=== PATIENT | female | born 1970 ===

== ENCOUNTER → 2024-05-20 00:18 | Outpatient (CLI) | payer BC, SELFPAY ==
--- NOTE | 2024-05-20 | ETT_ITS ---
APPROVED REPORT Exam: Exercise Treadmill Patient Location: Out-Patient Room/Bed: Stress Nurse: Kirsten Vázquez RN Ordering Provider:GIOVANNI BEGUME, Contact Number: [phone] BMI: 30.99 Baseline Rhythm: Sinus Rhythm Indications: Chest pain Medical History Medical History: HTN, hypothyroidism, migraines, R hip pain Cardiac Medications: Amlodipine, levothyroxine Allergies: NKDA Cardiac Risk Factors: Family hx, HTN Previous Cardiac Procedures: None Pretest Chest Pain Characteristics: 3/10 chest pressure Exercise History: Physically active Physical Disabilities: None Lung Sounds: Clear to auscultation Heart Sounds: Regular Stress Test Details Test: Exercise stress testing was performed using a Ean protocol. Rest Stress HR Resting HR Supine: 68 bpm Max Heart Rate (APMHR): 168 bpm Resting HR Standin bpm Target HR (85% APMHR): 143 bpm Max HR Achieved: 154 bpm % of APMHR: 92 Recovery HR: 90 bpm HR response to stress: Normal HR response to stress BP Resting BP Supine: 146/88 mmHg Resting BP Standin/80 mmHg Max BP: 174/68 mmHg Recovery BP: 142/70 mmHg BP response to stress: Normal blood pressure response to stress. ECG Resting ECG: Sinus Rhythm Ectopy: None Stress ECG: Sinus Tachycardia ST Change: No significant ST segment changes noted Arrhythmia: None Recovery ECG: Sinus Rhythm Recovery ST Change: No significant ST segment changes noted Recovery Arrhythmia: None Clinical Reason for Termination: Target HR Achieved Stress Symptoms: 3/10 chest pressure unchanged from rest Exercise duration: 09 min30 sec Highest Stage Reached: Stage 4: 4.2 mph at 16% grade. Exercise capacity: 10.99 METs Angina Score: Non-Limiting Ann Treadmill Score: 5.5 Rate Pressure Product: 03185 Stress ECG Conclusion 1. Resting electrocardiogram showed low voltage 2. Patient exercised on the Ean protocol and completed a workload of 10.99 METS 3. Normal heart rate and blood pressure response to exercise. The patient achieved 92% of predicted heart rate for age 4. There was no electrocardiographic evidence of myocardial ischemia 5. There were no significant dysrhythmias Ann Treadmill Score is 5.5 which is Low risk.
--- OUTSIDE RECORDS SUMMARY | 2024-05-20 00:21 | XMS_ITS | Continuity of Care Document ---
Author Organization [facility] Address [address] [place] [address] Care Team Providers Care Preschool Teacher Assistant Name Role Phone Robert Toussaint Primary Care Physician Encounter [facility] Date(s): 01/07/23 - 01/07/[address] [address] Discharge Disposition: Home or Self Care Attending Physician: Robert Toussaint MD Admitting Physician: Robert Toussaint MD Referring Physician: Robert Toussaint MD Allergies, Adverse Reactions, Alerts No Known Medication Allergies Assessment and Plan Future Appointments Immunizations Given and Recorded Vaccine Date Status Refusal Reason influenza virus vaccine, live 07/28/21 Recorded influenza virus vaccine, live 08/03/20 Recorded influenza virus vaccine, live 07/20/19 Recorded influenza virus vaccine, live 08/05/18 Recorded SARS-CoV-2 (COVID-19) mRNA-1273 vaccine 11/15/20 R ecorded SARS-CoV-2 (COVID-19) mRNA-1273 vaccine 10/19/20 R ecorded tetanus-diphth toxoids (Td) adult/adol 05/25/19 Re corded influenza virus vaccine, inactivated 08/22/16 Braden rded influenza virus vaccine, inactivated 08/10/15 Braden rded influenza virus vaccine, inactivated 07/28/14 Braden rded influenza virus vaccine, inactivated 07/29/13 Braden rded influenza virus vaccine, inactivated 07/27/12 Braden rded influenza virus vaccine, inactivated 07/11/11 Braden rded influenza virus vaccine, inactivated 07/27/10 Braden rded influenza virus vaccine, inactivated 08/14/09 Braden rded Novel [id number], all formulation 08/22/09 Recorded tetanus/diphth/pertuss (Tdap) adult/adol 08/20/08 Recorded measles/mumps/rubella virus vaccine 03/05/04 Recor ded varicella virus vaccine 03/05/04 Recorded Medications SHIPPING FEE NON URGENT SHIPPING FEE NON URGENT, VTDOHTB MED SHIPPING Start Date: 05/13/22 Status: Ordered [place] RIFAMPIN 300MG CAP VT RIFAMPIN 300MG CAP, See Instructions, TAKE 2 CAPSULES BY MOUTH DAILY Start Date: 05/13/22 Status: Ordered Problem List Condition Confirmation Course Effective Dates Status H ealth Status Informant Genuine stress incontinence Confirmed Active On examination - breast lump-upper out-quad Confirmed Active Lateral epicondylitis Confirmed Active Lipoma of back Confirmed 09/22/19 Active Melanocytic nevus Confirmed Active Migraine Confirmed Active Spasmodic torticollis Confirmed Active Verruca plantaris Confirmed Active Procedures Procedure Date Related Diagnosis Body Site Status Mammogram - screening 1 08/06/22 C ompleted Colonoscopy 2 07/25/22 Completed Eye surgery 05/02/22 Completed Excision of lipoma 09/30/19 Comple codi Procedure on knee 3 08/26/19 Compl eted PAP test date 4 01/13/19 Completed Partial meniscectomy of knee 12/22/12 Completed Tubal ligation 10/26/95 Completed 210 yr cb 3Left knee 4Pap Due - 12/2023 08/20/08 - WNL; 08/27/10 - WNL/Neg; 10/13/15 - ASCUS/Neg; 01/14/19 - Neg/Neg Results Laboratory List Name Date Basic Metabolic Panel 01/07/23 CBC w/ Diff 01/07/23 Lipid Panel 01/07/23 TSH w/ Rflx to Free T4 01/07/23 Free T4 01/07/23 Automated Diff 01/07/23 Most recent to oldest [Reference Range]: 1 WBC [5.0-10.0 x10^3/mcL] 4.7 x10^3/mcL *LOW* (01/07/23 7:57 AM) RBC [4.1-5.3 x10^6/mcL] 4.6 x10^6/mcL (01/07/23 7:57 AM) Neutro Auto [40.0-75.0 %] 64.1 % (01/07/23 7:57 AM) Lymph Auto [20.0-50.0 %] 25.1 % (01/07/23 7:57 AM) Broome Auto [2.0-15.0 %] 8.3 % (01/07/23 7:57 AM) Basophil Auto [0.0-1.0 %] 0.4 % (01/07/23 7:57 AM) BUN [7-18 mg/dL] 20 mg/dL *HI* (01/07/23 7:57 AM) Cholesterol Total [50-200 mg/dL] 199 mg/ dL (01/07/23 7:57 AM) LDL [0-130 mg/dL] 124 mg/dL (01/07/23 7:57 AM) Glucose Level [74-106 mg/dL] 92 mg/dL (01/07/23:57 AM) Potassium Level [3.5-5.1 mmol/L] 3.7 mmo l/L (01/07/23:57 AM) MCV [80.0-96.0] 87.5 (01/07/23 7:57 AM) HDL [40-60 mg/dL] 53 mg/dL (01/07/23 7:57 AM) T4 Free [0.76-1.46 ng/dL] 0.78 ng/dL (01/07/23 7:57 AM) MCHC [31.0-35.0 g/dL] 32.5 g/dL (01/07/23 7:57 AM) Sodium Level [136-145 mmol/L] 141 mmol/L (01/07/23 7:57 AM) Hct [37.0-47.0 %] 40.0 % (01/07/23 7:57 AM) Triglycerides [0-150 mg/dL] 110 mg/dL (01/07/23 7:57 AM) Calcium Level [8.5-10.1 mg/dL] 8.8 mg/dL (01/07/23 7:57 AM) MCH [26.0-32.0 pg] 28.4 pg (01/07/23 7:57 AM) Neutro Absolute 3.0 x10^3/mcL *NA* (01/07/23 7:57 AM) Hgb [12.0-16.0 g/dL] 13.0 g/dL (01/07/23 7:57 AM) Platelets [130-450 x10^3/mcL] 225 x10^3/ mcL (01/07/23 7:57 AM) CO2 [21-32 mmol/L] 26 mmol/L (01/07/23 7:57 AM) TSH [0.358-3.740 mcIntlUnit/mL] 6.206 mc IntlUnit/mL *HI* (01/07/23 7:57 AM) eGFR Non-AA [>=60] 88 (01/07/23 7:57 AM) eGFR AA [>=60] 88 (01/07/23 7:57 AM) Chloride Level [98-107 mmol/L] 105 mmol/ L (01/07/23 7:57 AM) RDW-CV [11.7-17.0 %] 11.9 % (01/07/23 7:57 AM) Imm Gran Auto [0.0-0.9 %] 0.2 % (01/07/23 7:57 AM) Creatinine Level [0.55-1.02 mg/dL] 0.81 mg/dL (01/07/23 7:57 AM) Eos, Auto [1.0-6.0 %] 1.9 % (01/07/23 7:57 AM) Social History Social History Type Response Tobacco Never tobacco user T obacco Use:. Sex Female Patient Care team information Care Team Personnel Name: Robert Toussaint MD Position: Physician Member Role: Primary Care Physician Address: Address: [address] [place] [id number] Care Team Related Persons Name: VANESSA BROWN Address: Alternate [address] [facility] [address] Address: Home [address] [place], [place] [phone] Name: NIRMAL AMBROSE Address: Home [address] [place] [phone] Name: RON CARTER Address: Home
--- OUTSIDE RECORDS SUMMARY | 2024-05-20 00:21 | XMS_ITS | Continuity of Care Document ---
Author Organization [facility] Address [address] [place] [address] Care Team Providers Care Cook Vacuum Kettle Name Role Phone Robert Toussaint Primary Care Physician [phone] Encounter [facility] Date(s): 01/06/23 - 01/06/[address] [address] Discharge Disposition: Home or Self Care Attending [...] virus vaccine, inactivated 08/14/09 Braden rded Novel [id number], all formulation 08/22/09 Recorded tetanus/diphth/pertuss (Tdap) adult/adol [...] WNL/Neg; 10/13/15 - ASCUS/Neg; 01/14/19 - Neg/Neg Social History Social History Type Response Tobacco Never tobacco user T obacco Use:. Sex Female Patient Care team information Care Team Personnel Name: Robert Toussaint MD Position: Physician Member Role: Primary Care Physician Address: Address: [address] [place] [address] [place] Care Team Related Persons Name: VANESSA BROWN Address: Alternate [address] [facility] [address] Address: Home [address] [place], [place] [phone] Name: NIRAML AMBROSE Address: Home [address] [place] [phone] Name: RON CARTER Address: Home
--- OUTSIDE RECORDS SUMMARY | 2024-05-20 00:21 | XMS_ITS | Encounter Summary ---
Author Organization [facility] [place] [address] Care Team Providers Care Issuer Name Role Phone Kris Vang DO Primary Care Provider [phone] Encounter Details Date Type Department Care Team (Latest Contact Info) Description 09/05/2023 Travel Social History Tobacco Use Types Packs/Day Years Used Date Smoking Tobacco: Never Smokeless Tobacco: Never Sex and Gender Information Value Date Recorded Sex Assigned at Not on file Gender Identity Not on file Sexual Orientation Not on file documented as of this encounter Plan of Treatment Upcoming Encounters Date Type Department Care Team (Late st Contact Info) Description 08/03/2024 10:45 AM EDT Scheduled View Only [facility] [place] [address] Nurse, Theresa EATON RN 08/03/2024 11:00 AM EDT Office Visit Obstetrics [place] [phone] Elvia Renee MD [facility] [place] [address] documented as of this encounter Visit Diagnoses Not on filedocumented in this encounter Care Teams Issuer Relationship Specialty Start Date End Date Kris Vang DO [address] [place] [address] [place] [phone] PCP - General General Internal Medicine 07/30/1902/24 documented as of this encounter
--- OUTSIDE RECORDS SUMMARY | 2024-05-20 00:21 | XMS_ITS | Continuity of Care Document ---
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 Name Role Phone Robert Toussaint Primary Care Physician Encounter [facility] Date(s): 04/27/24 - 04/27/[address] [id number] Encounter Diagnosis Atypical chest pain(Discharge Diagnosis) - 04/27/24 Discharge Disposition: Home or Self Care Attending Physician: Brendon Baker MD Admitting Physician: Brendon Baker MD Allergies, Adverse Reactions, Alerts No Known Medication Allergies Assessment and Plan Extracted from: Title:ED Provider Note Author:Mihai Zuniga MD Date:04/28/24 Assessment/Plan 1.??Atypical chest pain??R07.89 Patient Education Nonspecific Chest Pain, Adult Troponin Test Follow Up With When Contact Information Follow up with primary care provider Within 1 to 2 days Additional Instructions: You been seen in the emergency department and no emergent medical condition has been identified. ??It is recommended that you follow-up with your primary care provider within the next??48 hours. ??If your condition worsens or you are unable to??arrange for appropriate follow-up please??reach out to the emergency department by phone or return to the emergency department for repeat evaluation. Future Appointments Future Scheduled Tests Laboratory* Thyroid Stimulating Hormone 04/07/24 * TSH w/ Rflx to Free T4 07/07/24 * TSH w/ Rflx to Free T4 07/07/24 Immunizations Given and Recorded Vaccine Date Status [...] virus vaccine, inactivated 08/14/09 Braden rded Novel [id number], all formulation 08/22/09 Recorded tetanus/diphth/pertuss (Tdap) adult/adol 08/20/08 Recorded measles/mumps/rubella virus vaccine 03/05/04 Recor ded varicella virus vaccine 03/05/04 Recorded Medications amLODIPine 2.5 mg oral tablet 1 tab, Oral, Daily, # 30 tab, 1 Refill(s), Pharmacy: [facility], 162, cm, 04/19/24 7:23:00 EDT, Height, 80.8, kg, 04/19/24 7:21:00 EDT, Weight Dosing Start Date: 04/27/24 Status: Ordered amoxicillin 500 mg oral capsule 500 mg = 1 cap, Oral, BID, # 14 cap, 0 Refill(s), Pharmacy: [facility], 160.6, cm, 01/26/24 15:11:00 EDT, Height, 81.15, kg, 01/26/24 15:21:00 EDT, Weight Dosing Start Date: 01/28/24 Stop Date: 02/04/24 Status: Ordered estradiol 10 mcg vaginal tablet 10 mcg = 1 tab, Vaginal, Sun/Thurs, # 26 tab, 4 Refill(s), Pharmacy: [facility], 158.75, cm, 07/10/23 15:34:00 EDT, Height, 80.9, kg, 01/12/24 15:58:00 EDT, Weight Dosing Start Date: 01/19/24 Stop Date: 04/13/25 Status: Ordered ibuprofen 200 mg oral tablet 400 mg = 2 tab, Oral, every 4 hr, PRN as needed for pain, # 120 tab, 0 Refill(s) Start Date: 01/12/24 Status: Ordered levothyroxine 75 mcg (0.075 mg) oral tablet 75 mcg = 1 tab, Oral, Daily, # 90 tab, 3 Refill(s), Pharmacy: [facility], 160.6, cm, 01/26/24 15:11:00 EDT, Height, 81.15, kg, 01/26/24 15:21:00 EDT, Weight Dosing Start Date: 04/06/24 Status: Ordered Tylenol PM 0 Refill(s) Start Date: 01/12/24 Status: Ordered Problem List Condition Confirmation Course Effective Dates Status H ealth Status Informant Degenerative disc disease, cervical Confirmed Active Stress incontinence, female Confirmed Active Genuine stress incontinence Confirmed Active Right hip pain Confirmed Active On examination - breast lump-upper out-quad Confirmed Active Hypertension Confirmed Active Hypothyroidism Confirmed Active Lateral epicondylitis Confirmed Active Lipoma of back Confirmed 09/22/19 Active Melanocytic nevus Confirmed Active Migraine Confirmed Active Spasmodic torticollis Confirmed Active Verruca plantaris Confirmed Active Procedures Procedure Date Related Diagnosis Body Site Status Excision 04/18/24 Completed Mammogram - screening 1 08/06/22 C ompleted Colonoscopy 2 07/25/22 Completed Eye surgery 05/02/22 Completed Excision of lipoma 09/30/19 Comple codi Procedure on knee 3 08/26/19 Compl eted Due 12/2023 4 01/13/19 Completed Partial meniscectomy of knee 12/22/12 Completed Tubal ligation 10/26/95 Completed 89 yr cb 3Left knee 4Pap Due - 12/2023 08/20/08 - WNL; 08/27/10 - WNL/Neg; 10/13/15 - ASCUS/Neg; 01/14/19 - Neg/Neg Results Laboratory List Name Date CBC w/ Diff 04/27/24 Comprehensive Metabolic Panel (CMP) D-Dimer 04/27/24 Troponin-I 04/27/24 Automated Diff 04/27/24 Most recent to oldest [Reference Range]: 1 WBC [5.0-10.0 x10^3/mcL] 6.7 x10^3/mcL (04/27/24 7:35 PM) RBC [4.1-5.3 x10^6/mcL] 4.4 x10^6/mcL (04/27/24 7:35 PM) Neutro Auto [40.0-75.0 %] 65.7 % (04/27/24 7:35 PM) Lymph Auto [20.0-50.0 %] 23.4 % (04/27/24 7:35 PM) [place] Auto [2.0-15.0 %] 8.8 % (04/27/24 7:35 PM) Basophil Auto [0.0-1.0 %] 0.3 % (04/27/24 7:35 PM) BUN [7-18 mg/dL] 16 mg/dL (04/27/24 7:35 PM) Glucose Level [74-106 mg/dL] 91 mg/dL (04/27/24 7:35 PM) Potassium Level [3.5-5.1 mmol/L] 3.4 mmo l/L *LOW* (04/27/24 7:35 PM) MCV [80.0-96.0 fL] 83.2 fL (04/27/24 7:35 PM) AST [15-37 unit/L] 18 unit/L (04/27/24 7:35 PM) ALT [14-59 unit/L] 18 unit/L (04/27/24 7:35 PM) MCHC [31.0-35.0 g/dL] 34.3 g/dL (04/27/24 7:35 PM) Troponin-I [0.0-51.4 pg/mL] <5.0 pg/mL (04/27/24 7:35 PM) Sodium Level [136-145 mmol/L] 138 mmol/L (04/27/24 7:35 PM) Hct [37.0-47.0 %] 36.7 % *LOW* (04/27/24 7:35 PM) Calcium Level [8.5-10.1 mg/dL] 9.0 mg/dL (04/27/24 7:35 PM) Albumin Level [3.4-5.0 g/dL] 3.9 g/dL (04/27/24 7:35 PM) Protein Total [6.4-8.2 g/dL] 7.6 g/dL (04/27/24 7:35 PM) MCH [26.0-32.0 pg] 28.6 pg (04/27/24 7:35 PM) Neutro Absolute 4.4 x10^3/mcL *NA* (04/27/24 7:35 PM) Bilirubin Total [0.2-1.0 mg/dL] 0.4 mg/d L (04/27/24 7:35 PM) Hgb [12.0-16.0 g/dL] 12.6 g/dL (04/27/24 7:35 PM) Alk Phos [46-146 unit/L] 81 unit/L (04/27/24 7:35 PM) Platelets [130-450 x10^3/mcL] 241 x10^3/ mcL (04/27/24 7:35 PM) CO2 [21-32 mmol/L] 25 mmol/L (04/27/24 7:35 PM) eGFR Non-AA [>=60] 94 (04/27/24 7:35 PM) eGFR AA [>=60] 94 (04/27/24 7:35 PM) Chloride Level [98-107 mmol/L] 102 mmol/ L (04/27/24 7:35 PM) RDW-CV [11.5-14.5 %] 12.4 % (04/27/24 7:35 PM) Imm Gran Auto [0.0-0.9 %] 0.3 % (04/27/24 7:35 PM) Slide Review Not Indicated (04/27/24 7:35 PM) Creatinine Level [0.55-1.02 mg/dL] 0.76 mg/dL (04/27/24 7:35 PM) D Dimer, (Quant.) [0.00-0.50 mg/L] 0.36 mg/L 1 (04/27/24 7:35 PM) Eos, Auto [1.0-6.0 %] 1.5 % (04/27/24 7:35 PM) 1Interpretive Data: Exclusion of PE: Effective July 15, 2012 a new D-Dimer assay [Knozen] is being implemented, this test has a new reference range <0.50 mg/L FEU. This assay was evaluated in a multi-center study to validate the exclusion of PE using fresh specimens collected from 701 consecutive patients presenting in the ED with suspected PE. Study patients were evaluated using the Wells' rules to estimate high, moderate or low probability of PE, a D-Dimer result of <0.50 mg/L FEU was considered negative and a D-Dimer result >/= 0.50 was considered positive for PE. Vital Signs Most recent to oldest [Reference Range]: 1 2 3 Heart Rate Monitored [60-100 bpm] 77 bpm (04/27/24 8:39 PM) 75 bpm (04/27/24 7:30 PM) 78 bpm (04/27/24 6:38 PM) Respiratory Rate [12-24 br/min] 14 br/min (04/27/24 8:39 PM) 16 br/min (04/27/24 7:30 PM) 17 br/min (04/27/24 6:38 PM) Blood Pressure [90-140/60-90 mmHg] 129/74mmHg (04/27/24 7:30 PM) 119/87mmHg (04/27/24 6:38 PM) Social History Social History Type Response Tobacco Never tobacco user T obacco Use:. Sex Female Hospital Discharge Instructions Patient Education 04/27/2024 19:38:16 Nonspecific Chest Pain, Adult Nonspecific Chest Pain, Adult Chest pain is an uncomfortable, tight, or painful feeling in the chest. The pain can feel like a crushing, aching, or squeezing pressure. A person can feel a burning or tingling sensation. Chest paincan also be felt in your back, neck, jaw, shoulder, or arm. This pain can be worse when you move, sneeze, or take a deep breath. Chest pain can be caused by a condition that is life-threatening. This must be treated right away. It can also be caused by something that is not life- threatening. If you have chest pain, it can be hard to know the difference, so it is important to get help right away to make sure that you do not have a serious condition. Some life-threatening causes of chest pain include: ??? Heart attack. ??? A tear in the body's main blood vessel (aortic dissection). ??? Inflammation around your heart (pericarditis). ??? A problem in the lungs, such as a blood clot (pulmonary embolism) or a collapsed lung (pneumothorax). Some non life-threatening causes of chest pain include: ??? Heartburn. ??? Anxiety or stress. ??? Damage to the bones, muscles, and cartilage that make up your chest wall. ??? Pneumonia or bronchitis. ??? Shingles infection (varicella-zoster virus). Your chest pain may come and go. It may also be constant. Your health care provider will do tests and other studies to find the cause of your pain. Treatment will depend on the cause of your chest pain. Follow these instructions at home: Medicines ??? Take [id number] and prescription medicines only as told by your health care provider. ??? If you were prescribed an antibiotic medicine, take it as told by your health care provider. Donot stop taking the antibiotic even if you start to feel better. Activity ??? Avoid any activities that cause chest pain. ??? Do not lift anything that is heavier than 10 lb (4.5 kg), or the limit that you are told, untilyour health care provider says that it is safe. ??? Rest as directed by your health care provider. ??? Return to your normal activities only as told by your health care provider. Ask your health care provider what activities are safe for you. Lifestyle ??? Do not use any products that contain nicotine or tobacco, such as cigarettes, e-cigarettes, andchewing tobacco. If you need help quitting, ask your health care provider. ??? Do not drink alcohol. ??? Make healthy lifestyle changes as recommended. These may include: ??? Getting regular exercise. Ask your health care provider to suggest some exercises that are safefor you. ??? Eating a heart-healthy diet. This includes plenty of fresh fruits and vegetables, whole grains,low-fat (lean) protein, and low-fat dairy products. A dietitian can help you find healthy eating options. ??? Maintaining a healthy weight. ??? Managing any other health conditions you may have, such as high blood pressure (hypertension) or diabetes. ??? Reducing stress, such as with yoga or relaxation techniques. General instructions ??? Pay attention to any changes in your symptoms. ??? It is up to you to get the results of any tests that were done. Ask your health care provider, or the department that is doing the tests, when your results will be ready. ??? Keep all follow-up visits as told by your health care provider. This is important. ??? You may be asked to go for further testing if your chest pain does not go away. Contact a health care provider if: ??? Your chest pain does not go away. ??? You feel depressed. ??? You have a fever. ??? You notice changes in your symptoms or develop new symptoms. Get help right away if: ??? Your chest pain gets worse. ??? You have a cough that gets worse, or you cough up blood. ??? You have severe pain in your abdomen. ??? You faint. ??? You have sudden, unexplained chest discomfort. ??? You have sudden, unexplained discomfort in your arms, back, neck, or jaw. ??? You have shortness of breath at any time. ??? You suddenly start to sweat, or your skin gets clammy. ??? You feel nausea or you vomit. ??? You suddenly feel lightheaded or dizzy. ??? You have severe weakness, or unexplained weakness or fatigue. ??? Your heart begins to beat quickly, or it feels like it is skipping beats. These symptoms may represent a serious problem that is an emergency. Do not wait to see if the symptoms will go away. Get medical help right away. Call your local emergency services (911 in the [place] Do not drive yourself to the hospital. Summary ??? Chest pain can be caused by a condition that is serious and requires urgent treatment. It may also be caused by something that is not life-threatening. ??? Your health care provider may do lab tests and other studies to find the cause of your pain. ??? Follow your health care provider's instructions on taking medicines, making lifestyle changes, and getting emergency treatment if symptoms become worse. ??? Keep all follow-up visits as told by your health care provider. This includes visits for any further testing if your chest pain does not go away. This information is not intended to replace advice given to you by your health care provider. Make sure you discuss any questions you have with your health care provider. Document Revised: 12/25/2021 Document Reviewed: 12/27/2021 [employer] Patient Education ?? 2022 [employer] 04/27/2024 19:38:15 Troponin Test Troponin Test Why am I having this test? The troponin test is used to help determine if you have had a heart attack or other injury to the heart muscle. The heart muscle is also called a cardiac muscle. You may have this test if: ??? You are having chest pain or other symptoms of a heart attack. ??? You have heart disease. ??? You have had heart surgery. ??? You had complications during surgery, such as bleeding or very low blood pressure. ??? You have a critical illness (sepsis). ??? You have severe anemia (low hemoglobin). The test is used along with other tests to diagnose heart damage (ischemia). What is being tested? This test measures the concentration of troponin in your blood. Troponins are proteins that help muscles contract. Cardiac-specific troponins are normally present in very small amounts in the blood. When there is damage to heart muscle cells, troponins are released into the blood. The more damage there is, the greater the concentration of troponins. There is more than one type of troponin protein. Depending on the lab where you have your test done, you may have troponin T, troponin I, or a high-sensitivity troponin (hsT) tested. When a person has damage to the heart cells, levels of troponin can become elevated in the blood within a few hours after the injury and may remain elevated for 7???14 days. What kind of sample is taken? A blood sample is required for this test. It is usually collected by inserting a needle into a blood vessel. Usually, the first blood sample is collected, and then another sample is collected 1???6 hours later. Another sample may be collected after 6 hours if: ??? Your results were normal, but you are at risk for a heart attack. ??? You had a heart attack, and your health care provider wants to monitor your treatment. How do I prepare for this test? There is no preparation required for this test. How are the results reported? Your test results will be reported as values. Your health care provider will compare your results to normal ranges that were established after testing a large group of people (reference ranges). Reference ranges may vary among labs and hospitals. For this test, some examples of common reference ranges are: ??? Cardiac troponin T: less than 0.1 ng/mL. ??? Cardiac troponin I: less than 0.04 ng/mL. ??? hsT: less than 10 ng/L in women and less than 15 ng/L in men. What do the results mean? Troponin values above the reference values may indicate: ??? Heart attack. ??? Heart failure. ??? Other injury to the heart muscle. ??? Inflammation of the heart muscle (myocarditis). A result above the reference range does not always mean that you have heart damage. Test levels canbe falsely elevated in people after dialysis or in people with certain medical conditions. Talk with your health care provider about what your results mean. Questions to ask your health care provider Ask your health care provider, or the department that is doing the test: ??? When will my results be ready? How will I get my results? What are my treatment options? What other tests do I need? What are my next steps? Summary ??? The cardiac-specific troponin test is used to determine if you have had a heart attack or otherinjury to cardiac muscle. ??? Usually, the first blood sample is collected, and then another blood sample is collected 1???6 hours later, depending on the test performed. ??? Troponin values above the reference values may indicate heart attack or other injury to cardiacmuscle. ??? Talk with your health care provider about what your results mean. This information is not intended to replace advice given to you by your health care provider. Make sure you discuss any questions you have with your health care provider. Document Revised: 05/17/2022 Document Reviewed: 05/17/2022 [employer] Patient Education ?? 2022 [employer] Follow Up Care 04/27/2024 18:31:44 With:Follow up with primary care provider Address: When:1 to 2 days Comments:You been seen in the emergency department and no emergent medical condition has been identified. ??It is recommended that you follow-up with your primary care provider within the next??48 hours. ??Ifyour condition worsens or you are unable to??arrange for appropriate follow-up please??reach out [facility] emergency department by phone or return to the emergency department for repeat evaluation. Physician Emergency department Note * Mihai Zuniga MD: PERFORM Event Display: ED Note Physician Authored Date: [id number] BERNIE AMBROSE :1970 Age:54 years Sex:Female Visit Date:04/27/2024 Primary Care Physician: Robert Toussaint MD Basic Information Time Seen: Mihai Zuniga MD / 04/27/2024 19:10 Chief Complaint Intermittent right side upper chest/shoulder pain x 1 week with it becoming more constant today. SOme ??tingling in right arm History Of Present Illness: Patient with a recent history of a lipoma removal from the right outer hip.?? Now presents with??several days of intermittent chest??pressure and tightness.?? No shortness of breath.?? Some tingling to the right arm.?? Has not had symptoms??like this in the past and they presented post operatively. ?? She denies fevers denies cough.?? States that the pain from the operation is subsided??and she feels like she is recovering well. No previous episodes of chest pain similar to this that required presentation to emergency department Review of Systems: Constitutional:?No??fevers,?No??chills,?No??sweats Eye:?No??recent visual problems ENT:?No??ear pain,?No??nasal congestion,?No??sore throat Respiratory:?No??shortness of breath,?No??cough Cardiovascular:?palpitations,?No??syncope Gastrointestinal:?Nonausea,?No??vomiting,?No??diarrhea Genitourinary:?No??hematuria Andi/Lymph:?No??bruising tendency,?No??swollen lymph glands Endocrine:?No??excessive thirst,??No??excessive hunger Musculoskeletal:??No??back pain,??No??neck pain,??No??joint pain,??No??muscle pain,??No??decreased range of motion Integumentary:?No??rash,?No??pruritus,?No??abrasions Neurologic: Alert & oriented X 4 Psychiatric:?No??anxiety,?No??depression Physical Exam Vitals & Measurements HR:??77??(Monitored)?? RR:??14?? BP:??129/74?? SpO2:??97%?? Pain Score:??5?? O2 Therapy:??Room air?? General: Alert and oriented, well nourished,?No??acute distress Eye: PERRL, EOMI,?Normal??conjunctiva HENT: Normocephalic,??Normal?? hearing, moist oral mucosa,?No??scleral icterus Neck:??FROM,??No??JVD Lungs: Non-labored?? respiration Heart:?Normal?? rate,?Regular??rhythm,?No??peripheral edema, Adequate peripheral perfusion Abdomen: Soft, non-tender, non-distended,?Normal?? bowel sounds,?No??masses Musculoskeletal:?Normal?? range of motion and strength,?No??tenderness,?No??swelling Skin:??No??rashes,?No??lesions, Dry Neurologic: Awake, alert and oriented X4, CN II-XII intact, Steady Gait Psychiatric: Cooperative, appropriate mood and affect. Linear thought process Medical Decision Making: Exam without evidence of volume overload so doubt heart failure. EKG without signs of active ischemia. Given the timing of pain to ER presentation, single troponin_ delta troponin_ was _ so doubt NSTEMI. Presentation not consistent with acute PEDDIMER??NEGATIVE??,??pneumothorax (not visualized on chest xr), thoracic aortic dissection, pericarditis, tamponade, pneumonia (no infectious symptoms, clear chest xr), myocarditis (no recent illness, neg trop). HEART score:0??so plan to discharge patient home with PMD follow up__. Procedure No Qualifying Data Assessment/Plan 1.??Atypical chest pain??R07.89 Patient Education Nonspecific Chest Pain, Adult Troponin Test Follow Up With When Contact Information Follow up with primary care provider Within 1 to 2 days Additional Instructions: You been seen in the emergency department and no emergent medical condition has been identified. ??It is recommended that you follow-up with your primary care provider withinthe next??48 hours. ??If your condition worsens or you are unable to??arrange for appropriate follow-up please??reach out to the emergency department by phone or return to the emergency department for repeat evaluation. Medication Reconciliation Unchanged acetaminophen-diphenhydramine (Tylenol PM) ?? amLODIPine (amLODIPine 2.5 mg oral tablet)1 tab Oral (given by mouth) every day. Refills: 1. ?? amoxicillin (amoxicillin 500 mg oral capsule)1 Capsules Oral (given by mouth) 2 times a day for 7 Days. Refills: 0. ?? estradiol topical (estradiol 10 mcg vaginal tablet)1 tab Vaginal (in the vagina) Sun/Thurs for 90 Days. Refills: 4. ?? ibuprofen (ibuprofen 200 mg oral tablet)2 tab Oral (given by mouth) every 4 hours as needed as needed for pain. ?? levothyroxine (levothyroxine 75 mcg (0.075 mg) oral tablet)1 tab Oral (given by mouth) every day. Refills: 3. Problem List/Past Medical History Ongoing Degenerative disc disease, cervical Genuine stress incontinence Hypertension Hypothyroidism Lateral epicondylitis Lipoma of back Melanocytic nevus Migraine On examination - breast lump-upper out-quad Right hip pain Spasmodic torticollis Stress incontinence, female Verruca plantaris Historical Procedure/Surgical History ???Mammogram - screening (08/07/2022)???Colonoscopy (07/26/2022)???Eye surgery (05/03/2022)???Excision of lipoma (10/01/2019)???Procedure on knee (08/27/2019)???Due 12/2023 (01/14/2019)???Partial meniscectomy of knee (12/23/2012)???Tubal ligation (10/27/1995) Allergies No Known Medication Allergies Social History Alcohol Current, 1-2 times per month Electronic Cigarette/Vaping Electronic Cigarette Use: Never. Home/Environment Feels unsafe at home: No. Sexual Other contraceptive use: Tubal Ligation. Substance Use Never Tobacco Never tobacco user Tobacco Use:. Family History Diabetes mellitus: Father and Sister. Epilepsy: Brother. Heart disease: Father. Hypertensive disorder: Father. Hypothyroidism: Mother. Malignant tumor of prostate: Father. Diagnostic Results ECG Sinus at a rate of [address] changes consistent with ischemia.?? No ectopy.?? No [id number] pattern Lab Results CBC and Differential?? LATEST RESULTS?? HISTORICAL RESULTS?? WBC?? 04/27/24 19:35?? 6.7?? 01/07/23?? 4.7 ??Low?? RBC?? 04/27/24 19:35?? 4.4?? 01/07/23?? 4.6?? Hgb?? 04/27/24 19:35?? 12.6?? 01/07/23?? 13.0?? Hct?? 04/27/24 19:35?? 36.7 ??Low?? 01/07/23?? 40.0?? MCV?? 04/27/24 19:35?? 83.2?? 01/07/23?? 87.5?? MCH?? 04/27/24 19:35?? 28.6?? 01/07/23?? 28.4?? MCHC?? 04/27/24 19:35?? 34.3?? 01/07/23?? 32.5?? RDW-CV?? 04/27/24 19:35?? 12.4?? 01/07/23?? 11.9?? Platelets?? 04/27/24 19:35?? 241?? 01/07/23?? 225?? Neutro Auto?? 04/27/24 19:35?? 65.7?? 01/07/23?? 64.1?? Lymph Auto?? 04/27/24 19:35?? 23.4?? 01/07/23?? 25.1?? [place] Auto?? 04/27/24 19:35?? 8.8?? 01/07/23?? 8.3?? Eos, Auto?? 04/27/24 19:35?? 1.5?? 01/07/23?? 1.9?? Basophil Auto?? 04/27/24 19:35?? 0.3?? 01/07/23?? 0.4?? Imm Gran Auto?? 04/27/24 19:35?? 0.3?? 01/07/23?? 0.2?? Neutro Absolute?? 04/27/24 19:35?? 4.4?? 01/07/23?? 3.0?? Slide Review?? 04/27/24 19:35?? Not Indicated? Coagulation?? LATEST RESULTS?? D Dimer, (Quant.)?? 04/27/24 19:35?? 0.36? Routine Chemistry?? LATEST RESULTS?? HISTORICAL RESULTS?? Sodium Level?? 04/27/24 19:35?? 138?? 01/12/24?? 137?? Potassium Level?? 04/27/24 19:35?? 3.4 ??Low?? 01/12/24?? 3.7?? Chloride Level?? 04/27/24 19:35?? 102?? 01/12/24?? 102?? CO2?? 04/27/24 19:35?? 25?? 01/12/24?? 27?? Alk Phos?? 04/27/24 19:35?? 81? AST?? 04/27/24 19:35?? 18? ALT?? 04/27/24 19:35?? 18? BUN?? 04/27/24 19:35?? 16?? 01/12/24?? 17?? Glucose Level?? 04/27/24 19:35?? 91?? 01/12/24?? 95?? Creatinine Level?? 04/27/24 19:35?? 0.76?? 01/12/24?? 0.75?? eGFR AA?? 04/27/24 19:35?? 94?? 01/12/24?? 96?? eGFR Non-AA?? 04/27/24 19:35?? 94?? 01/12/24?? 96?? Calcium Level?? 04/27/24 19:35?? 9.0?? 01/12/24?? 9.3?? Protein Total?? 04/27/24 19:35?? 7.6? Albumin Level?? 04/27/24 19:35?? 3.9? Bilirubin Total?? 04/27/24 19:35?? 0.4? Cardiac Isoenzymes?? LATEST RESULTS?? Troponin-I?? 04/27/24 19:35?? <5.0? Electronically Signed on 04/28/2024 02:45 EDT Mihai Zuniga MD Emergency department Discharge instructions * Mihai Zuniga MD: PERFORM Event Display: ED Discharge Information Authored Date: [id number] BERNIE AMBROSE Juice :1970 Age:54 years Sex:Female Visit Date:04/27/2024 Primary Care Physician: Robert Toussaint MD Discharge Instructions We would like to thank you for allowing us to assist you with your healthcare needs. The following includes patient education materials and information regarding your injury/illness. Diagnosis from Today's Visit Atypical chest pain Discharge Vitals Heart Rate??(Monitored) 78 Respiratory Rate?? 17 Blood Pressure?? 119/87?? SpO2?? 100% Allergies No Known Medication Allergies What to Do Next You Need to Schedule the Following Appointments Follow Up with??Follow up with primary care provider When:??Within 1 to 2 days Why: You been seen in the emergency department and no emergent medical condition has been identified. ??It is recommended that you follow-up with your primary care provider within the next??48 hours.??If your condition worsens or you are unable to??arrange for appropriate follow-up please??reach out to the emergency department by phone or return to the emergency department for repeat evaluation. Upcoming Scheduled Appointments Friday 8:00 AM EDT ?? With: Fabricio Brooks MD Where: [facility] [address] [place] [address] Status: Confirmed Friday 8:30 AM EDT ?? With: Tania Aguirre CNM Where: [facility] [address], [address] [place] [address] Status: Confirmed You were treated today on an emergency basis; it may be barber to contact your primary care provider to notify them of your visit today. You may have been referred to your regular doctor or a specialist, please follow up as instructed. If your condition worsens or you can't get in to see the doctor, contact the Emergency Department. Medications What How Much When Why Instructions Next Dose Unchanged acetaminophen- diphenhydramine (Tylenol PM) Unchanged amLODIPine (amLODIPine 2.5 mg oral tablet) 1 tab Oral (given by mouth) Every day Unchanged amoxicillin (amoxicillin 500 mg oral capsule) 1 Capsules Oral (given by mouth) 2 times a day Acute UTI Duration: 7 Days Unchanged estradiol topical (estradiol 10 mcg vaginal tablet) 1 tab Vaginal (in the vagina) Sun/Thurs Duration: 90 Days Unchanged ibuprofen (ibuprofen 200 mg oral tablet) 2 tab Oral (given by mouth) Every 4 hours as needed for as needed for pain Unchanged levothyroxine (levothyroxine 75 mcg (0.075 mg) oral tablet) 1 tab Oral (given by mouth) Every day Education Materials Nonspecific Chest Pain, Adult Chest pain is an uncomfortable, tight, or painful feeling in the chest. The pain can feel like a crushing, aching, or squeezing pressure. A person can feel a burning or tingling sensation. Chest paincan also be felt in your back, neck, jaw, shoulder, or arm. This pain can be worse when you move, sneeze, or take a deep breath. Chest pain can be caused by a condition that is life-threatening. This must be treated right away. It can also be caused by something that is not life- threatening. If you have chest pain, it can be hard to know the difference, so it is important to get help right away to make sure that you do not have a serious condition. Some life-threatening causes of chest pain include: ? Heart attack. ? A tear in the body's main blood vessel (aortic dissection). ? Inflammation around your heart (pericarditis). ? A problem in the lungs, such as a blood clot (pulmonary embolism) or a collapsed lung (pneumothorax). Some non life-threatening causes of chest pain include: ? Heartburn. ? Anxiety or stress. ? Damage to the bones, muscles, and cartilage that make up your chest wall. ? Pneumonia or bronchitis. ? Shingles infection (varicella-zoster virus). Your chest pain may come and go. It may also be constant. Your health care provider will do tests and other studies to find the cause of your pain. Treatment will depend on the cause of your chest pain. Follow these instructions at home: Medicines ? Take [id number] and prescription medicines only as told by your health care provider. ? If you were prescribed an antibiotic medicine, take it as told by your health care provider. Do notstop taking the antibiotic even if you start to feel better. Activity ? Avoid any activities that cause chest pain. ? Do not lift anything that is heavier than 10 lb (4.5 kg), or the limit that you are told, until your health care provider says that it is safe. ? Rest as directed by your health care provider. ? Return to your normal activities only as told by your health care provider. Ask your health care provider what activities are safe for you. Lifestyle ? Do not use any products that contain nicotine or tobacco, such as cigarettes, e- cigarettes, and chewing tobacco. If you need help quitting, ask your health care provider. ? Do not drink alcohol. ? Make healthy lifestyle changes as recommended. These may include: ? Getting regular exercise. Ask your health care provider to suggest some exercises that are safe foryou. ? Eating a heart-healthy diet. This includes plenty of fresh fruits and vegetables, whole grains, low-fat (lean) protein, and low-fat dairy products. A dietitian can help you find healthy eating options. ? Maintaining a healthy weight. ? Managing any other health conditions you may have, such as high blood pressure (hypertension) or diabetes. ? Reducing stress, such as with yoga or relaxation techniques. General instructions ? Pay attention to any changes in your symptoms. ? It is up to you to get the results of any tests that were done. Ask your health care provider, or the department that is doing the tests, when your results will be ready. ? Keep all follow-up visits as told by your health care provider. This is important. ? You may be asked to go for further testing if your chest pain does not go away. Contact a health care provider if: ? Your chest pain does not go away. ? You feel depressed. ? You have a fever. ? You notice changes in your symptoms or develop new symptoms. Get help right away if: ? Your chest pain gets worse. ? You have a cough that gets worse, or you cough up blood. ? You have severe pain in your abdomen. ? You faint. ? You have sudden, unexplained chest discomfort. ? You have sudden, unexplained discomfort in your arms, back, neck, or jaw. ? You have shortness of breath at any time. ? You suddenly start to sweat, or your skin gets clammy. ? You feel nausea or you vomit. ? You suddenly feel lightheaded or dizzy. ? You have severe weakness, or unexplained weakness or fatigue. ? Your heart begins to beat quickly, or it feels like it is skipping beats. These symptoms may represent a serious problem that is an emergency. Do not wait to see if the symptoms will go away. Get medical help right away. Call your local emergency services (911 in the [place] Do not drive yourself to the hospital. Summary ? Chest pain can be caused by a condition that is serious and requires urgent treatment. It may also be caused by something that is not life-threatening. ? Your health care provider may do lab tests and other studies to find the cause of your pain. ? Follow your health care provider's instructions on taking medicines, making lifestyle changes, and getting emergency treatment if symptoms become worse. ? Keep all follow-up visits as told by your health care provider. This includes visits for any further testing if your chest pain does not go away. This information is not intended to replace advice given to you by your health care provider. Make sure you discuss any questions you have with your health care provider. Document Revised: 12/25/2021 Document Reviewed: 12/27/2021 [employer] Patient Education ?? 2022 [employer] Troponin Test Why am I having this test? The troponin test is used to help determine if you have had a heart attack or other injury to the heart muscle. The heart muscle is also called a cardiac muscle. You may have this test if: ? You are having chest pain or other symptoms of a heart attack. ? You have heart disease. ? You have had heart surgery. ? You had complications during surgery, such as bleeding or very low blood pressure. ? You have a critical illness (sepsis). ? You have severe anemia (low hemoglobin). The test is used along with other tests to diagnose heart damage (ischemia). What is being tested? This test measures the concentration of troponin in your blood. Troponins are proteins that help muscles contract. Cardiac-specific troponins are normally present in very small amounts in the blood. When there is damage to heart muscle cells, troponins are released into the blood. The more damage there is, the greater the concentration of troponins. There is more than one type of troponin protein. Depending on the lab where you have your test done, you may have troponin T, troponin I, or a high-sensitivity troponin (hsT) tested. When a person has damage to the heart cells, levels of troponin can become elevated in the blood within a few hours after the injury and may remain elevated for 7???14 days. What kind of sample is taken? A blood sample is required for this test. It is usually collected by inserting a needle into a blood vessel. Usually, the first blood sample is collected, and then another sample is collected 1???6 hours later. Another sample may be collected after 6 hours if: ? Your results were normal, but you are at risk for a heart attack. ? You had a heart attack, and your health care provider wants to monitor your treatment. How do I prepare for this test? There is no preparation required for this test. How are the results reported? Your test results will be reported as values. Your health care provider will compare your results to normal ranges that were established after testing a large group of people (reference ranges). Reference ranges may vary among labs and hospitals. For this test, some examples of common reference ranges are: ? Cardiac troponin T: less than 0.1 ng/mL. ? Cardiac troponin I: less than 0.04 ng/mL. ? hsT: less than 10 ng/L in women and less than 15 ng/L in men. What do the results mean? Troponin values above the reference values may indicate: ? Heart attack. ? Heart failure. ? Other injury to the heart muscle. ? Inflammation of the heart muscle (myocarditis). A result above the reference range does not always mean that you have heart damage. Test levels canbe falsely elevated in people after dialysis or in people with certain medical conditions. Talk with your health care provider about what your results mean. Questions to ask your health care provider Ask your health care provider, or the department that is doing the test: ? When will my results be ready? How will I get my results? What are my treatment options? What other tests do I need? What are my next steps? Summary ? The cardiac-specific troponin test is used to determine if you have had a heart attack or other injury to cardiac muscle. ? Usually, the first blood sample is collected, and then another blood sample is collected 1???6 hours later, depending on the test performed. ? Troponin values above the reference values may indicate heart attack or other injury to cardiac muscle. ? Talk with your health care provider about what your results mean. This information is not intended to replace advice given to you by your health care provider. Make sure you discuss any questions you have with your health care provider. Document Revised: 05/17/2022 Document Reviewed: 05/17/2022 [employer] Patient Education ?? 2022 [employer]. Tests Performed Lab Test Name Test Result Date/Time WBC 6.7 x10^3/mcL 04/27/2024 19:35 EDT RBC 4.4 x10^6/mcL 04/27/2024 19:35 EDT Hgb 12.6 g/dL 04/27/2024 19:35 EDT Hct 36.7 % 04/27/2024 19:35 EDT MCV 83.2 fL 04/27/2024 19:35 EDT MCH 28.6 pg 04/27/2024 19:35 EDT MCHC 34.3 g/dL 04/27/2024 19:35 EDT RDW-CV 12.4 % 04/27/2024 19:35 EDT Platelets 241 x10^3/mcL 04/27/2024 19:35 EDT Neutro Auto 65.7 % 04/27/2024 19:35 EDT Lymph Auto 23.4 % 04/27/2024 19:35 EDT [place] Auto 8.8 % 04/27/2024 19:35 EDT Eos, Auto 1.5 % 04/27/2024 19:35 EDT Basophil Auto 0.3 % 04/27/2024 19:35 EDT Imm Gran Auto 0.3 % 04/27/2024 19:35 EDT Neutro Absolute 4.4 x10^3/mcL 04/27/2024 19:35 EDT Slide Review Not Indicated 04/27/2024 19:35 EDT D Dimer, (Quant.) 0.36 mg/L 04/27/2024 19:35 EDT Sodium Level 138 mmol/L 04/27/2024 19:35 EDT Potassium Level 3.4 mmol/L 04/27/2024 19:35 EDT Chloride Level 102 mmol/L 04/27/2024 19:35 EDT CO2 25 mmol/L 04/27/2024 19:35 EDT Alk Phos 81 unit/L 04/27/2024 19:35 EDT AST 18 unit/L 04/27/2024 19:35 EDT ALT 18 unit/L 04/27/2024 19:35 EDT BUN 16 mg/dL 04/27/2024 19:35 EDT Glucose Level 91 mg/dL 04/27/2024 19:35 EDT Creatinine Level 0.76 mg/dL 04/27/2024 19:35 EDT eGFR AA 94 04/27/2024 19:35 EDT eGFR Non-AA 94 04/27/2024 19:35 EDT Calcium Level 9.0 mg/dL 04/27/2024 19:35 EDT Protein Total 7.6 g/dL 04/27/2024 19:35 EDT Albumin Level 3.9 g/dL 04/27/2024 19:35 EDT Bilirubin Total 0.4 mg/dL 04/27/2024 19:35 EDT Troponin-I <5.0 pg/mL 04/27/2024 19:35 EDT Patient/Sanding Supervisor Signature Patient Name:KANDACEHeathBERNIE I have received this information and my questions have been answered. Patient/Sanding Supervisor Name: Patient/Sanding Supervisor Signature: Relationship to Patient: Witness Name/Signature: Date: Electronically Signed on: 04/27/2024 20:38 EDTSigned by:CASSANDRA Emergency department Note * Millie Junior: PERFORM Event Display: ED Notes Authored Date: [id number] Patient Care team information Care Team Personnel Name: Robert Toussaint MD Position: Physician Member Role: Informed Provider Address: Address: [address] [place] [id number] [place] Care Team Related Persons Name: VANESSA BROWN Address: Home [address] [place], [place] [id number] Name: NIRMAL AMBROSE Address: Home [address] [facility] [id number] Name: RON CARTER Address: Home [address] [facility] [facility] [address] [place], [place] [id number] Name: RON CARTER Address: Home [address] [place], [place] [id number]
--- OUTSIDE RECORDS SUMMARY | 2024-05-20 00:21 | XMS_ITS | Encounter Summary ---
Author Organization Formerly [facility] [place] [address] Care Team Providers Care Contact Lens Blocker And Cutter Name Role Phone Kris Vang DO Primary Care Provider [phone] Encounter Details Date Type Department Care Team (Latest Contact Info) Description 08/06/2021 12:48 PM EDT - 08/06/2021 11:59 PM EDT Hospital En[place] [address] Vicki Garcia MD [facility] [place] [address] Abnormal finding on breast imaging Discharge Disposition: Home Social History Tobacco Use Types Packs/Day Years [...] Scheduled View Only Obstetrics [place] [address] Nurse, Theresa EATON, MARIA L 08/03/2024 11:00 AM EDT Office Visit Obstetrics [place] [address] Elvia Renee MD [facility] [place] [address] documented as of this encounter Procedures Procedure Name Priority Date/Time Associated Diagnosis Comments MAMMO BREAST US LIMITED BILATERAL Routine 08/06/2021 1:41 PM EDT Abnormal finding on breast imaging documented in this encounter Results * US Breast Limited Bilat (08/06/2021 1:41 PM EDT) Anatomical Region Laterality Modality Breast Bilateral Mammography Narrative 08/06/2021 2:51 PM EDT DIAGNOSTIC MAMMOGRAPHY AND ULTRASOUND OF THE BILATERAL BREASTS CLINICAL HISTORY: 12 month f/u, 2 yr stablilty. ?? TECHNIQUE AND VIEWS OBTAINED: Images acquired with direct digital capture Bilateral CC and MLO views. ??Tomographic imaging was performed. High-resolution ultrasound was performed of the left upper outer quadrant and right upper outer quadrant by the technologist. COMPARISONS: Multiple breast mammograms and ultrasounds dating back to at least 02/05/2019 BREAST DENSITY: The breasts are extremely dense, which lowers the sensitivity of mammography FINDINGS: MAMMOGRAM: There are no suspicious microcalcifications, masses, or areas of distortion. The pattern is stable. ULTRASOUND: Again seen is an approximately 1.3 cm sonographically benign-appearing right breast mass within the upper outer quadrant, 10:30 radian 7 cm from the nipple. The mass remains hypoechoic, not parallel in orientation, circumscribed with lobular margins and mild posterior acoustic enhancement, and is stable in size and appearance dating back to breast ultrasound 07/14/2019. The known 0.8 cm mass within the left breast, upper-outer quadrant, 4:00 radian 4 cm from the nipple remains benign in sonographic appearance, oval in shape with not parallel orientation, circumscribed lobular margins and mild posterior acoustic enhancement. This is also stable in size and appearance dating back to breast ultrasound 07/14/2019. No no new mass or suspicious sonographic abnormalities are identified. DIAGNOSTIC SUMMARY: Benign-appearing small fibroadenomas within the right breast 10:30 radian 7 cm from the nipple and in the left breast 4:00 radian 4 cm from the nipple. Both are stable in size and sonographic appearance over 24 months dating back to breast ultrasound 07/14/2019. RECOMMENDATION: Annual mammographic screening. BI-RADS Category 2: Benign Findings. * ??Regular screening mammograms starting between age 40 and 50 reduces the risk of from breast cancer. * ??All screening tests have both risks and benefits. These risks and benefits should be assessed for each individual patient through discussion with their provider to determine their preferred breast cancer screening schedule. * ??Women should report any breast changes to a health care provider right away. * ??Some women, because of their family history, a genetic tendency, or other factors, should be screened with annual breast MRI as well as with mammograms. (The number of women who fall into this category is very small). Patients and health care providers should discuss each patients history to decide if earlier screening and/or breast MRI are appropriate. * ??Screening should continue as long as a woman is in good health and is expected to live 10 years or longer. * ??Screening mammography may not detect 10-15% of breast cancers. I have personally reviewed the image(s) and the resident's interpretation and agree with the findings, Vicki Garcia MD at 08/06/2021 2:51 PM Thank you for letting us participate in the care of this patient. ??If you are a health care provider and have any questions regarding this report, please contact the number below. ??For patients who have questions please contact the health care transition manager that requested your imaging first. ? Vicki Garcia MD IMG MAMMO ORDERABL ES documented in this encounter Visit Diagnoses Diagnosis Abnormal finding on breast imaging Other (abnormal) findings on radiological examination of breast documented in this encounter Care Teams Contact Lens Blocker And Cutter Relationship Specialty Start Date End Date Kris Vang DO [address] [place] [address] [place] [address] PCP - General General Internal Medicine 07/30/1902/24 documented as of this encounter
--- OUTSIDE RECORDS SUMMARY | 2024-05-20 00:21 | XMS_ITS | Encounter Summary ---
Author Organization Formerly [facility] [place] [address] Care Team Providers Care Veterinary Technologist Name Role Phone Kris Vang DO Primary Care Provider [phone] Encounter Details Date Type Department Care Team (Latest Contact Info) Description 08/06/2021 12:42 PM EDT - 08/06/2021 12:47 PM EDT Hospital Encounter [place] [address] Vicki Garcia MD [facility] [place]ST[place] [address] Abnormal finding on breast imaging Discharge Disposition: [...] Scheduled View Only Obstetrics [place] [address] Nurse, Theresa EATON, MARIA L 08/03/2024 11:00 AM EDT Office Visit Obstetrics [place] [address] Elvia Renee MD [facility] [place] [address] documented as of this encounter Procedures Procedure Name Priority Date/Time Associated Diagnosis Comments MAMMO DIAGNOSTIC CAD AND SHAWN BILATERAL Routine 08/06/2021 1:15 PM EDT Abnormal finding on breast imaging documented in this encounter Results * Mammo Diagnostic CAD and Shawn Bilateral (08/06/2021 1:15 PM EDT) Anatomical Region Laterality Modality Breast [...] who have questions please contact the health healthcare prof that requested your imaging first. ? Electronically signed by: Vicki Garcia MD, [facility] ([phone]), at 08/06/2021 2:51 PM Vicki Garcia MD IMG MAMMO ORDERABL ES documented in this encounter Visit Diagnoses Diagnosis Abnormal finding on breast imaging Other (abnormal) findings on radiological examination of breast documented in this encounter Care Teams Veterinary Technologist Relationship Specialty Start Date End Date Kris Vang DO [address] [place] [address] [place] [address] PCP - General General Internal Medicine 07/30/1902/24 documented as of this encounter
--- OUTSIDE RECORDS SUMMARY | 2024-05-20 00:21 | XMS_ITS | Continuity of Care Document ---
Author Organization [facility] Address [address] [place] [address] Care Team Providers Care Clean Room Assembler Name Role Phone Robert Toussaint Primary Care Physician [phone] Encounter [facility]_[place] Date(s): 01/12/24 - 01/12/[address] [address] Discharge Disposition: Home or Self Care Attending Physician: Robert Toussaint MD Admitting Physician: Robert Toussaint MD Referring Physician: Robert Toussaint MD Allergies, Adverse Reactions, Alerts No Known Medication Allergies Assessment and Plan Future Appointments Diagnostic Tests Pending * CCP Abs, IgG, S CHING 01/12/24 * Anti DNA (Double Strand) [facility] 01/12/24 Future Scheduled Tests Laboratory* TSH w/ Rflx to Free T4 04/06/24 Immunizations Given and Recorded Vaccine Date Status [...] virus vaccine, inactivated 08/14/09 Braden rded Novel [id number], all formulation 08/22/09 Recorded tetanus/diphth/pertuss (Tdap) adult/adol 08/20/08 Recorded measles/mumps/rubella virus vaccine 03/05/04 Recor ded varicella virus vaccine 03/05/04 Recorded Medications amLODIPine 2.5 mg oral tablet 1 tab, Oral, Daily, # 30 tab, 11 Refill(s), Pharmacy: [facility] #[id number] Start Date: 04/30/23 Status: Ordered ibuprofen 200 mg oral tablet 400 mg = 2 tab, Oral, every 4 hr, PRN as needed for pain, # 120 tab, 0 Refill(s) Start Date: 01/12/24 Status: Ordered levothyroxine 50 mcg (0.05 mg) oral tablet 50 mcg = 1 tab, Oral, Daily, # 90 tab, 3 Refill(s), Pharmacy: [facility]58 Start Date: 07/11/23 Status: Ordered Tylenol PM 0 Refill(s) Start Date: 01/12/24 Status: Ordered Vagifem 10 mcg vaginal tablet 10 mcg = 1 tab, VAG, every night at bedtime, Use nightly at bedtime x 14 days, then twice weekly., # 18 tab, 4 Refill(s), Pharmacy: [facility] #58 Start Date: 05/19/23 Status: Ordered Problem List Condition Confirmation Course [...] Laboratory List Name Date Basic Metabolic Panel (BMP) 01/12/24 C-Reactive Protein (CRP) 01/12/24 Sedimentation Rate (ESR) 01/12/24 Rheumatoid Factor [facility] 01/12/24 Most recent to oldest [Reference Range]: 1 BUN [7-18 mg/dL] 17 mg/dL (01/12/24 4:54 PM) Glucose Level [74-106 mg/dL] 95 mg/dL (01/12/24 4:54 PM) Potassium Level [3.5-5.1 mmol/L] 3.7 mmo l/L (01/12/24 4:54 PM) CRP [<=10.0 mg/L] 3.1 mg/L (01/12/24 4:54 PM) Sodium Level [136-145 mmol/L] 137 mmol/L (01/12/24 4:54 PM) Calcium Level [8.5-10.1 mg/dL] 9.3 mg/dL (01/12/24 4:54 PM) CO2 [21-32 mmol/L] 27 mmol/L (01/12/24 4:54 PM) eGFR Non-AA [>=60] 96 (01/12/24 4:54 PM) eGFR AA [>=60] 96 (01/12/24 4:54 PM) Chloride Level [98-107 mmol/L] 102 mmol/ L (01/12/24 4:54 PM) Creatinine Level [0.55-1.02 mg/dL] 0.75 mg/dL (01/12/24 4:54 PM) Rheumatoid Factor [facility] [<12.0 IntlUnit/mL ] <8.6 IntlUnit/mL 1 *NA* (01/12/24 4:54 PM) ESR, Westergren [0-30 mm/hr] 9 mm/hr (01/12/24 4:54 PM) 1Result Comment: Test performed or referred by The [address] [address] Social History Social History Type Response Tobacco Never tobacco user T obacco Use:. Sex Female Patient Care team information Care Team Personnel Name: Robert Toussaint MD Position: Physician Member Role: Informed Provider Address: Address: [address] [place] [address]- Care Team Related Persons Name: VANESSA BROWN Address: Home [address] [place], [place] [id number] Name: NIRMAL AMBROSE Address: Home [address] [facility] [id number]
--- OUTSIDE RECORDS SUMMARY | 2024-05-20 00:21 | XMS_ITS | Encounter Summary ---
[place] [address] Care Team Providers Care Laborer Brooder Farm Name Role Phone Robert Toussaint MD Primary Care Provider [phone] Reason for Referral * Consultation (Routine) - Duplicate Referral Specialty Diagnoses / Procedures Referred By Contac t Referred To Contact Obstetrics and Gynecology Diagnoses Stress incontinence, female Urogyn Robert Toussaint MD [address] [place] [address] [facility] Power Brake Operator [address] [place] [address] Referral ID Status Reason Start Date Expiration Date Visits Requested Visits Authorized [id number] Duplicate Referral Consult, Test & Treat PCP Updated and/or Approved 04/12/2024 04/12/2025 6 6 Encounter Details Date Type Department Care Team (Latest Contact Info) Description 04/12/2024 Transcribe Orders eDH Incoming Referrals [phone] Robert Toussaint MD [address] [place] [phone] Stress incontinence, female Social History Tobacco Use Types Packs/Day Years [...] Scheduled View Only Obstetrics [place] [address] Nurse, Theresa EATON RN 08/03/2024 11:00 AM EDT Office Visit Obstetrics [place] [address] Elvia Renee MD [facility] [place] [address] Scheduled Referrals Name Type Priority Associated Diagnoses Orde r Schedule Referral to Ob-[facility] Picking Machine Operator Outpatient Referral Routine Stress incontinence, female Ordered: 04/12/2024 documented as of this encounter Visit Diagnoses Diagnosis Stress incontinence, female Female stress incontinence documented in this encounter Care Teams Laborer Brooder Farm Relationship Specialty Start Date End Date Robert Toussaint MD [address] [place] [address] [place] [address] PCP - General Family Medicine 03/15/24 documented as of this encounter
--- OUTSIDE RECORDS SUMMARY | 2024-05-20 00:21 | XMS_ITS | Encounter Summary ---
Author Organization [facility] [place] [address] Care Team Providers Care Ultrasound Supervisor Name Role Phone Kris Vang DO Primary Care Provider [phone] Encounter Details Date Type Department Care Team (Latest Contact Info) Description 08/30/2023 Travel Social History Tobacco Use Types Packs/Day [...] Scheduled View Only Obstetrics [place] [address] Nurse, Theresa EATON RN 08/03/2024 11:00 AM EDT Office Visit Obstetrics [place] [address] Elvia Renee MD [facility] [place] [address] documented as of this encounter Visit Diagnoses Not on filedocumented in this encounter Care Teams Ultrasound Supervisor Relationship Specialty Start Date End Date Kris Vang DO [address] [place] [address] [place] [address] PCP - General General Internal Medicine 07/30/1902/24 documented as of this encounter
--- OUTSIDE RECORDS SUMMARY | 2024-05-20 00:21 | XMS_ITS | Continuity of Care Document ---
Author Organization [facility] Address [address] [place] [address] Care Team Providers Care Shaker Repairer Name Role Phone Kris Vang Primary Care Physician [facility] Date[facility]s): 07/26/22 - 07/26/[address] [address] Encounter Diagnosis Screening for malignant neoplasm of colon(Discharge Diagnosis) - 07/26/22 Discharge Disposition: Home Attending Physician: Fabricio Brooks MD Admitting Physician: Fabricio Brooks MD Referring Physician: Kris Vang DO Allergies, Adverse Reactions, Alerts No Known Medication Allergies Assessment and Plan Future Appointments Functional Status 07/26/22 ADLs Independent Family Member Travel History No recent t ravel Recent Travel History No recent travel Other exposure to Infectious Disease Non e Immunizations Given and Recorded Vaccine Date Status [...] virus vaccine, inactivated 08/14/09 Braden rded Novel [id number], all formulation 08/22/09 Recorded tetanus/diphth/pertuss (Tdap) adult/adol 08/20/08 Recorded measles/mumps/rubella virus vaccine 03/05/04 Recor ded varicella virus vaccine 03/05/04 Recorded Medications SHIPPING FEE NON URGENT SHIPPING FEE NON URGENT, VTDOHTB MED SHIPPING Start Date: 05/13/22 Status: Ordered VT RIFAMPIN 300MG CAP VT RIFAMPIN 300MG CAP, See Instructions, TAKE 2 CAPSULES BY MOUTH DAILY Start Date: 05/13/22 Status: Ordered Problem List Condition Effective Dates Status Health Status Inform ant Genuine stress incontinence(Confirmed) Active On examination - breast lump -upper out-quad(Confirmed) Active Lateral epicondylitis(Confirmed) Active Lipoma of back(Confirmed) 09/22/19 Active Melanocytic nevus(Confirmed) Active Migraine(Confirmed) Active Spasmodic torticollis(Confirmed) Active Verruca plantaris(Confirmed) Active Procedures Procedure Date Related Diagnosis Body Site Status Eye surgery 05/02/22 Completed Excision of lipoma 09/30/19 Comple codi Procedure on knee 1 08/26/19 Compl eted PAP test date 2 01/13/19 Completed Partial meniscectomy of knee 12/22/12 Completed Tubal ligation 10/26/95 Completed 1Left knee 2Pap Due - 12/2023 08/20/08 - WNL; 08/27/10 - WNL/Neg; 10/13/15 - ASCUS/Neg; 01/14/19 - Neg/Neg Vital Signs Most recent to oldest [Reference Range]: 1 2 3 Temperature Oral [35.8-37.3 Deg C] 36.7 Deg C (07/26/22 11:11 AM) Temperature Temporal Artery [36-38 Deg C] 35.9 Deg C *LOW* (07/26/22 1:26 PM) 36.2 Deg C (07/26/22 12:59 PM) Temperature Temporal Artery (DegF) [97.3-100 Deg F] 96.62 Deg F *LOW* (07/26/22 1:26 PM) 97.16 Deg F *LOW* (07/26/22 12:59 PM) Peripheral Pulse Rate [60-100 bpm] 77 bpm (07/26/22 1:26 PM) 78 bpm (07/26/22 1:18 PM) 73 bpm (07/26/22 1:06 PM) Heart Rate Monitored [60-100 bpm] 81 bpm (07/26/22 1:26 PM) 78 bpm (07/26/22 1:18 PM) 74 bpm (07/26/22 1:06 PM) Respiratory Rate [12-24 br/min] 12 br/min (07/26/22 1:26 PM) 13 br/min (07/26/22 1:18 PM) 10 br/min *LOW* (07/26/22 1:06 PM) Blood Pressure [90-140/60-90 mmHg] 105/80mmHg (07/26/22 1:26 PM) 110/79mmHg (07/26/22 1:18 PM) 105/72mmHg (07/26/22 1:06 PM) Mean Arterial Pressure, Cuff [65-140 mmHg] 88 mmHg (07/26/22 1:26 PM) 89 mmHg (07/26/22 1:18 PM) 83 mmHg (07/26/22 1:06 PM) Blood Pressure Location Left arm (07/26/22 11:11 AM) Blood Pressure Method Automatic (07/26/22 11:11 AM) Weight 76.4 kg (07/26/22 11:11 AM) Height 160 cm (07/26/22 11:11 AM) Social History Social History Type Response Tobacco Never tobacco user T obacco Use:. Sex Female Hospital Discharge Instructions Patient Education 07/26/2022 11:58:13 ss colonoscopy discharge instructions (CUSTOM) Normal colonoscopy. Bowel prep was excellent. Next screening in ten years. COLONOSCOPY / SIGMOIDOSCOPY Following day: Return to full activity, including work. Diet: Eat and drink normally, unless instructed otherwise. Treatment for common after affects: Mild abdominal pain, bloating, or excessive gas: Rest, eat lightly and use a heating pad. Symptoms to watch for and report to your physician: SEVERE abdominal pain or bloating. Fever within 24 hours after procedure. A large amount of rectal bleeding. (A small amount of blood from the rectum is not serious, especially if hemorrhoids are present.) If a polyp has been removed- for the next seven days: Do not take aspirin. If you did NOT stop taking aspirin before your procedure, continue taking it even if you???ve had a polyp removed. If bright red rectal bleeding occurs, call your physician. If you have had a Colonoscopy: Do not attempt to drive a vehicle or operate power equipment of any kind for at least 24 hours after discharge from the hospital. Do not consume alcoholic beverages or other mood-altering drugs on the day of surgery. Mild irritation at needle site: Apply warm, moist pack to area for 20 minutes four times a day for 2-3 days. Call physician if persistent redness and/or drainage at needle site. In the event of any problems after surgery, do not hesitate to contact your doctor, [facility] , or the Emergency Room at [phone]. Diagnosis: Doctor: Follow Up Appointment: Follow Up Care 06/14/2022 10:43:26 With:Fabricio Brooks MD Address: [address] [address]- When: Unknown Comments:Screening??colonoscopy in??10 years. Patient Care team information Personnel Name: Kris Vang DO Address: Address: [address] [place] [address]- [place]
--- OUTSIDE RECORDS SUMMARY | 2024-05-20 00:21 | XMS_ITS | Encounter Summary ---
[place] [address] Care Team Providers Care Dinkey Brakeman Name Role Phone Robert Toussaint MD Primary Care Provider [phone] Reason for Referral * Consultation (Routine) - Authorized Specialty Diagnoses / Procedures Referred By Contac t Referred To Contact Obstetrics and Gynecology Diagnoses Stress incontinence (female) (male) Robert Toussaint MD [address] [place] [address] [facility] Bus Repair Supervisor [address] [place] [address] Referral ID Status Reason Start Date Expiration Date Visits Requested Visits Authorized [id number] Authorized Consult, Test & Treat 02/23/2024 02/22/2025 6 6 Encounter Details Date Type Department Care Team (Latest Contact Info) Description 03/15/2024 Transcribe Orders eDH Incoming Referrals [phone] Robert Toussaint MD [address] [place] [phone] Stress incontinence (female) (male) Social History Tobacco Use Types Packs/Day Years [...] Scheduled View Only Obstetrics [place] [address] Nurse, Theresa EATON RN 08/03/2024 11:00 AM EDT Office Visit Obstetrics [place] [address] Elvia Renee MD [facility] [place] [address] Scheduled Referrals Name Type Priority Associated Diagnoses Orde r Schedule Referral to Urology Outpatient Referral Routine Stress incontinence (female) (male) Ordered: 03/15/2024 documented as of this encounter Visit Diagnoses Diagnosis Stress incontinence (female) (male) documented in this encounter Care Teams Dinkey Brakeman Relationship Specialty Start Date End Date Robert Toussaint MD [address] [place] [address] [place] [address] PCP - General Family Medicine 03/15/24 documented as of this encounter
--- OUTSIDE RECORDS SUMMARY | 2024-05-20 00:21 | XMS_ITS | Continuity of Care Document ---
Author Organization [facility] Address [address] [place] [address] Care Team Providers Care Musical Engineer Name Role Phone Robert Toussaint Primary Care Physician [phone] Encounter [facility]_[place] Date(s): 04/19/24 - 04/19/[address] [address] [place] Encounter Diagnosis Lipoma of right lower extremity(Discharge Diagnosis) - 04/19/24 Benign lipomatous neoplasm of skin and subcutaneous tissue of trunk(Final) - Discharge Disposition: Home or Self Care Attending Physician: Fabricio Brooks MD Admitting Physician: Fabricio Brooks MD Referring Physician: Fabricio Brooks MD Allergies, Adverse Reactions, Alerts No Known Medication Allergies Assessment and Plan Future Appointments Diagnostic Tests Pending * Surgical Pathology [facility] 04/19/24 Future Scheduled Tests Laboratory* Thyroid Stimulating Hormone 04/07/24 * TSH w/ Rflx to Free T4 07/07/24 * TSH w/ Rflx to Free T4 07/07/24 Functional Status 04/19/24 Family Member Travel History No recent t [...] virus vaccine, inactivated 08/14/09 Braden rded Novel Clzspcwlm-[id number], all formulation 08/22/09 Recorded tetanus/diphth/pertuss (Tdap) adult/adol 08/20/08 Recorded measles/mumps/rubella virus vaccine 03/05/04 Recor ded varicella virus vaccine 03/05/04 Recorded Medications amLODIPine 2.5 mg oral tablet 1 tab, Oral, Daily, # 30 tab, 11 Refill(s), Pharmacy: [facility]58 Start Date: 04/30/23 Status: Ordered amoxicillin 500 mg oral capsule 500 mg = 1 cap, Oral, BID, # 14 cap, 0 Refill(s), Pharmacy: [facility] #58, 160.6, cm, 01/26/24 15:11:00 EDT, Height, 81.15, kg, 01/26/24 15:21:00 EDT, Weight Dosing Start Date: 01/28/24 Stop Date: 02/04/24 Status: Ordered estradiol 10 mcg vaginal tablet 10 mcg = 1 tab, Vaginal, Sun/Thurs, # 26 tab, 4 Refill(s), Pharmacy: [facility]58, 158.75, cm, 07/10/23 15:34:00 EDT, Height, [...] Daily, # 90 tab, 3 Refill(s), Pharmacy: [facility] #58, 160.6, cm, 01/26/24 15:11:00 EDT, Height, [...] oldest [Reference Range]: 1 2 3 Temperature Temporal Artery [36-38 Deg C] 36.2 Deg C (04/19/24 9:45 AM) 36.2 Deg C (04/19/24 9:05 AM) 36.1 Deg C (04/19/24 8:49 AM) Temperature Temporal Artery (DegF) [97.3-100 Deg F] 97.16 Deg F *LOW* (04/19/24 9:45 AM) 97.16 Deg F *LOW* (04/19/24 9:05 AM) 96.98 Deg F *LOW* (04/19/24 8:49 AM) Peripheral Pulse Rate [60-100 bpm] 70 bpm (04/19/24 9:45 AM) 73 bpm (04/19/24 9:30 AM) 69 bpm (04/19/24 9:20 AM) Heart Rate Monitored [60-100 bpm] 71 bpm (04/19/24 9:45 AM) 76 bpm (04/19/24 9:30 AM) 70 bpm (04/19/24 9:20 AM) Respiratory Rate [12-24 br/min] 13 br/min (04/19/24 9:45 AM) 17 br/min (04/19/24 9:30 AM) 12 br/min (04/19/24 9:20 AM) Blood Pressure [90-140/60-90 mmHg] 139/91mmHg (04/19/24 9:45 AM) 128/84mmHg (04/19/24 9:30 AM) 104/61mmHg (04/19/24 9:20 AM) Mean Arterial Pressure, Cuff [65-140 mmHg] 107 mmHg (04/19/24 9:45 AM) 99 mmHg (04/19/24 9:30 AM) 75 mmHg (04/19/24 9:20 AM) Mean Arterial Pressure Cuff 106 mmHg (04/19/24 7:20 AM) Blood Pressure Location Left arm (04/19/24 7:20 AM) Weight 80.8 kg (04/19/24 7:20 AM) Weight Dosing 80.800 kg (04/19/24 7:20 AM) Height 162 cm (04/19/24 7:20 AM) Height/Length Measured (inches) 63.78 inch (04/19/24 7:20 AM) Social History Social History Type Response Tobacco Never tobacco user T obacco Use:. Sex Female Hospital Discharge Instructions Patient Education 04/19/2024 07:55:26 MK Postop Discharge - generic GLUE (NCMKELLEY) (NCMKELLEY) POST- OPERATIVE DISCHARGE INSTRUCTIONS [facility] in about 2-3 weeks. Please call [phone] to schedule/confirm appointment. Wound Care No Dressing required. You may shower. Skin glue will fall off naturally approximately 2 weeks. No tub baths or swimming for 14 days. Report to your physician any leakage of pus from the incision or increased redness or swelling around the incision. Activity Avoid strenuous exercise for approximately 1 week. Diet Advance diet as tolerated. Pain Control/Medications Take over the counter pain medication for pain control (acetaminophen AND ibuprofen can be taken simultaneously). If you need additional medication for pain control, please call the office. Ice packs to incisions for 20 minutes every hour as needed. Miscellaneous Report any fever >101?? F. Report any problems with urination to your physician. For mild irritation at IV site: a. Apply warm, moist pack to area for 20 minutes four times a day for 2-3 days. b. Call doctor for persistent redness and/or drainage at IV site. In the event of any problems after surgery, do not hesitate to contact your doctor, [facility] , or the Emergency Room at [phone]. Discharge instructions * Prema Capps RN: PERFORM Event Display: Discharge Instructions Authored Date: [id number] BERNIE AMBROSE :1970 Age:54 years Sex:Female Visit Date:04/19/2024 Primary Care Physician: Robert Toussaint MD Hospital Discharge Instructions We would like to thank you for allowing us to assist you with your healthcare needs. The following includes patient education materials and information regarding your injury/illness. Your Next Steps Scheduled Future Appointments Friday 8:00 AM EDT ?? With: Fabricio Brooks MD Where: [facility] [address] [place] [address] Status: Confirmed Friday 8:30 AM EDT ?? With: Tania Aguirre CNM Where: [facility] [address], [address] [place] [address] Status: Confirmed Medications What How Much When Why Instructions [...] tab Oral (given by mouth) Every day Your Summary Your Care Team Admitting Physician - Fabricio Brooks MD Attending Physician - Fabricio Brooks MD Primary Care Physician - Robert Toussaint MD Referring Physician - Fabricio Brooks MD Education Materials POST- OPERATIVE DISCHARGE INSTRUCTIONS Follow-[facility] in the [facility] office in about 2-3 weeks. Please call [phone] to schedule/confirm appointment. ? Wound Care No Dressing required. You may shower. Skin glue will fall off naturally approximately 2 weeks. No tub baths or swimming for 14 days. Report to your physician any leakage of pus from the incision or increased redness or swelling around the incision. ? Activity Avoid strenuous exercise for approximately 1 week. Diet Advance diet as tolerated. ? Pain Control/Medications Take over the counter pain medication for pain control (acetaminophen AND ibuprofen can be taken simultaneously). If you need additional medication for pain control, please call the office. Ice packs to incisions for 20 minutes every hour as needed. ? Miscellaneous Report any fever >101?? F. Report any problems with urination to your physician. For mild irritation at IV site: a. Apply warm, moist pack to area for 20 minutes four times a day for 2-3 days. b. Call doctor for persistent redness and/or drainage at IV site. In the event of any problems after surgery, do not hesitate to contact your doctor, [facility] , or the Emergency Room at [phone]. Patient/Venetian Blind Maker Signature Patient Name:BERNIE AMBROSE I have received this information and my questions have been answered. Patient/Venetian Blind Maker Name: Patient/Venetian Blind Maker Signature: Relationship to Patient: Witness Name/Signature: Date: Electronically Signed on: 04/19/2024 08:57 EDTSigned by:RON History and physical note * Fabricio Brooks MD: PERFORM Event Display: History and Physical Authored Date: [id number] BERNIE AMBROSE Juice :1970 Age:54 years Sex:Female Visit Date:04/19/2024 Primary Care Physician: Robert Toussaint MD History of Present Illness 53 yo F presents today for excision of a right hip lipomatous lesion. ?? Present for about 15 years. Has??received two cortisone injections into right hip,??unclear if related to the lipoma, but??reports first injection helped but the second injection 6 months ago did notimprove pain. ?? No longer interested in getting injections. ?? She had a lipoma removed from her back. ?? No significant changes to PMH/PSH since most recent visit. ? Review of Systems A complete 12 point ROS was obtained and negative except for those mentioned in the HPI.? Physical Exam General: NAD, A+O x4 ?? Pulm: Non-labored breathing pattern ?? Cardio: RRR ?? Abdominal: Soft, NT, ND ?? R forehead skin lesion 2mm dm exophytic in lesion with central ulceration?? R hip: R lateral hip with subcutaneously lesion along IT band 3cm in size likely lipoma.? Assessment/Plan ?? Lipoma of R hip??[id number] ?? Presents today for excision of a right hip lipomatous lesion. We have discussed the brief natural hx of lipomas and options for management.??Pt has elected to proceed with surgical excision of R hip lipomatous lesion with anesthesia.? Risk, benefits and alternatives to the procedure were discussed with the patient in detail. Risk, including but not limited to, recurrent lipoma, bleeding, infection, need to reoperate, failure to resolve symptoms and pain were discussed with the patient who understood these risks and requested to proceed as planned.? Answered all questions. Patient understood and agreed to this plan. I have reviewed the EMR, including records from PCP, specialists along with review of imaging/diagnostics, which were discussed with the patient where applicable to current presentation. ?? Assistance with documentation for this note was provided by??Ron Harris??electromedical equipment repairer, with oversight by Fabricio Brooks MD. Electronically Signed on 04/19/2024 08:07 EDT Fabricio Brooks MD Podiatry Consult note * Melina Palafox: PERFORM Event Display: Podiatry Consultation Authored Date: Patient Care team information Care Team Personnel Name: Robert Toussaint MD Position: Physician Member Role: Informed Provider Address: Address: [address] [place] [address] Care Team Related Persons Name: VANESSA BROWN Address: Home [address] [place], [place] [id number] Name: NIRMAL AMBROSE Address: [address] [facility] [id number] Name: RON CARTER Address: [address] [id number]
--- OUTSIDE RECORDS SUMMARY | 2024-05-20 00:21 | XMS_ITS | Encounter Summary ---
Author Organization [facility] [place] [address] Care Team Providers Care Leading Firefighter Name Role Phone Kris Vang Primary Care Provider [phone] Encounter Details Date Type Department Care Team (Latest Contact Info) Description 09/05/2023 10:49 AM EST - 09/05/2023 11:59 PM [facility] Hospital Encounter Mammography/[place] [address] Tania Josue, [facility] [address] [place] [address] [place] [address] Encounter for screening mammogram for malignant neoplasm of breast Discharge Disposition: Home Social History Tobacco Use [...] Scheduled View Only Obstetrics [place] [address] Nurse, Theresa EATON, MARIA L 08/03/2024 11:00 AM EDT Office Visit Obstetrics [place] [address] Elvia Renee MD [facility] [place] [address] documented as of this encounter Procedures Procedure Name Priority Date/Time Associated Diagnosis Comments MAMMO SCREENING CAD AND SHAWN BILATERAL Routine 09/05/2023 11:22 AM EST Encounter for screening mammogram for malignant neoplasm of breast documented in this encounter Results * Mammo Screening Cad and Shawn Bilateral (09/05/2023 11:22 AM EST) Anatomical Region Laterality Modality Breast Bilateral Mammography Narrative 09/05/2023 11:39 AM EST BILATERAL MAMMOGRAPHY REASON FOR EXAM: Screening TECHNIQUE: CC and MLO views were obtained of each breast using standard 2-D mammography as well as 3-D tomosynthesis. Computer aided detection was used. This is compared with prior images. FINDINGS: The breasts are extremely dense, which lowers the sensitivity of mammography. There are no suspicious microcalcifications, masses, or areas of distortion. The pattern is stable. CONCLUSION: No mammographic evidence of malignancy. RECOMMENDATION: * Regular screening mammograms starting at age 40 reduces the risk of from breast cancer. * Yearly screening provides the most benefit. Women should discuss with their provider their preferred breast cancer screening schedule. * Women should report any breast changes to a health care provider right away. * Some women, because of their family history, a genetic tendency, or other factors, should be screened with annual breast MRI as well as with mammograms. A result letter has been sent to this patient by the [facility]. BIRADS CATEGORY 1: NEGATIVE Electronically signed by: JU ROMERO MD Tania Josue [facility] MAMMO ORDERA BLES documented in this encounter Visit Diagnoses Diagnosis Encounter for screening mammogram for malignant neoplasm of breast Other screening mammogram documented in this encounter Care Teams Leading Firefighter Relationship Specialty Start Date End Date Kris Vang DO [address] [place] [address] [place] [address] PCP - General General Internal Medicine 07/30/1902/24 documented as of this encounter
--- OUTSIDE RECORDS SUMMARY | 2024-05-20 00:21 | XMS_ITS | Encounter Summary ---
Author Organization [facility] Address [facility] [place] [address] Care Team Providers Care Multigraph Operator Name Role Phone Kris Vang Primary Care Provider [phone] Encounter Details Date Type Department Care Team (Late st Contact Info) Description 08/14/2023 Telephone Dermatology at [facility] [address] [place] [id number] Valentina Bonilla MD [facility] DR [address] [address] Social History Tobacco Use Types Packs/Day Years Used Date Smoking Tobacco: Never Smokeless Tobacco: Never Sex and Gender Information Value Date Recorded Sex Assigned at Not on file Gender Identity Not on file Sexual Orientation Not on file documented as of this encounter Miscellaneous Notes * Telephone Encounter - Maryanne Seaman Michael - 08/14/2023 10:42 AM EDT Returned patients call to schedule a follow up. I reminded her that she is not due for an FSE for another year. She then said that she has a spot on her forehead she wants removed and that she went to her pcp for a skin issue. I asked her what the issue was and she stated it is contact dermatitis and they prescribed her something she picked up last night. She was hoping to coordinate an appointment with her mammo and when I said I could not accommodate she said she would just wait a year. She also said if her skin does not clear up she will have her pcp send a referral for the contact derm. documented in this encounter Plan of Treatment Upcoming Encounters Date Type Department Care Team (Late st Contact Info) Description 08/03/2024 10:45 AM EDT Scheduled View Only Obst[place] [address] Nurse, Theresa EATON, RN 08/03/2024 11:00 AM EDT Office Visit Obstetrics [place] [phone] Elvia Renee MD [facility] [place] [address] documented as of this encounter Visit Diagnoses Not on filedocumented in this encounter Care Teams Multigraph Operator Relationship Specialty Start Date End Date Kris Vang DO [address] [place] [address] [place] [address] PCP - General General Internal Medicine 07/30/1902/24 documented as of this encounter
--- OUTSIDE RECORDS SUMMARY | 2024-05-20 00:21 | XMS_ITS | Continuity of Care Document ---
Author Organization [facility] Address [address] [place] [address] Care Team Providers Care Business Machine Mechanic Name Role Phone Robert Toussaint Primary Care Physician [phone] Encounter [facility] Date(s): 06/05/23 - 06/05/[address] [address] Encounter Diagnosis Right hip pain(Discharge Diagnosis) - 06/05/23 Discharge Disposition: Home or Self Care Attending Physician: Stevan Hamilton MD Admitting Physician: Stevan Hamilton MD Referring Physician: Stevan Hamilton MD Allergies, Adverse Reactions, Alerts No Known Medication Allergies Assessment and Plan Future Appointments Future Scheduled Tests Laboratory* TSH w/ Rflx to Free T4 07/10/23 Immunizations Given and Recorded Vaccine Date Status [...] virus vaccine, inactivated 08/14/09 Braden rded Novel [id number], all formulation 08/22/09 Recorded tetanus/diphth/pertuss (Tdap) adult/adol 08/20/08 Recorded measles/mumps/rubella virus vaccine 03/05/04 Recor ded varicella virus vaccine 03/05/04 Recorded Medications amLODIPine 2.5 mg oral tablet 1 tab, Oral, Daily, # 30 tab, 11 Refill(s), Pharmacy: [id number] Start Date: 04/30/23 Status: Ordered levothyroxine 25 mcg (0.025 mg) oral tablet 25 mcg = 1 tab, Oral, Daily, # 90 tab, 3 Refill(s), Pharmacy: [id number] Start Date: 04/09/23 Status: Ordered Vagifem 10 mcg vaginal tablet 10 mcg = 1 tab, VAG, every night at bedtime, Use nightly at bedtime x 14 days, then twice weekly., # 18 tab, 4 Refill(s), Pharmacy: [id number] Start Date: 05/19/23 Status: Ordered Problem List Condition Confirmation Course Effective Dates Status H ealth Status Informant Degenerative disc disease, cervical Confirmed Active Genuine stress incontinence Confirmed Active On examination - breast lump-upper out-quad Confirmed Active Hypothyroidism Confirmed Active Lateral epicondylitis [...] Physician Member Role: Informed Provider Address: Address: [address] [place] [phone] Care Team Related Persons Name: VANESSA BROWN Address: Home [address] [place], [place] [id number] Name: VANESSA BROWN Address: [facility] [address] [address] Address: Home [address] [place], [place] [id number] Name: NIRMAL AMBROSE Address: [address] [id number]
--- OUTSIDE RECORDS SUMMARY | 2024-05-20 00:21 | XMS_ITS | Encounter Summary ---
Author Organization [facility] [place] [address] Care Team Providers Care Heel Compressor Name Role Phone Kris Vang DO Primary Care Provider [phone] Encounter Details Date Type Department Care Team (Latest Contact Info) Description 08/22/2022 12:37 PM EDT - 08/22/2022 11:59 PM EDT Hospital Encounter Mammography[place] [phone] Kris Vang DO [address] [place] [phone] Encounter for screening mammogram for breast cancer Discharge Disposition: Home Social History Tobacco Use [...] Scheduled View Only Obstetrics [place] [address] Nurse, Theresa EATON RN 08/03/2024 11:00 AM EDT Office Visit Obstetrics [place] [address] Elvia Renee MD [facility] [place] [address] documented as of this encounter Procedures Procedure Name Priority Date/Time Associated Diagnosis Comments MAMMO SCREENING CAD AND ANNE BILATERAL Routine 08/22/2022 1:01 PM EDT Encounter for screening mammogram for breast cancer documented in this encounter Results * Mammo Screening Cad and Anne Bilateral (08/22/2022 1:01 PM EDT) Anatomical Region Laterality Modality Breast Bilateral Mammography Narrative 08/23/2022 9:54 AM EDT BILATERAL MAMMOGRAPHY REASON FOR EXAM: Screening TECHNIQUE: [...] CONCLUSION: No mammographic evidence of malignancy. RECOMMENDATION: Regular screening mammograms starting between age 40 and 50 reduces the risk of from breast cancer. All screening tests have both risks and benefits. These risks and benefits should be assessed for each individual patient through discussion with their provider to determine their preferred breast cancer screening schedule. Women should report any breast changes to a health care provider right away. Some women, because of their family history, a genetic tendency, or other factors, should be screened with annual breast MRI as well as with mammograms. (The number of women who fall into this category is very small). Patients and health care providers should discuss each patients history to decide if earlier screening and/or breast MRI are appropriate. Screening should continue as long as a woman is in good health and is expected to live 10 years or longer. Screening mammography may not detect 10-15% of breast cancers. A result letter has been sent to this patient by the [facility]. BIRADS CATEGORY 1: NEGATIVE Electronically signed by: Juanis Luciano MD Kris ELI MAMMO ORDERABLES documented in this encounter Visit Diagnoses Diagnosis Encounter for screening mammogram for breast cancer documented in this encounter Care Teams Heel Compressor Relationship Specialty Start Date End Date Kris Vang DO [address] [place] [address] [place] [address] PCP - General General Internal Medicine 07/30/1902/24 documented as of this encounter
--- OUTSIDE RECORDS SUMMARY | 2024-05-20 00:21 | XMS_ITS | Continuity of Care Document ---
Author Organization [facility] Address [address] [place] [address] Care Team Providers Care Hardware Installer Name Role Phone Robert Toussaint Primary Care Physician [phone] Encounter [facility] Date(s): 02/24/24 - 02/24/[address] [address] Discharge Disposition: Home or Self Care Attending Physician: Fabricio Brooks MD Admitting Physician: Fabricio Brooks MD Referring Physician: Fabricio Brooks MD Allergies, Adverse Reactions, Alerts No Known Medication Allergies Assessment and Plan Future Appointments Diagnostic Tests Pending * Surgical Pathology [facility] 02/24/24 Future Scheduled Tests Laboratory* TSH w/ Rflx [...] virus vaccine, inactivated 08/14/09 Braden rded Novel [id number], all formulation 08/22/09 Recorded tetanus/diphth/pertuss (Tdap) adult/adol 08/20/08 Recorded measles/mumps/rubella virus vaccine 03/05/04 Recor ded varicella virus vaccine 03/05/04 Recorded Medications amLODIPine 2.5 mg oral tablet 1 tab, Oral, Daily, # 30 tab, 11 Refill(s), Pharmacy: [id number] Start Date: 04/30/23 Status: Ordered amoxicillin 500 mg oral capsule 500 mg = 1 cap, Oral, BID, # 14 cap, 0 Refill(s), Pharmacy: [facility], 160.6, cm, 01/26/24 15:11:00 EDT, Height, 81.15, kg, 01/26/24 15:21:00 EDT, Weight Dosing Start Date: 01/28/24 Stop Date: 02/04/24 Status: Ordered estradiol 10 mcg vaginal tablet 10 mcg = 1 tab, Vaginal, Sun/Thurs, # 26 tab, 4 Refill(s), Pharmacy: [facility], 158.75, cm, 07/10/23 15:34:00 EDT, Height, [...] Daily, # 90 tab, 3 Refill(s), Pharmacy: [facility] Start Date: 07/11/23 Status: Ordered Tylenol [...] Physician Member Role: Informed Provider Address: Address: [address] [place] [address] Care Team Related Persons Name: VANESSA BROWN Address: Home [address] [place], [place] [phone] Name: NIRMAL AMBROSE Address: Home [address] [facility] [id number] Name: RON CARTER Address: Home [address] [id number]
--- OUTSIDE RECORDS SUMMARY | 2024-05-20 00:21 | XMS_ITS | Clinical Summary ---
Author Organization [facility] [place] [address] Care Team Providers Care Special Education Tutor Name Role Phone Robert Toussaint MD Primary Care Provider Allergies No known active allergies Medications No known medications Encounters Date Type Department Care Team Description 04/12/2024 Transcribe Orders eDH Incoming Referrals [phone] Robert Toussaint MD Stress incontinence, female 03/15/2024 Transcribe Orders eDH Incoming Referrals [phone] Robert Toussaint MD Stress incontinence (female) (male) from Last 3 Months Family History Medical History Relation Comments Breast Cancer Neg Hx Social History Tobacco Use Types Packs/Day Years Used Date Smoking Tobacco: Never Smokeless Tobacco: Never Sex and Gender Information Value Date Recorded Sex Assigned at Not on file Gender Identity Not on file Sexual Orientation Not on file Plan of Treatment Upcoming Encounters Date Type Department Care Team (Late st Contact Info) Description 08/03/2024 10:45 AM EDT Scheduled View Only Obstetrics [place] [address] Nurse, Theresa EATON, RN 08/03/2024 11:00 AM EDT Office Visit Obstetrics [place] [address] Elvia Renee MD [facility] [address] Health Maintenance Due Date Last Done Comments CT Colonography 1972 Colonoscopy 1972 Colorectal Cancer Screening 1972 FIT DNA 1972 FIT 1972 Sigmoidoscopy (10 year) with FIT yearly 1972 Sigmoidoscopy 1972 HIV screen 1990 Hepatitis C Screening 1990 Hepatitis B vaccine (0-59 yrs) (1) 1991 Tdap adult 1991 Tetanus vaccine 1991 HPV test 2002 PAP Smear 2002 Breast Cancer Share Decision Needed 2012 Zoster vaccine (1 of 2) 2022 Covid-19 Vaccine (3 - 2022-2 4 season) 2023 11/15/2020, 10/19/2020 Influenza (Flu) vaccine (1 o f 1 - Influenza standard series) 06/27/2024 Breast Cancer screening 09/05/2025 09/05/20 23, 08/22/2022, 08/06/2021, Additional history exists Procedures Procedure Name Priority Date/Time Associated Diagnosis Comments MAMMO SCREENING CAD AND SHAWN BILATERAL Routine 09/05/2023 11:22 AM EST Encounter for screening mammogram for malignant neoplasm of breast from Last 3 Months or Most Recently Relevant to Health Maintenance Results * Mammo Screening Cad and Shawn [...] Electronically signed by: JU ROMERO MD Tania Joe Chantale Josue CNM [facility] MAMMO ORDERA BLES from Last 3 Months or Most Recently Relevant to Health Maintenance Care Teams Special Education Tutor Relationship Specialty Start Date End Date Robert Toussaint MD [address] [place] [address] [place] [id number] PCP - General Family Medicine 03/15/24
--- OUTSIDE RECORDS SUMMARY | 2024-05-20 00:21 | XMS_ITS | Continuity of Care Document ---
Author Organization [facility] Address [address] [place] [address] Care Team Providers Care Pool Lifeguard Name Role Phone EFRAÍN DIAZ, GIOVANNI SAUNDERS Primary Care Physician Encounter [facility] [id number] Date(s): 01/13/24 - 01/13/24 [facility] [address] [place] [address] us Patient Care team information Care Team Personnel Name: GIOVANNI KENNY MD Position: No Access Member Role: Primary Care Physician Address: Address: [address] [address]
--- OUTSIDE RECORDS SUMMARY | 2024-05-20 00:21 | XMS_ITS | Encounter Summary ---
Author Organization [facility] [place] [address] Care Team Providers Care Appointment Scheduler Name Role Phone Kris Vang DO Primary Care Provider [phone] Encounter Details Date Type Department Care Team (Late st Contact Info) Description 08/22/2022 10:00 AM EDT Office Visit Dermatology at [facility] [address] [place] [address] Miri Swann MD [facility] [address] [address] Seborrheic keratoses; Multiple nevi; Lentigines; Hernandez angioma; Accessory skin tags; Sebaceous hyperplasia; Dermatofibroma Social History Tobacco Use Types Packs/Day Years Used Date Smoking Tobacco: Never Smokeless Tobacco: Never Sex and Gender Information Value Date Recorded Sex Assigned at Not on file Gender Identity Not on file Sexual Orientation Not on file documented as of this encounter Progress Notes * Miri Swann MD - 08/22/2022 10:00 AM EDT Images from the original note were not included. DEPARTMENT OF DERMATOLOGY Medical Dermatology Clinic Provider: Miri Swann MD Patient's preferred name Carrie Preferred contact method for results [x]Phone []myD-H []Letter Detailed phone message OK? Yes Are there any other people with whom we may discuss your care? Past Medical History Date, location, treatment Melanoma No Dysplastic nevi No SCC No BCC No AKs No UV Exposure & Protection + history of tanning bed use + history of blistering sunburn Other relevant past medical history No Family History Details Melanoma No NMSC No Other relevant family history No Social History Occupation: Hobbies: Other: PRE-PROCEDURE SCREENING Details Allergy to lidocaine, epinephrine, Dermabond, chlorhexidine, or adhesives No Bleeding disorder or blood thinners No Pacemaker, defibrillator, deep brain stimulator, cochlear implant No History of Present Illness: Carrie Cobos is a 52 y.o. Patient is new and self-referred to the clinic for a full skin exam. Patient denies any specific skin concerns today; no lesions that are new, changing or symptomatic. Medications: Reviewed in eD-H Allergies: Reviewed in eD-H Skin Examination: Full skin examination: Patient asked to undress to their comfort level. Verbalized that the provider???s preference is that the patient remove all clothing and that the provider will not examine areas patient elects to keep covered. Patient elects to keep underwear on and have the following examined: scalp, hair, face, ears, neck, chest, axillae, abdomen, back, and upper and lower extremities. Genitalia and buttocks were not examined. Assessment/Plan #. Seborrheic Keratoses - Stuck on, waxy papules on the trunk and extremities. - Discussed benign nature of lesions and provided reassurance. No treatment necessary at this time. #. Benign Nevi - Scattered medium brown, evenly pigmented macules and papules on the trunk and extremities with reassuring pigment pattern on dermoscopy. - Discussed benign nature of lesions and provided reassurance. Will continue to monitor. #. Lentigines - Scattered light-brown, evenly pigmented, well-demarcated macules on sun-exposed areas of the trunk and extremities. - No worrisome pigmented lesions. Discussed benign nature of lesions and provided reassurance. Willcontinue to monitor. #. Hernandez Angiomas - Multiple bright red, well-demarcated papules on the trunk and extremities. - Discussed benign nature of lesions and provided reassurance. No treatment necessary at this time. #. Skin Tags - Sessile, flesh-colored papules on the neck line. - Discussed benign nature of lesions and provided reassurance. No treatment necessary at this time. #. Sebaceous hyperplasia - Yellow papules with crown of vessels and central dell on dermoscopy -advised lesions are benign increase in size of glands and that if bothersome can be treated cosmetically #. Dermatofibroma - Firm papule, centrally raised and sclerotic, with peripheral hyperpigmentation and dimpling with lateral pressure on the left upper arm. - Discussed that these are benign fibrous (scar-like) lesions. No treatment necessary. Other: ??? Sun protection discussed (protective clothing and SPF30+ broad-spectrum sunscreen) RTC: 2 years for a full skin exam. []Note routed to trade show coordinator [x]Recall placed in scheduling system []Appointment scheduled at checkout Scribe attestation: Kerline Mccall [facility] has performed the documentation for this encounter in the presence of and acting as a scribe for Miri Swann MD. I performed the above scribed service and agree with the accuracy of the documentation in this encounter. Reviewed and signed by: Miri Swann MD Dermatology [facility] Staff manufacturing director: Taylor Liang MD Dermatology [facility] * Taylor Liang MD - 08/22/2022 10:00 AM EDT I was the supervising physician working with Dermatology Resident in the dermatology clinic during this patient visit. The level of Resident supervision for this patient visit was indirect supervision with direct supervision immediately available. (definition: [facility] GME Policy Statement on Graduate M edical Education, Supervision of Graduate Medical Trainees) I was immediately available to the Dermatology Resident for questions and discussion regarding this visit. I have reviewed the encounter note details. TAYLOR LIANG MD Staff Physician documented in this encounter Plan of Treatment Upcoming Encounters Date Type Department Care Team (Late st Contact Info) Description 08/03/2024 10:45 AM EDT Scheduled View Only Obstetrics [place] [address] Nurse, Theresa EATON RN 08/03/2024 11:00 AM EDT Office Visit Obstetrics [place] [address] [facility] [place] [address] documented as of this encounter Visit Diagnoses Diagnosis Seborrheic keratoses Multiple nevi Benign neoplasm of skin, site unspecified Lentigines Other dyschromia Hernandez angioma Nevus, non-neoplastic Accessory skin tags Other specified congenital anomaly of skin Sebaceous hyperplasia Other specified disease of sebaceous glands Dermatofibroma Benign neoplasm of skin, site unspecified documented in this encounter Care Teams Appointment Scheduler Relationship Specialty Start Date End Date Kris Vang DO [address] [place] [address] [place] [address] PCP - General General Internal Medicine 07/30/1902/24 documented as of this encounter
--- OUTSIDE RECORDS SUMMARY | 2024-05-20 00:21 | XMS_ITS | Continuity of Care Document ---
Author Organization [facility] Address [address] [place] [address] Care Team Providers Care Nurse Wound Name Role Phone Robert Toussaint Primary Care Physician Encounter NCTY_[place] Date(s): 10/06/23 - 10/06/23 [facility] [address] [place] [address] Discharge Disposition: Home or Self Care Attending Physician: Robert Toussaint MD Admitting Physician: Robert Toussaint MD Referring Physician: Robert Toussaint MD Allergies, Adverse Reactions, Alerts No Known Medication Allergies Assessment and Plan Future Appointments Future Scheduled Tests Laboratory* Basic Metabolic Panel 10/06/23 * TSH w/ Rflx to Free T4 04/06/24 [...] virus vaccine, inactivated 08/14/09 Braden rded Novel [id number], all formulation 08/22/09 Recorded tetanus/diphth/pertuss (Tdap) adult/adol 08/20/08 Recorded measles/mumps/rubella virus vaccine 03/05/04 Recor ded varicella virus vaccine 03/05/04 Recorded Medications amLODIPine 2.5 mg oral tablet 1 tab, Oral, Daily, # 30 tab, 11 Refill(s), Pharmacy: [facility] Start Date: 04/30/23 Status: Ordered levothyroxine 50 mcg (0.05 mg) oral tablet 50 mcg = 1 tab, Oral, Daily, # 90 tab, 3 Refill(s), Pharmacy: [facility] Start Date: 07/11/23 Status: Ordered triamcinolone 0.1% topical cream 1 david, Topical, BID, # 60 g, 0 Refill(s), Pharmacy: [facility] Start Date: 08/13/23 Stop Date: 08/27/23 Status: Ordered Vagifem 10 mcg vaginal tablet 10 mcg = 1 tab, VAG, every night at bedtime, Use nightly at bedtime x 14 days, then twice weekly., # 18 tab, 4 Refill(s), Pharmacy: [facility] Start Date: 05/19/23 Status: Ordered Problem [...] - Neg/Neg Results Laboratory List Name Date Hemoglobin A1c 10/06/23 TSH w/ Rflx to Free T4 10/06/23 Most recent to oldest [Reference Range]: 1 TSH [0.358-3.740 mcIntlUnit/mL] 3.664 mc IntlUnit/mL (10/06/23 7:24 AM) Hemoglobin A1c [4.0-6.0 %] 4.9 % (10/06/23 7:24 AM) Social History Social History Type Response Tobacco Never tobacco user T obacco Use:. Sex Female Patient Care team information Care Team Personnel Name: Robert Toussaint MD Position: Physician Member Role: Informed Provider Address: Address: [address] [place] [address] Care Team Related Persons Name: VANESSA BROWN Address: Home [address] [place], [place] [id number] Name: NIRMAL AMBROSE Address: Home [address] [facility] [id number]
--- OUTSIDE RECORDS SUMMARY | 2024-05-20 00:21 | XMS_ITS | Continuity of Care Document ---
Author Organization [facility] Address [address] [place] [address] Care Team Providers Care Lawn Mower Sharpener Name Role Phone Robert Toussaint Primary Care Physician Encounter [facility]_[place] Date(s): 01/26/24 - 01/26/[address] [address] Discharge Disposition: Home or Self Care Attending Physician: Bob Epperson MD Admitting Physician: Bob Epperson MD Referring Physician: Bob Epperson MD Allergies, Adverse Reactions, Alerts No Known [...] 07/27/12 Braden rded influenza virus vaccine, inactivated 9/15/11 Braden rded influenza virus vaccine, inactivated 07/27/10 Braden rded influenza virus vaccine, inactivated 08/14/09 Braden rded Novel [id number], all formulation 08/22/09 Recorded tetanus/diphth/pertuss (Tdap) adult/adol 08/20/08 Recorded measles/mumps/rubella virus vaccine 03/05/04 Recor ded varicella virus vaccine 03/05/04 Recorded Medications amLODIPine 2.5 mg oral tablet 1 tab, Oral, Daily, # 30 tab, 11 Refill(s), Pharmacy: [facility] Start Date: 04/30/23 Status: Ordered estradiol 10 mcg vaginal tablet 10 mcg = 1 tab, Vaginal, Sun/Thurs, # 26 tab, 4 Refill(s), Pharmacy: [facility], 158.75, cm, 07/10/23 15:34:00 EDT, Height, [...] Daily, # 90 tab, 3 Refill(s), Pharmacy: [facility] Start Date: 07/11/23 Status: Ordered Tylenol [...] - Neg/Neg Results Laboratory List Name Date Urinalysis Microscopic 01/26/24 Urinalysis with Microscopic 01/26/24 Most recent to oldest [Reference Range]: 1 UA Color Yellow (01/26/24 4:40 PM) UA WBC [0-3] 3-5 *ABN* (01/26/24 4:40 PM) UA Urobilinogen Positive *ABN* (01/26/24 4:40 PM) UA Bili [Negative] Negative (01/26/24 4:40 PM) UA Ketones Trace *ABN* (01/26/24 4:40 PM) UA RBC [0-2] 0-2 (01/26/24 4:40 PM) UA Leuk Est Negative (01/26/24 4:40 PM) UA Nitrite Negative (01/26/24 4:40 PM) UA Glucose [Negative] Negative (01/26/24 4:40 PM) UA Bacteria Rare /HPF (01/26/24 4:40 PM) UA Protein Negative (01/26/24 4:40 PM) UA Blood Negative (01/26/24 4:40 PM) UA Mucous Moderate /HPF *ABN* (01/26/24 4:40 PM) UA Spec Grav 1.025 *NA* (01/26/24 4:40 PM) UA Squam Epithelial [None Seen] Few *ABN* (01/26/24 4:40 PM) UA pH 7.0 *NA* (01/26/24 4:40 PM) UA Appear Clear (01/26/24 4:40 PM) UA Culture Ind?. Not Applicable (01/26/24 4:40 PM) Orders for Microbiology Reports Name Date Urine Culture 01/26/24 Microbiology Reports TEST:Urine Culture STATUS:Order in Progress BODY SITE: SOURCE:Urine, Clean Catch COLLECTED DATE/TIME:01/26/24 4:40 PM PRELIMINARY REPORT 10,000 - 100,000 cfu/ml Streptococcus agalactiae (Group B) Susceptibility to follow. Social History Social History Type Response Tobacco Never tobacco user T obacco Use:. Sex Female Patient Care team information Care Team Personnel Name: Robert Toussaint MD Position: Physician Member Role: Informed Provider Address: Address: [address] [place] [address] Care Team Related Persons Name: VANESSA BROWN Address: Home [address] [place], [place] [phone] Name: NIRMAL AMBROSE Address: Home [address] [facility] [id number] Name: RON CARTER Address: Home [address] [facility] [address] [place], [place] [phone] Name: RON CARTER Address: Home [address] [facility] [address] [place] [address]
--- OUTSIDE RECORDS SUMMARY | 2024-05-20 00:21 | XMS_ITS | Continuity of Care Document ---
Author Organization [facility] Address [address] [place] [address] Care Team Providers Care Panel Sewer Name Role Phone Robert Toussaint Primary Care Physician Encounter [facility]_[place] Date(s): 07/10/23 - 07/10/[address] [address] Discharge Disposition: Home or Self Care Attending [...] virus vaccine, inactivated 08/14/09 Braden rded Novel [id number], all formulation 08/22/09 Recorded tetanus/diphth/pertuss (Tdap) adult/adol 08/20/08 Recorded measles/mumps/rubella virus vaccine 03/05/04 Recor ded varicella virus vaccine 03/05/04 Recorded Medications amLODIPine 2.5 mg oral tablet 1 tab, Oral, Daily, # 30 tab, 11 Refill(s), Pharmacy: [facility] Start Date: 04/30/23 Status: Ordered levothyroxine 25 mcg (0.025 mg) oral tablet 25 mcg = 1 tab, Oral, Daily, # 90 tab, 3 Refill(s), Pharmacy: [facility] Start Date: 04/09/23 Status: Ordered Vagifem 10 mcg vaginal tablet 10 mcg = 1 tab, VAG, every night at bedtime, Use nightly at bedtime x 14 days, then twice weekly., # 18 tab, 4 Refill(s), Pharmacy: [facility] Start Date: 05/19/23 Status: Ordered Problem [...] - Neg/Neg Results Laboratory List Name Date Free T4 07/10/23 TSH w/ Rflx to Free T4 07/10/23 Most recent to oldest [Reference Range]: 1 T4 Free [0.76-1.46 ng/dL] 0.76 ng/dL (07/10/23 4:10 PM) TSH [0.358-3.740 mcIntlUnit/mL] 4.091 mc IntlUnit/mL *HI* (07/10/23 4:10 PM) Social History Social History Type Response Tobacco Never tobacco user T obacco Use:. Sex Female Patient Care team information Care Team Personnel Name: Robert Toussaint MD Position: Physician Member Role: Informed Provider Address: Address: [address] [place] [address] Care Team Related Persons Name: VANESSA BROWN Address: Home [address] [place], [place] [phone] Name: VANESSA BROWN Address: [facility] [address] [facility] [address] Address: Home [address] [place], [place] [phone] Name: NIRMAL AMBROSE Address: [address] [phone]
--- OUTSIDE RECORDS SUMMARY | 2024-05-20 00:21 | XMS_ITS | Continuity of Care Document ---
Author Organization [facility] Address [address] [place] [address] Care Team Providers Care Bunch Breaker Name Role Phone Robert Toussaint Primary Care Physician [phone] Encounter [place]_[place] Date(s): 04/06/24 - 04/06/[address] [address] Discharge Disposition: Home or Self Care Attending Physician: Robert Toussaint MD Admitting Physician: Robert Toussaint MD Referring Physician: Robert Toussaint MD Allergies, Adverse Reactions, Alerts No Known Medication Allergies Assessment and Plan Future Appointments Future Scheduled Tests Laboratory* Thyroid [...] 07/28/14 Braden rded influenza virus vaccine, inactivated 10/3/13 Braden rded influenza virus vaccine, inactivated 07/27/12 Braden rded influenza virus vaccine, inactivated 07/11/11 Braden rded influenza virus vaccine, inactivated 07/27/10 Braden rded influenza virus vaccine, inactivated 08/14/09 Braden rded Novel [id number]-[id number], all formulation 08/22/09 Recorded tetanus/diphth/pertuss (Tdap) adult/adol 08/20/08 Recorded measles/mumps/rubella virus vaccine 03/05/04 Recor ded varicella virus vaccine 03/05/04 Recorded Medications amLODIPine 2.5 mg oral tablet 1 tab, Oral, Daily, # 30 tab, 11 Refill(s), Pharmacy: [facility] Start Date: 04/30/23 Status: Ordered amoxicillin 500 mg oral capsule 500 mg = 1 cap, Oral, BID, # 14 cap, 0 Refill(s), Pharmacy: [facility]58, 160.6, cm, 01/26/24 15:11:00 EDT, Height, 81.15, kg, 01/26/24 15:21:00 EDT, Weight Dosing Start Date: 01/28/24 Stop Date: 02/04/24 Status: Ordered estradiol 10 mcg vaginal tablet 10 mcg = 1 tab, Vaginal, Sun/Thurs, # 26 tab, 4 Refill(s), Pharmacy: [facility]58, 158.75, cm, 07/10/23 15:34:00 EDT, Height, [...] Daily, # 90 tab, 3 Refill(s), Pharmacy: [facility]58, 160.6, cm, 01/26/24 15:11:00 EDT, Height, [...] Results Laboratory List Name Date Free T4 04/06/24 TSH w/ Rflx to Free T4 04/06/24 Most recent to oldest [Reference Range]: 1 T4 Free [0.76-1.46 ng/dL] 0.91 ng/dL (04/06/24 7:35 AM) TSH [0.358-3.740 mcIntlUnit/mL] 4.772 mc IntlUnit/mL *HI* (04/06/24 7:35 AM) Social History Social History Type Response Tobacco Never tobacco user T obacco Use:. Sex Female Patient Care team information Care Team Personnel Name: Robert Toussaint MD Position: Physician Member Role: Informed Provider Address: Address: [address] [place] [address] [place], [place] [address] Care Team Related Persons Name: VANESSA BROWN Address: Home [address] [place], [place] [phone] Name: NIRMAL AMBROSE Address: Home [address] [facility] [phone] Name: RON CARTER Address: Home [address] [place] [phone] [place]
--- OUTSIDE RECORDS SUMMARY | 2024-05-20 00:21 | XMS_ITS | Continuity of Care Document ---
Author Organization [facility] Address [address] [place] [address] Care Team Providers Care Document Advisor Name Role Phone Robert Toussaint Primary Care Physician [phone] Encounter [place]Y_[place] Date(s): 04/09/23 - 04/09/[address] [address] Discharge Disposition: Home or Self Care Attending [...] virus vaccine, inactivated 08/14/09 Braden rded Novel [id number], all formulation 08/22/09 Recorded tetanus/diphth/pertuss (Tdap) adult/adol 08/20/08 Recorded measles/mumps/rubella virus vaccine 03/05/04 Recor ded varicella virus vaccine 03/05/04 Recorded Medications amLODIPine 2.5 mg oral tablet 2.5 mg = 1 tab, Oral, Daily, # 30 tab, 2 Refill(s), Pharmacy: [facility] Start Date: 02/03/23 Status: Ordered levothyroxine 25 mcg (0.025 mg) oral tablet 25 mcg = 1 tab, Oral, Daily, # 90 tab, 3 Refill(s), Pharmacy: [facility] Start Date: 04/09/23 Status: Ordered SHIPPING FEE NON URGENT SHIPPING FEE NON [...] - Neg/Neg Results Laboratory List Name Date Folate Level 04/09/23 Free T4 04/09/23 Iron Level and TIBC 04/09/23 TSH w/ Rflx to Free T4 04/09/23 Vitamin B12 Level 04/09/23 Most recent to oldest [Reference Range]: 1 T4 Free [0.76-1.46 ng/dL] 0.64 ng/dL *LOW* (04/09/23 8:29 AM) Folate Level [8.6-58.9 ng/mL] 13.2 ng/mL (04/09/23 8:29 AM) Iron Sat [20-55 %] 21 % (04/09/23 8:29 AM) B12 Level [193-986 pg/mL] 410 pg/mL (04/09/23 8:29 AM) TIBC [250-450 mcg/dL] 334 mcg/dL (04/09/23 8:29 AM) TSH [0.358-3.740 mcIntlUnit/mL] 8.776 mc IntlUnit/mL *HI* (04/09/23 8:29 AM) Iron [50-170 mcg/dL] 70 mcg/dL (04/09/23 8:29 AM) Social History Social History Type Response Tobacco Never tobacco user T obacco Use:. Sex Female Patient Care team information Care Team Personnel Name: Robert Toussaint MD Position: Physician Member Role: Informed Provider Address: Address: [address] [place] [address] Care Team Related Persons Name: VANESSA BROWN Address: [place] [address] Address: Home [address] [place] [phone] [place] Name: VAENSSA BROWN Address: [place] [id number] Address: Home [address] [place] [phone] [place] Name: NIRMAL AMBROSE Address: [address] [phone] Name: RON CARTER
--- OUTSIDE RECORDS SUMMARY | 2024-05-20 00:21 | XMS_ITS | Encounter Summary ---
Author Organization [facility] [place] [address] Care Team Providers Care Payment Manager Name Role Phone Kris Vang DO Primary Care Provider [phone] Encounter Details Date Type Department Care Team (Latest Contact Info) Description 08/22/2022 Travel Social History Tobacco Use Types Packs/Day [...] Scheduled View Only Obstetrics [place] [phone] Nurse, Theresa EATON RN 08/03/2024 11:00 AM EDT Office Visit Obstetrics [place] [phone] Elvia Renee MD [facility] [place] [address] documented as of this encounter Visit Diagnoses Not on filedocumented in this encounter Care Teams Payment Manager Relationship Specialty Start Date End Date Kris Vagn DO [address] [place] [address] [place] [address] PCP - General General Internal Medicine 07/30/1902/24 documented as of this encounter
--- OUTSIDE RECORDS SUMMARY | 2024-05-20 00:22 | XMS_ITS | Encounter Summary ---
Author Organization [facility] [place] [address] Care Team Providers Care Eddy Current Inspector Name Role Phone Kris Vang DO Primary Care Provider [phone] Encounter Details Date Type Department Care Team (Latest Contact Info) Description 07/30/2019 12:44 PM EDT - 07/30/2019 11:59 PM EDT Hospital [place] [address] Juan Mcconnell MD [facility] [address] [facility] RADIOLOGY [place], [place] [phone] Abnormal ultrasound Discharge Disposition: Home Social History Tobacco Use [...] Scheduled View Only Obstetrics [place] [address] Nurse, Theresa EATON, RN 08/03/2024 11:00 AM EDT Office Visit Obstetrics [place] [address] Elvia Renee MD [facility] [place] [address] documented as of this encounter Procedures Procedure Name Priority Date/Time Associated Diagnosis Comments MAMMO BREAST US LIMITED BILATERAL Routine 07/30/2019 1:34 PM EDT Abnormal ultrasound documented in this encounter Results * US Breast Limited Bilat (07/30/2019 1:34 PM EDT) Anatomical Region Laterality Modality Breast Bilateral Mammography Impressions 07/30/2019 2:12 PM EDT 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 I would not advise core biopsy. I would advise a short-term ultrasound follow-up at 4 months. The patient understands and may obtain this follow-up near to her home. BI-RADS Category 3: Probably Benign Finding-short interval follow-up or continued surveillance mammography * ??Medical organizations agree that annual screening mammography beginning at age 40 saves the most lives. * ??The risks of screening are negligible compared to dying from breast cancer or suffering from more aggressive treatment required when detected at a later stage. * ??No woman is at low risk for breast cancer. * ??Some women, because of their family history, a genetic tendency, or certain other factors, should be screened with breast MRI along with mammograms. (The number of women who fall into this category is very small). The patient and health care provider should discuss the patient history and decide if earlier screening and breast MRI are appropriate. * ??Screening should continue as long as a woman is in good health and is expected to live 10 years or longer. * ??Screening mammography may not detect 10-15% of breast cancers. * ??Women should report any breast changes to a health care provider right away. Thank you for letting us participate in the care of this patient. For questions regarding this report, please contact the number below. ? Narrative 07/30/2019 2:12 PM EDT EXAMINATION: US ??BREAST LIMITED BILATERAL CLINICAL HISTORY: Abnormal ultrasound TECHNIQUE: I personally performed high-resolution ultrasound following the technologist. COMPARISON: This is correlated with the outside screening breast ultrasound performed 07/14/2019 FINDINGS: There are sonographically benign appearing nonpalpable homogeneously hypoechoic well-circumscribed structures with mild posterior enhancement. The specific structure in the left breast at the 4:00 radian 4 cm from the nipple measures 0.8 cm in maximal transverse diameter. This contains a small adjacent 0.2 cm satellite structure anterior to it but is not a lobulated structure. In the right breast there is similarly a group of 2 adjacent homogeneously hypoechoic circumscribed masses at the 10:30 radian 7 cm from the nipple, measuring 1.3 cm in maximal diameter. Juan Mcconnell MD IMG MAMMO ORDERABLES documented in this encounter Visit Diagnoses Diagnosis Abnormal ultrasound Other nonspecific (abnormal) findings on radiological and other examinations of body structure documented in this encounter Care Teams Eddy Current Inspector Relationship Specialty Start Date End Date Kris Vang DO [address] [place] [address] [place] [address] PCP - General General Internal Medicine 07/30/1902/24 documented as of this encounter
--- OUTSIDE RECORDS SUMMARY | 2024-05-20 00:22 | XMS_ITS | Encounter Summary ---
Author Organization [facility] Address [address] [place] [address] Care Team Providers Care Apartment Maintenance Name Role Phone Unavailable Primary Care Provider Unavailabl e Encounter Details Date Type Department Care Team (Late st Contact Info) Description 04/26/2003 Results Only [facility] [address] [place] [address] Cheryl Harkins, RIGOBERTO [address] [facility] [place] [address] Social History Tobacco Use Types Packs/Day Years Used Date Smoking Tobacco: Never Assessed Sex and Gender Information Value Date Recorded Sex Assigned at Not on file Gender Identity Not on file Sexual Orientation Not on file documented as of this encounter Plan of Treatment Not on file documented as of this encounter Procedures Procedure Name Priority Date/Time Associated Diagnosis Comments CYTOPATHOLOGY Routine 04/26/2003 0:00 EDT documented in this encounter Results * CYTOPATHOLOGY (04/26/2003 0:00 EDT) Pathology Report: CYTOPATHOLOGY REPORT Reports generated via electronic interface contain original data; however they are lacking the format of the original report. Caution should be taken when reading/interpreti ng unformatted reports. Name: ? CARRIE AMBROSE ? Accession #: ? [id number] : ? 1970 (Age: 33) ??F ?Collect Date: ? 04/26/2003 Location: ? [facility] ? Receive Date: ? 04/28/2003 Provider: ?CHERYL HARKINS SPLITTER OPERATOR Copy to: ? Specimen/Source: ?ThinPrep Pap Test, Vagina/Cervix/Endo cervix Last Menstrual Period: ? 03/21/03 Other: ? HPVA - HPV testing requested if ASC-US on the current ThinPrep Pap test. ? SPECIMEN ADEQUACY ? Satisfactory for Evaluation - transformation zone component present GENERAL CATEGORIZATION ? Negative for Intraepithelial Lesion or Malignancy ? Document reviewed and electronically signed by: ? Gabriella Negrete, SCT(ASCP) ? Report Date: ??05/03/2003 14:53 End of Report ANJALI HACKETT 04/26/2003 04/28/2003 Cheryl Harkins NP PATHOLOGY ORDERABLES ANJALI HACKETT [address] [place] [address] documented in this encounter Visit Diagnoses Not on filedocumented in this encounter
--- OUTSIDE RECORDS SUMMARY | 2024-05-20 00:22 | XMS_ITS | Encounter Summary ---
Author Organization [facility] Address [address] [place] [address] Care Team Providers Care Fine Sander Name Role Phone None, Provider Primary Care Provider Unavailabl e Encounter Details Date Type Department Care Team (Late st Contact Info) Description 04/19/2024 Lab Requisition [facility] Pathology & Laboratory Medicine - [facility] [address] [place] [address] Fabricio Brooks MD [address] [place] [address] [place], [place] [phone] Encounter for other general examination Social History Tobacco Use Types Packs/Day Years Used Date Smoking Tobacco: Never Assessed Interpersonal Safety Answer Date Record ed Physically Hurt Never 05/28/2020 Verbally Threaten Not on file 05/28/2020 Sex and Gender Information Value Date Recorded Sex Assigned at Not on file Gender Identity Not on file Sexual Orientation Not on file documented as of this encounter Plan of Treatment Not on file documented as of this encounter Procedures Procedure Name Priority Date/Time Associated Diagnosis Comments SURGICAL PATHOLOGY Today 04/19/2024 8: 50 EDT Encounter for other general examination documented in this encounter Results * SURGICAL PATHOLOGY (04/19/2024 8:50 EDT) Note to Patient The following pathology results have been interpreted by your pathologist and may be available to you before your health provider has had the opportunity to review them. Please allow time for your provider to receive these results and explore management options, if applicable. 04/23/2024 14:[address] [facility] Final Diagnosis A. SOFT TISSUE, RIGHT HIP, ? LIPOMA? , EXCISION: - Consistent with lipoma. (see comment) 04/23/2024 14:[address] [facility] Diagnosis Comment Histologic examination reveals a lobulated proliferation of mature adipocytes. There is no significant nuclear atypia within adipocytes or stroma cells. 04/23/2024 14:10 [facility] Attestation There was significant resident/fellow involvement in the diagnostic evaluation of this case. By the signature below, the attending physician certifies that they have personally conducted a gross and/or microscopic examination of the described specimens and rendered or confirmed the above diagnosis. 04/23/2024 14:10 [facility] at 1410 Clinical History Subcutaneous lipoma (right hip) 04/23/2024 14:10 [facility] Gross Description A. Received in formalin labelled with proper patient identification (initials G, T) and lipoma of right hip is a 7.68 g, 5.5 x 4.5 x 1.2 cm aggregate of poorly encapsulated yellow lobulated adipose tissue fragments. The surfaces are inked and the specimens are serially sectioned to reveal a yellow homogeneous cut surface without evidence of hemorrhage or necrosis. Power Shovel Engineer sections are submitted in A1-A3. ANAY DOWLING(ASC) 04/20/2024 8:41 04/23/2024 14:10 [facility] Resident/Brennan w: Juanis Samson MD PhD 04/23/2024 14:[address] [facility] Performing Lab [facility] 04/23/2024 14:[address] [facility] Scanned Images 04/23/2024 14:10 [facility] Tissue SOFT TISSUE / Unknown 04/19/2024 8:50 EDT 04/20/2024 6:47 EDT Fabricio Brooks MD PATHOLOGY ORDERA BLES [facility] [address] [place] [address] documented in this encounter Visit Diagnoses Diagnosis Encounter for other general examination documented in this encounter Care Teams Fine Sander Relationship Specialty Start Date End Date None, Provider PCP - General 05/21/21 documented as of this encounter
--- OUTSIDE RECORDS SUMMARY | 2024-05-20 00:22 | XMS_ITS | Encounter Summary ---
Author Organization [facility] [place] [address] Care Team Providers Care Drafter Automotive Design Name Role Phone Pao Orellana Primary Care Provider [phone] Encounter Details Date Type Department Care Team (Late st Contact Info) Description 07/14/2019 Ancillary [place] [address] Juan Mcconnell MD [facility] [place] [address] Social History Tobacco Use Types Packs/Day Years [...] Scheduled View Only Obstetrics [place] [address] Nurse, Theresa EATON, RN 08/03/2024 11:00 AM EDT Office Visit Obstetrics [place] [address] Elvia Renee MD [facility] [place] [address] documented as of this encounter Procedures Procedure Name Priority Date/Time Associated Diagnosis Comments FILM LIBRARY-STORAGE ONLY US BREAST Routine 07/14/2019 12:00 AM EDT documented in this encounter Results * Film Library Storage Only US Breast (07/14/2019 12:00 AM EDT) Narrative RAD - 07/16/2019 12:02 PM EDT This exam is auto-finalizing. It's purpose is for storage only. Juan Mcconnell MD [facility] FILM LIBRARY ORD ERABLES [place], [place] documented in this encounter Visit Diagnoses Not on filedocumented in this encounter Care Teams Drafter Automotive Design Relationship Specialty Start Date End Date Pao Orellana PA [address] [place] [address] [place] [address] PCP - General General Internal Medicine 04/09/1707/29/19 documented as of this encounter
--- OUTSIDE RECORDS SUMMARY | 2024-05-20 00:22 | XMS_ITS | Encounter Summary ---
Author Organization [facility] [place] [address] Care Team Providers Care Fiber Heel Piece Shaper Name Role Phone Paco Jordan MD Primary Care Provider [phone] Encounter Details Date Type Department Care Team (Late st Contact Info) Description 06/07/2014 Ancillary Procedure [place] [address] Juan Mcconnell MD [facility] [place] [address] Social History Tobacco Use Types Packs/Day Years [...] Scheduled View Only Obstetrics [place] [address] Nurse, Theresa EATON, RN 08/03/2024 11:00 AM EDT Office Visit Obstetrics [place] [address] Elvia Renee MD [facility] [address] [place] [address] documented as of this encounter Procedures Procedure Name Priority Date/Time Associated Diagnosis Comments FILM LIBRARY STORAGE ONLY MAMMO Routine 06/07/2014 12:00 AM EDT documented in this encounter Results * Film Library- Storage Only Mammo (06/07/2014 12:00 AM EDT) Narrative RAD - 07/16/2019 11:48 AM EDT This exam is auto-finalizing. It's purpose is for storage only. Juan Mcconnell MD IMG FILM LIBRARY ORD ERABLES [place], [place] documented in this encounter Visit Diagnoses Not on filedocumented in this encounter Care Teams Fiber Heel Piece Shaper Relationship Specialty Start Date End Date Paco Jordan MD [address] [place] [address] [place] [address] PCP - General 09/18/10 04/08/17 documented as of this encounter
--- OUTSIDE RECORDS SUMMARY | 2024-05-20 00:22 | XMS_ITS | Encounter Summary ---
[place] [address] Care Team Providers Care Stamp Presser Name Role Phone Paco Jordan MD Primary Care Provider [phone] Encounter Details Date Type Department Care Team (Late st Contact Info) Description 05/19/2012 Ancillary Procedure [place] [address] Juan Mcconnell MD [facility] [place] [address] Social History Tobacco Use Types Packs/Day Years [...] Scheduled View Only Obstetrics [place] [address] Nurse, Theresa EATON, RN 08/03/2024 11:00 AM EDT Office Visit Obstetrics [place] [address] Elvia Renee MD [facility] [address] [place] [address] documented as of this encounter Procedures Procedure Name Priority Date/Time Associated Diagnosis Comments FILM LIBRARY STORAGE ONLY MAMMO Routine 05/19/2012 12:00 AM EDT documented in this encounter Results * Film Library- Storage Only Mammo (05/19/2012 12:00 AM EDT) Narrative RAD - 07/16/2019 11:44 AM EDT This exam is auto-finalizing. It's purpose is for storage only. Juan Mcconnell MD G FILM LIBRARY ORD ERABLES [place], [place] documented in this encounter Visit Diagnoses Not on filedocumented in this encounter Care Teams Stamp Presser Relationship Specialty Start Date End Date Paco Jordan MD [address] [place] [address] [place] [address] PCP - General 09/18/10 04/08/17 documented as of this encounter
--- OUTSIDE RECORDS SUMMARY | 2024-05-20 00:22 | XMS_ITS | Encounter Summary ---
Author Organization [facility] Address [address] [place] [address] Care Team Providers Care Satellite Communications Operator Name Role Phone Unavailable Primary Care Provider Unavailabl e Encounter Details Date Type Department Care Team (Late st Contact Info) Description 03/05/2002 Results Only [facility] - Maple conversion [address] [place] [address] Izabella Mabry MD [address] [place] [address] Social History Tobacco Use Types Packs/Day Years Used Date Smoking Tobacco: Never Assessed Sex and Gender Information Value Date Recorded Sex Assigned at Not on file Gender Identity Not on file Sexual Orientation Not on file documented as of this encounter Plan of Treatment Not on file documented as of this encounter Procedures Procedure Name Priority Date/Time Associated Diagnosis Comments CYTOPATHOLOGY Routine 03/05/2002 0:00 EDT documented in this encounter Results * CYTOPATHOLOGY (03/05/2002 0:00 EDT) Pathology Report: CYTOPATHOLOGY REPORT Reports generated via electronic interface contain original data; however they are lacking the format of the original report. Caution should be taken when reading/interpreti ng unformatted reports. Name: ? CARRIE AMBROSE ? Accession #: ? [id number] : ? 1970 (Age: 32) ??F ?Collect Date: ? 03/05/2002 Location: ? [facility] ? Receive Date: ? 03/10/2002 Provider: ?IZABELLA MABRY MD Copy to: ? Specimen/Source: ?Conventional Pap Test, Source Not Provided Last Menstrual Period: ? 02/15/02 ? SPECIMEN ADEQUACY ? Satisfactory for Evaluation - transformation zone component present GENERAL CATEGORIZATION ? Negative for Intraepithelial Lesion or Malignancy ? Document reviewed and electronically signed by: ? NIYAH Julio(ASCP) ? Report Date: ??03/11/2002 12:48 End of Report ANJALI HACKETT 03/05/2002 03/10/2002 Izabella Mabry MD PATHOLOGY ORDERABLES ANJALI HACKETT [address] [place] [address] documented in this encounter Visit Diagnoses Not on filedocumented in this encounter
--- OUTSIDE RECORDS SUMMARY | 2024-05-20 00:22 | XMS_ITS | Clinical Summary ---
Author Organization [facility] Address [address] [place] [address] Care Team Providers Care Senior Data Warehouse Developer Name Role Phone None, Provider Primary Care Provider Unavailabl e Allergies No known active allergies Medications No known medications Encounters Date Type Department Care Team Description 04/19/2024 Lab Requisition [facility] Pathology & Laboratory [address] [address] Fabricio Brooks MD Encounter for other general examination 02/24/2024 Lab Requisition [facility] Pathology & Laboratory [address] [address] Fabricio Brooks MD Encounter for other general examination from Last 3 Months Social History Tobacco Use Types Packs/Day Years Used Date Smoking Tobacco: Never Assessed Interpersonal Safety Answer Date Record ed Physically Hurt Never 05/28/2020 Verbally Threaten Not on file 05/28/2020 Sex and Gender Information Value Date Recorded Sex Assigned at Not on file Gender Identity Not on file Sexual Orientation Not on file Last Filed Vital Signs Vital Sign Reading Time Taken Comments Blood Pressure 154/87 05/24/2021 1405 EDT Pulse 79 05/24/2021 1405 EDT Temperature 36.5 ??C (97.7 ??F) 05/24/2021 1405 EDT Respiratory Rate - - Oxygen Saturation - - Inhaled Oxygen Concentration - - Weight 82.1 kg (181 lb) 05/24/2021 1405 EDT Height - - Body Mass Index - - Plan of Treatment Health Maintenance Due Date Last Done Comments Hepatitis C Screen 1970 Hepatitis B Vaccine (1 of 3 - 19+ 3-dose series) 03/02 COVID-19 Vaccine ( season) 2023 Procedures Procedure Name Priority Date/Time Associated Diagnosis Comments SURGICAL PATHOLOGY Today 04/19/2024 8: 50 EDT Encounter for other general examination SURGICAL PATHOLOGY Today 02/24/2024 14 :20 EDT from Last 3 Months Results * SURGICAL PATHOLOGY (04/19/2024 8:50 EDT) Only the most recent of2 resultswithin the time period is included. Note to Patient The following pathology results have been interpreted by your pathologist and may be available to you before your health provider has had the opportunity to review them. Please allow time for your provider to receive these results and explore management options, if applicable. 04/23/2024 14:10 [facility] Final Diagnosis A. SOFT TISSUE, RIGHT HIP, ? LIPOMA? , EXCISION: - Consistent with lipoma. (see comment) 04/23/2024 14:10 [facility] Diagnosis Comment Histologic examination reveals a lobulated proliferation of mature adipocytes. There is no significant nuclear atypia within adipocytes or stroma cells. 04/23/2024 14:10 [facility] Attestation There was significant resident/fellow involvement in the diagnostic evaluation of this case. By the signature below, the attending physician certifies that they have personally conducted a gross and/or microscopic examination of the described specimens and rendered or confirmed the above diagnosis. 04/23/2024 14:10 [facility] at 1410 Clinical History Subcutaneous lipoma (right hip) 04/23/2024 14:10 [facility] Gross Description A. Received in formalin labelled with proper patient identification (initials G, T) and lipoma of right hip is a 7.68 g, 5.5 x 4.5 x 1.2 cm aggregate of poorly encapsulated yellow lobulated adipose tissue fragments. The surfaces are inked and the specimens are serially sectioned to reveal a yellow homogeneous cut surface without evidence of hemorrhage or necrosis. Cook Relief sections are submitted in A1-A3. ANAY DOWLING(ASCP) 04/20/2024 8:41 04/23/2024 14:10 EDT [facility] Resident/Brennan w: Juanis Samson MD PhD 04/23/2024 14:10 EDT [facility] Performing Lab [facility] 04/23/2024 14:10 EDT [facility] Scanned Images 04/23/2024 14:10 EDT [facility] Tissue SOFT TISSUE / Unknown 04/19/2024 8:50 EDT 04/20/2024 6:47 EDT Fabricio Brooks MD PATHOLOGY ORDERA ANNEL [facility] [address] [place] [address] from Last 3 Months Care Teams Senior Data Warehouse Developer Relationship Specialty Start Date End Date None, Provider PCP - General 05/21/21
--- OUTSIDE RECORDS SUMMARY | 2024-05-20 00:22 | XMS_ITS | Encounter Summary ---
Author Organization [facility] [place] [address] Care Team Providers Care Director Of Event Marketing Name Role Phone Pao Orellana Primary Care Provider [phone] Encounter Details Date Type Department Care Team (Late st Contact Info) Description 07/09/2017 Telephone Dermatology at [facility] [address] [place] [address] Dee Long MD [facility] DR BRI[place] [address] Social History Tobacco Use Types Packs/Day Years Used Date Smoking Tobacco: Never Smokeless Tobacco: Never Sex and Gender Information Value Date Recorded Sex Assigned at Not on file Gender Identity Not on file Sexual Orientation Not on file documented as of this encounter Miscellaneous Notes * Telephone Encounter - Dee Long - 07/09/2017 1:31 PM EDT Called Ms. Cobos at 1:32 PM on 07/09/17 to discuss results of her biopsy, which revealed the following: DIAGNOSIS Skin, right posterior thigh, shave removal: - ??Compound melanocytic nevus with congenital-type features, present at the base of the specimen Explained that the biopsy showed a benign nevus. No further treatment required. Ms. Cobos expressed understanding and thanked me for the call. DEE LONG MD Resident in Dermatology [facility] documented in this encounter Plan of Treatment Upcoming Encounters Date Type Department Care Team (Late st Contact Info) Description 08/03/2024 10:45 AM EDT Scheduled View Only Obstetrics [place] [id number] Nurse, Theresa EATON RN 08/03/2024 11:00 AM EDT Office Visit Obstetrics [place] [address] Elvia Renee MD [facility] [place] [address] documented as of this encounter Visit Diagnoses Not on filedocumented in this encounter Care Teams Director Of Event Marketing Relationship Specialty Start Date End Date Pao Orellana PA [address] [place] [address] [place] [address] PCP - General General Internal Medicine 04/09/1707/29/19 documented as of this encounter
--- OUTSIDE RECORDS SUMMARY | 2024-05-20 00:22 | XMS_ITS | Encounter Summary ---
Author Organization [facility] Address [address] [place] [address] Care Team Providers Care Brake Rider Name Role Phone Unknown, Provider MD Primary Care Provider None, Provider Primary Care Provider Unavailabl e Encounter Details Date Type Department Care Team (Late st Contact Info) Description 10/01/2019 Lab Requisition [facility] Pathology & Laboratory Medicine - [address] [address] Rayshawn Saunders MD [address] [place] [id number] Encounter for other general examination Social History [...] Date/Time Associated Diagnosis Comments SURGICAL PATHOLOGY Today 10/01/2019 12 :20 EST documented in this encounter Results * SURGICAL PATHOLOGY (10/01/2019 12:20 EST) Final Diagnosis A. SOFT TISSUE OF RIGHT MID BACK, EXCISION: - Lipoma. 10/05/2019 15:04 EST [facility] at 1504 Clinical History Right mid back lipoma 10/05/2019 15:04 EST [facility] Attestation There was significant resident/fellow involvement in the diagnostic evaluation of this case. By the signature below, the attending physician certifies that they have personally conducted a gross and/or microscopic examination of the described specimens and rendered or confirmed the above diagnosis. 10/05/2019 15:04 [facility] at 1504 Gross Description A. Received in formalin labelled with proper patient identification (initials G, T) and R mid back lipoma is a 9.0 x 6.5 by 2.1 cm ovoid fragment of pale yellow adipose tissue weighing 70.0 g. The outer surface is inked. Sectioning reveals homogenous, yellow cut surfaces. Bacteriologist Fishery sections are submitted in A1-A5. Guerda Rosas 10/04/2019 09:49 10/05/2019 15:04 [facility] Resident/Brennan w: Javier Birmingham MD 10/05/2019 15:04 [facility] Scanned Images 10/05/2019 15:04 [facility] Tissue SOFT TISSUE / Unknown 10/01/2019 12:20 EST 10/04/2019 8:39 EST Rayshawn Saunders MD PATHOLOGY ORDER SANTOS [facility] [address] [place] [address] documented in this encounter Visit Diagnoses Diagnosis Encounter for other general examination documented in this encounter Care Teams Brake Rider Relationship Specialty Start Date End Date Unknown, Provider, PCP - General 10/13/15 05/20/21 None, Provider PCP - General 05/21/21 documented as of this encounter
--- OUTSIDE RECORDS SUMMARY | 2024-05-20 00:22 | XMS_ITS | Encounter Summary ---
Author Organization [facility] [place] [address] Care Team Providers Care Printer Apprentice Name Role Phone Unavailable Primary Care Provider Unavailabl e Encounter Details Date Type Department Care Team (Late st Contact Info) Description 05/13/2007 Ancillary Procedure [place] [address] Juan Mcconnell MD [facility] [place] [address] Social History Tobacco Use Types Packs/Day Years [...] Scheduled View Only Obstetrics [place] [address] Nurse, Theresa EATON, RN 08/03/2024 11:00 AM EDT Office Visit Obstetrics [place] [address] Elvia Renee MD [facility] [place] [address] documented as of this encounter Procedures Procedure Name Priority Date/Time Associated Diagnosis Comments FILM LIBRARY STORAGE ONLY MAMMO Routine 05/13/2007 12:00 AM EDT documented in this encounter Results * Film Library- Storage Only Mammo (05/13/2007 12:00 AM EDT) Narrative MARIA LUISA - 07/16/2019 11:43 AM EDT This exam is auto-finalizing. It's purpose is for storage only. Juan Mcconnell MD [facility] FILM LIBRARY ORD ERABLES Performing Organization Address City/State/[facility] Co de Phone Number [place], [place] documented in this encounter Visit Diagnoses Not on filedocumented in this encounter
--- OUTSIDE RECORDS SUMMARY | 2024-05-20 00:22 | XMS_ITS | Encounter Summary ---
Author Organization [facility] Address [address] [place] [address] Care Team Providers Care Professional Bass Fisher Name Role Phone None, Provider Primary Care Provider Unavailabl e Reason for Visit * Reason Onset Date Comments Labs Only 07/20/2021 Encounter Details Date Type Department Care Team (Late st Contact Info) Description 07/20/2021 Telephone [facility] Infectious Disease - [address] [id number] Natalia Clark, DISTRIBUTION CENTER ASSOCIATE [address] [facility], [address] [place] [address] Labs Only Social History Tobacco Use Types Packs/Day Years Used Date Smoking Tobacco: Never Assessed Interpersonal Safety Answer Date Record ed Physically Hurt Never 05/28/2020 Verbally Threaten Not on file 05/28/2020 Sex and Gender Information Value Date Recorded Sex Assigned at Not on file Gender Identity Not on file Sexual Orientation Not on file documented as of this encounter Miscellaneous Notes * Telephone Encounter - Shantel Rivers MA - 07/20/2021 1600 EDT Received call from Dayna who works at [facility]. She states patient is there to get labs drawn but they do not have orders. Please fax orders ATTN: Dayna to fax # [phone]. Faxed lab orders to Dayna. documented in this encounter Plan of Treatment Not on file documented as of this encounter Visit Diagnoses Not on filedocumented in this encounter Care Teams Professional Bass Fisher Relationship Specialty Start Date End Date None, Provider PCP - General 05/21/21 documented as of this encounter
--- OUTSIDE RECORDS SUMMARY | 2024-05-20 00:22 | XMS_ITS | Encounter Summary ---
Author Organization [facility] Address [address] [place] [address] Care Team Providers Care Overlock Operator Name Role Phone None, Provider Primary Care Provider Unavailabl e Encounter Details Date Type Department Care Team (Latest Contact Info) Description 05/24/2021 Travel Social History Tobacco Use Types Packs/Day [...] on filedocumented in this encounter Care Teams Overlock Operator Relationship Specialty Start Date End Date None, Provider PCP - General 05/21/21 documented as of this encounter
--- OUTSIDE RECORDS SUMMARY | 2024-05-20 00:22 | XMS_ITS | Encounter Summary ---
Author Organization [facility] [place] [address] Care Team Providers Care Esthetician/Spa Coordinator Name Role Phone Pao Orellana Primary Care Provider Encounter Details Date Type Department Care Team (Late st Contact Info) Description 02/05/2019 Ancillary Procedure [place] [address] Juan Mcconnell MD [facility] [place] [address] Social History Tobacco Use Types Packs/Day Years [...] Scheduled View Only Obstetrics [place] [address] Nurse, Theresa EATON, RN 08/03/2024 11:00 AM EDT Office Visit Obstetrics [place] [address] Elvia Renee MD [facility] [place] [address] documented as of this encounter Procedures Procedure Name Priority Date/Time Associated Diagnosis Comments FILM LIBRARY STORAGE ONLY MAMMO Routine 02/05/2019 12:00 AM EDT documented in this encounter Results * Film Library- Storage Only Mammo (02/05/2019 12:00 AM EDT) Narrative RAD - 07/16/2019 12:00 PM EDT This exam is auto-finalizing. It's purpose is for storage only. Juan Mcconnell MD G FILM LIBRARY ORD ERABLES [place], [place] documented in this encounter Visit Diagnoses Not on filedocumented in this encounter Care Teams Esthetician/Spa Coordinator Relationship Specialty Start Date End Date Pao Orellana PA [address] [place] [address] [place] [address] PCP - General General Internal Medicine 04/09/1707/29/19 documented as of this encounter
--- OUTSIDE RECORDS SUMMARY | 2024-05-20 00:22 | XMS_ITS | Encounter Summary ---
Author Organization [facility] Address [address] [place] [address] Care Team Providers Care Managed Care Provider Name Role Phone Unavailable Primary Care Provider Unavailabl e Encounter Details Date Type Department Care Team (Late st Contact Info) Description 08/27/2010 Results Only [facility] - [facility] [address] [place], [place] [address] Shola Hagen, [facility] [address] [place], [place] [id number] Social History Tobacco Use Types Packs/Day Years Used Date Smoking Tobacco: Never Assessed Sex and Gender Information Value Date Recorded Sex Assigned at Not on file Gender Identity Not on file Sexual Orientation Not on file documented as of this encounter Plan of Treatment Not on file documented as of this encounter Procedures Procedure Name Priority Date/Time Associated Diagnosis Comments CYTOPATHOLOGY Routine 08/27/2010 0:00 EDT documented in this encounter Results * CYTOPATHOLOGY (08/27/2010 0:00 EDT) Pathology Report: CYTOPATHOLOGY REPORT ? Reports generated via electronic interface contain original data; ? however they are lacking the format of the original report. ? Caution should be taken when reading/interpreti ng unformatted reports. ? Name: ? GUILLETTE, CARRIE ? Accession #: ? [id number] ? : ? 1970 (Age: 40) ??F ?Collect Date: ? 08/27/2010 ? Location: ? [facility] ? Receive Date: ? 08/29/2010 ? Provider: SHOLA HAGEN CNM ? Copy to: ? Final Report ? SPECIMEN ADEQUACY ? Satisfactory for Evaluation ? - transformation zone component present ? GENERAL CATEGORIZATION ? Negative for Intraepithelial Lesion or Malignancy ? INTERPRETATION ? Reactive cellular changes associated with inflammation present (includes ?? repair). ? Last Menstural Period: //10 ? Specimen/Source: ??Pap Test, Cervix/Endocervix, ThinPrep Imaging System with ? manual evaluation ? Document reviewed and electronically signed by: ? KADI L OCONNOR MD ? Report ??Date: 08/31/2010 14:31 ? HPV with Pap Test ? Date Ordered: ? 08/31/2010 ? Status: ?? Signed Out ?Date Complete: ? 09/05/2010 ? By: ??System Interface ? Date Reported: ? 09/05/2010 ? Interpretation ? RESULT: Negative for HPV types 16, 18, 31, 33, 35, 39, 45, 51, 52, ? 56, 58, 59, and 68. ? Comments ? Document reviewed and electronically signed by: ? System Interface ? Report date: 09/05/2010 ? By the signature above, the attending physician certifies that he/she has ? personally conducted a gross and/or microscopic examination of the described ? specimens and rendered or confirmed the above diagnosis. ? End of Report ? ANJALI HACKETT 08/27/2010 08/29/2010 Shola Hagen CNM PATHOLOGY [place] [facility] Performing Organization Address City/State/[facility] Co de Phone Number ANJALI HACKETT [address] [place] [address] documented in this encounter Visit Diagnoses Not on filedocumented in this encounter
--- OUTSIDE RECORDS SUMMARY | 2024-05-20 00:22 | XMS_ITS | Encounter Summary ---
Author Organization [facility] Address [address] [place] [address] Care Team Providers Care Rotor Casting Machine Operator Name Role Phone None, Provider Primary Care Provider Unavailabl e Reason for Visit * Reason Comments New Patient Visit * Consult (Routine) - Receiving Office to Obtain Authorization Specialty Diagnoses / Procedures Referred By Contav t Referred To Contact Infectious Disease Diagnoses Encounter for testing for latent tuberculosis infection Kris Vang, DO [address] [facility] [address] [place] [address] [place] [address] Infectious Disease [address] [place] [address] Referral ID Status Reason Start Date Expiration Date Visits Requested Visits Authorized [id number] Receiving Office to Obtain Authorization 1 1 Encounter Details Date Type Department Care Team (Late st Contact Info) Description 05/24/2021 14:00 EDT Office Visit [facility] Infectious Disease - [address] [id number] Natalia Clark NP [address] [facility], [address] [place] [address] TB lung, latent (Primary Dx) Social History Tobacco Use Types Packs/Day Years Used Date Smoking Tobacco: Never Assessed Interpersonal Safety Answer Date Record ed Physically Hurt Never 05/28/2020 Verbally Threaten Not on file 05/28/2020 Sex and Gender Information Value Date Recorded Sex Assigned at Not on file Gender Identity Not on file Sexual Orientation Not on file documented as of this encounter Last Filed Vital Signs Vital Sign Reading Time Taken Comments Blood Pressure 154/87 05/24/2021 1405 EDT Pulse 79 05/24/2021 1405 EDT Temperature 36.5 ??C (97.7 ??F) 05/24/2021 1405 EDT Respiratory Rate - - Oxygen Saturation - - Inhaled Oxygen Concentration - - Weight 82.1 kg (181 lb) 05/24/2021 1405 EDT Height - - Body Mass Index - - documented in this encounter Patient Instructions * Patient Instructions* Natalia Clark NP - 05/24/2021 14:00 EDT Images from the original note were not included. Rifampin 600mg x 4 months- side effects: multiple drug-drug interactions, change in color of urine/stool, liver injury Isoniazid 300mg x 6 months - liver injury, peripheral neuropathy documented in this encounter Progress Notes * Natalia Clark NP - 05/24/2021 1400 EDT INFECTIOUS DISEASES New Patient: HPI: Carrie is a 51 y.o female who is seen today to discuss positive TB Quant. She recently changed employment and one TB quant was completed for employment which resulted as positive. She then had a repeat TB quant completed which again resulted as positive. A chest x-ray was completed shortly after andthat was negative. She does not remember a time when she could have been exposed to someone with active TB. She primarily lived in [place], did spend some time in [place]. Has travelled slightly overseas as a child, but not to high risk countries. She has no symptoms of active TB which include shortness of breath, fever, weight loss, hemoptysis. ROS: a 10 point ROS is otherwise negative MEDICATIONS: No current medications No past medical history on file. No past surgical history on file. PHYSICAL EXAMINATION: BP (!) 154/87 (BP Cuff Location: Left arm, BP Patient Position: Sitting, BP Cuff Sizes: Adult, regular) Pulse 79 Temp 36.5 ??C (97.7 ??F) (Temporal) Wt 82.1 kg (181 lb) Gen a x 3 in no acute distress Lungs- clear throughout all [facility] Cardiac- RRR no murmur LABORATORIES: 04/25/2021 Positive TB Quant 04/11/2021 Positive TB Quant 04/11/2021 Chest x-ray clear IMPRESSION: Positive TB Quant- Patient with two positive TB Quant and a negative chest x- ray. Although she doesnot have any high risk exposure with two positives we need to treat this as a diagnosis for latent TB. We discussed that latent TB is an inactive form of tuberculosis. She is currently not infectious. According to the TST IGRA calculator there is about a 3.04% chance that she can develop active TB up to the age of 80. We discussed that this risk increases greatly if she were to go on immunosuppressants. She also would need to be treated prior to going on any immunosuppressant therapy. We discussed treatment options which include Rifampin 600mg x 4 months- side effects typically are multiple drug-drug interactions, change in color of urine/stool and may cause liver damage- however we monitor closely for that. At this point she would like to think about her options and get back to me if she decides to under go treatment. PLAN: 1. Patient will call clinic if she decides to undergo treatment. Would most likely treat with Rifampin 600mg x 4 months. Patient would have monthly LFTs and symptom monitoring. Natalia Clark NP documented in this encounter Plan of Treatment Not on file documented as of this encounter Visit Diagnoses Diagnosis TB lung, latent- Primary Unspecified pulmonary tuberculosis, confirmation unspecified documented in this encounter Care Teams Rotor Casting Machine Operator Relationship Specialty Start Date End Date None, Provider PCP - General 05/21/21 documented as of this encounter
--- OUTSIDE RECORDS SUMMARY | 2024-05-20 00:22 | XMS_ITS | Encounter Summary ---
Author [facility] [place] [address] Care Team Providers Care Conveyor Line Bakery Worker Name Role Phone Paco Jordan MD Primary Care Provider [phone] Encounter Details Date Type Department Care Team (Late st Contact Info) Description 07/19/2015 Ancillary Procedure [place] [address] [facility] [place] [address] Social History Tobacco Use Types Packs/Day Years [...] Scheduled View Only Obstetrics [place] [address] Nurse, Theresa EATON, RN 08/03/2024 11:00 AM EDT Office Visit Obstetrics [place] [address] Elvia Renee MD [facility] [address] [place] [address] documented as of this encounter Procedures Procedure Name Priority Date/Time Associated Diagnosis Comments FILM LIBRARY STORAGE ONLY MAMMO Routine 07/19/2015 12:00 AM EDT documented in this encounter Results * Film Library- Storage Only Mammo (07/19/2015 12:00 AM EDT) Narrative RAD - 07/16/2019 11:49 AM EDT This exam is auto-finalizing. It's purpose is for storage only. Juan Mcconnell MD IMG FILM LIBRARY ORD ERABLES [place], [place] documented in this encounter Visit Diagnoses Not on filedocumented in this encounter Care Teams Conveyor Line Bakery Worker Relationship Specialty Start Date End Date Paco Jordan MD [address] [place] [address] [place] [address] PCP - General 09/18/10 04/08/17 documented as of this encounter
--- OUTSIDE RECORDS SUMMARY | 2024-05-20 00:22 | XMS_ITS | Encounter Summary ---
Author Organization [facility] Address [address] [place] [address] Care Team Providers Care Client Services Account Manager Name Role Phone None, Provider Primary Care Provider Unavailabl e Encounter Details Date Type Department Care Team (Late st Contact Info) Description 06/14/2021 Orders Only [facility] Infectious Disease - [facility] [address], [place] [id number] Lissy Mosquera RN High risk medication use (Primary Dx); LTBI (latent tuberculosis infection) Social History Tobacco Use Types Packs/Day Years Used Date Smoking Tobacco: Never Assessed Interpersonal Safety Answer Date Record ed Physically Hurt Never 05/28/2020 Verbally Threaten Not on file 05/28/2020 Sex and Gender Information Value Date Recorded Sex Assigned at Not on file Gender Identity Not on file Sexual Orientation Not on file documented as of this encounter Ordered Prescriptions Prescription Sig Dispensed Refills Start Date End Da te rifAMPin (RIFADIN) 300 mg capsule Take 2 Capsules by mouth daily for 30 days. 60 capsule 3 06/14/2021 07/14/2021 documented in this encounter Progress Notes * Lissy Mosquera RN - 06/14/2021 0947 EDT Rifampin 600 mg po daily x4 months ordered and faxed along with CHUCK Raquel foleys in [place] [facility] [place] [facility] ordered monthly and sent to [facility] per Carrie's request. She will call ID clinic with any concerns or c/o adverse side effects. Contacted Carrie and told her that since she lives far away from [place], requested she receive her medication via mail order. documented in this encounter Plan of Treatment Not on file documented as of this encounter Visit Diagnoses Diagnosis High risk medication use- Primary Encounter for long-term (current) use of other medications LTBI (latent tuberculosis infection) Nonspecific reaction to tuberculin skin test without active tuberculosis documented in this encounter Care Teams Client Services Account Manager Relationship Specialty Start Date End Date None, Provider PCP - General 05/21/21 documented as of this encounter
--- OUTSIDE RECORDS SUMMARY | 2024-05-20 00:22 | XMS_ITS | Encounter Summary ---
Author Organization [facility] [place] [address] Care Team Providers Care Retort Unloader Name Role Phone Pao Orellana Primary Care Provider Encounter Details Date Type Department Care Team (Late st Contact Info) Description 11/18/2017 Ancillary Procedure [place] [phone] Juan Mcconnell MD [facility] [place] [address] Social History Tobacco Use Types Packs/Day Years [...] Scheduled View Only Obstetrics [place] [address] Nurse, Theresa EATON, RN 08/03/2024 11:00 AM EDT Office Visit Obstetrics [place] [address] Elvia Renee MD [facility] [place] [address] documented as of this encounter Procedures Procedure Name Priority Date/Time Associated Diagnosis Comments FILM LIBRARY-STORAGE ONLY US BREAST Routine 11/18/2017 12:00 AM EST documented in this encounter Results * Film Library Storage Only US Breast (11/18/2017 12:00 AM EST) Narrative RAD - 07/16/2019 11:59 AM EDT This exam is auto-finalizing. It's purpose is for storage only. Juan Mcconnell MD G FILM LIBRARY ORD ERABLES [place], [place] documented in this encounter Visit Diagnoses Not on filedocumented in this encounter Care Teams Retort Unloader Relationship Specialty Start Date End Date Pao Orellana PA [address] [place] [address] [place] [address] PCP - General General Internal Medicine 04/09/1707/29/19 documented as of this encounter
--- OUTSIDE RECORDS SUMMARY | 2024-05-20 00:22 | XMS_ITS | Encounter Summary ---
Author Organization [facility] [place] [address] Care Team Providers Care Admin Assistant Name Role Phone Kris Vang DO Primary Care Provider [phone] Encounter Details Date Type Department Care Team (Latest Contact Info) Description 08/07/2020 1:28 PM EDT - 08/07/2020 11:59 PM EDT Hospital En[place] [address] Huong Donald MD [facility] [place] [address] Abnormal finding on breast imaging Discharge Disposition: [...] Scheduled View Only Obstetrics [place] [address] Nurse, Theresa EATON, MARIA L 08/03/2024 11:00 AM EDT Office Visit Obstetrics [place] [address] Elvia Renee MD [facility] [place] [address] documented as of this encounter Procedures Procedure Name Priority Date/Time Associated Diagnosis Comments MAMMO BREAST US LIMITED BILATERAL Routine 08/07/2020 2:07 PM EDT Abnormal finding on breast imaging documented in this encounter Results * US Breast Limited Bilat (08/07/2020 2:07 PM EDT) Anatomical Region Laterality Modality Breast Bilateral Mammography Impressions 08/07/2020 3:53 PM EDT 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 Recommendation: 12 month follow-up with bilateral mammogram and sonogram is recommended to ensure 2 year stability. BI-RADS Category 3: Probably Benign Finding-short interval follow-up or continued surveillance mammography * ??Regular screening mammograms starting between age [...] Patients and health care providers should discuss the history of each patient to decide if earlier screening and/or breast MRI are appropriate. * ??Screening should continue as long as a woman is in good health and is expected to live 10 years or longer. * ??Screening mammography may not detect 10-15% of breast cancers. I have personally reviewed the image(s) and the resident's interpretation and agree with the findings, Vicki Garcia MD at 08/07/2020 3:53 PM Thank you for letting us participate in the care of this patient. For questions regarding this report, please contact the number below. ? Narrative 08/07/2020 3:53 PM EDT DIAGNOSTIC MAMMOGRAPHY AND ULTRASOUND OF THE BREAST CLINICAL HISTORY: 8 month f/u bilateral masses. TECHNIQUE AND VIEWS OBTAINED: 2D digitally acquired Craniocaudal (CC) and Medio-lateral oblique (MLO) views were obtained of each breast. ??3D tomosynthesis images were obtained in addition to 2D images. Computer Assisted Detection was used. Targeted high-resolution bilateral breast ultrasound was obtained using grayscale and color Doppler technique. COMPARISONS: This study was compared with multiple prior images. BREAST DENSITY: The breasts are extremely dense, which lowers the sensitivity of mammography FINDINGS MAMMOGRAPHY: No suspicious mammographic findings. No masses, microcalcifications or areas of architectural distortion. FINDINGS ULTRASOUND: Stable, sonographically benign-appearing hypoechoic, well-circumscribed structures with mild posterior acoustic enhancement. The specific structure in the left breast 4:00 radian, 4 cm from the nipple measures 0.8 cm in maximal dimension, is unchanged. Small adjacent 0.2 cm satellite structure is also unchanged. In the right breast 10:30 radian, 7 cm from nipple, measuring 1.3 cm in maximal dimension there is a hypoechoic mass, unchanged in size and appearance. Huong Donald MD IMG MAMMO ORD ERABLES documented in this encounter Visit Diagnoses Diagnosis Abnormal finding on breast imaging Other (abnormal) findings on radiological examination of breast documented in this encounter Care Teams Admin Assistant Relationship Specialty Start Date End Date Kris Vang DO [address] [place] [address] [place] [address] PCP - General General Internal Medicine 07/30/1902/24 documented as of this encounter
--- OUTSIDE RECORDS SUMMARY | 2024-05-20 00:22 | XMS_ITS | Encounter Summary ---
Author Organization [facility] Address [address] [place] [address] Care Team Providers Care Glass Inspector Name Role Phone None, Provider Primary Care Provider Unavailabl e Reason for Visit * Reason Onset Date Comments Medication Management 06/13/2021 Encounter Details Date Type Department Care Team (Late st Contact Info) Description 06/13/2021 Telephone [facility] Infectious Disease - [address] [phone] Natalia Clark, RIGOBERTO [address] [facility], [address] [place] [phone] Medication Management Social History Tobacco Use Types Packs/Day Years Used Date Smoking Tobacco: Never Assessed Interpersonal Safety Answer Date Record ed Physically Hurt Never 05/28/2020 Verbally Threaten Not on file 05/28/2020 Sex and Gender Information Value Date Recorded Sex Assigned at Not on file Gender Identity Not on file Sexual Orientation Not on file documented as of this encounter Miscellaneous Notes * Telephone Encounter - Lissy Mosquera RN - 06/14/2021 1053 EDT Rifampin RX sent along with [facility]UCK form to [facility] in [place]. Patient requested mail-order since she lives [address]. Away. * Telephone Encounter - Maryann Lacy - 06/13/2021 1340 EDT Patient states she would like to begin treatment with Rifampin. She says when she spoke with Natalia Clark at her appointment, it was discussed that the order needs to go through the [place] [facility],and through a specific pharmacy in [place] which they are affiliated. Carrie would like a call back to know which pharmacy to pick medication up at, and when. [phone]. documented in this encounter Plan of Treatment Not on file documented as of this encounter Visit Diagnoses Not on filedocumented in this encounter Care Teams Glass Inspector Relationship Specialty Start Date End Date None, Provider PCP - General 05/21/21 documented as of this encounter
--- OUTSIDE RECORDS SUMMARY | 2024-05-20 00:22 | XMS_ITS | Encounter Summary ---
Author Organization [facility] Address [address] [place] [address] Care Team Providers Care Engineering Inspector Name Role Phone None, Provider Primary Care Provider Unavailabl e Encounter Details Date Type Department Care Team (Late st Contact Info) Description 01/12/2024 Lab Requisition [facility] Pathology & Laboratory Medicine - [address] [phone] Outr Resulting Lab, Provider Social History Tobacco Use Types Packs/Day Years [...] Procedure Name Priority Date/Time Associated Diagnosis Comments RHEUMATOID FACTOR Routine 01/12/2024 16: 54 EDT documented in this encounter Results * RHEUMATOID FACTOR (01/12/2024 16:54 EDT) Rheumatoid Factor <8.6 <12.0 IU/mL 01/12/2024 21:40 EDT [facility] Blood VENOUS BLOOD / Unknown 01/12/2024 16:54 EDT 01/12/2024 21:17 EDT Provider Outr Resulting Lab CHEMISTRY & BLOOD GAS ORDERABLES [facility] [address] [place] [address] documented in this encounter Visit Diagnoses Not on filedocumented in this encounter Care Teams Engineering Inspector Relationship Specialty Start Date End Date None, Provider PCP - General 05/21/21 documented as of this encounter
--- OUTSIDE RECORDS SUMMARY | 2024-05-20 00:22 | XMS_ITS | Encounter Summary ---
Author Organization [facility] [place] [address] Care Team Providers Care Steam Drier Operator Name Role Phone Paco Jordan MD Primary Care Provider [phone] Encounter Details Date Type Department Care Team (Late st Contact Info) Description 06/01/2013 Ancillary Procedure [place] [address] Juan Mcconnell MD [facility] [place] [address] Social History Tobacco Use Types Packs/Day Years [...] Scheduled View Only Obstetrics [place] [address] Nurse, Theresa EATON, RN 08/03/2024 11:00 AM EDT Office Visit Obstetrics [place] [address] Elvia Renee MD [facility] [address] [place] [address] documented as of this encounter Procedures Procedure Name Priority Date/Time Associated Diagnosis Comments FILM LIBRARY STORAGE ONLY MAMMO Routine 06/01/2013 12:00 AM EDT documented in this encounter Results * Film Library- Storage Only Mammo (06/01/2013 12:00 AM EDT) Narrative RAD - 07/16/2019 11:45 AM EDT This exam is auto-finalizing. It's purpose is for storage only. Juan Mcconnell MD G FILM LIBRARY ORD ERABLES [place], [place] documented in this encounter Visit Diagnoses Not on filedocumented in this encounter Care Teams Steam Drier Operator Relationship Specialty Start Date End Date Paco Jordan MD [address] [place] [address] [place] [address] PCP - General 09/18/10 04/08/17 documented as of this encounter
--- OUTSIDE RECORDS SUMMARY | 2024-05-20 00:22 | XMS_ITS | Encounter Summary ---
Author Organization [facility] [place] [address] Care Team Providers Care Principal Statistical Scientist Name Role Phone Kris Vang DO Primary Care Provider [phone] Encounter Details Date Type Department Care Team (Latest Contact Info) Description 08/07/2020 1:28 PM EDT - 08/07/2020 11:59 PM EDT Hospital [place] [address] Huong Donald MD [facility] [place] [address] Abnormal finding on breast imaging Discharge Disposition: [...] Scheduled View Only Obstetrics [place] [address] Nurse, Theresa EATON, MARIA L 08/03/2024 11:00 AM EDT Office Visit Obstetrics [place] [address] Elvia Renee MD [facility] [address] documented as of this encounter Procedures Procedure Name Priority Date/Time Associated Diagnosis Comments MAMMO DIAGNOSTIC CAD AND SHAWN BILATERAL Routine 08/07/2020 1:45 PM EDT Abnormal finding on breast imaging documented in this encounter Results * Mammo Diagnostic CAD and Shawn Bilateral (08/07/2020 1:45 PM EDT) Anatomical Region Laterality Modality Breast [...] report, please contact the number below. ? Electronically signed by: Vicki Garcia MD, [facility] ([phone]), at 08/07/2020 3:53 PM Narrative 08/07/2020 3:53 PM EDT DIAGNOSTIC MAMMOGRAPHY [...] breast documented in this encounter Care Teams Principal Statistical Scientist Relationship Specialty Start Date End Date Kris Vang DO [address] [place] [address] [place] [address] PCP - General General Internal Medicine 07/30/1902/24 documented as of this encounter
--- OUTSIDE RECORDS SUMMARY | 2024-05-20 00:22 | XMS_ITS | Encounter Summary ---
Author Organization [facility] Address [address] [place] [address] Care Team Providers Care Music Specialist Name Role Phone None, Provider Primary Care Provider Unavailabl e Encounter Details Date Type Department Care Team (Late st Contact Info) Description 01/12/2024 Lab Requisition [facility] Pathology & Laboratory Medicine - [facility] [address] [place], [place] [address] Outr Resulting Lab, Provider Social History Tobacco [...] Procedure Name Priority Date/Time Associated Diagnosis Comments DOUBLE STRANDED DNA ANTIBODY, IGG Routine 01/12/2024 16:54 EDT documented in this encounter Results * DOUBLE STRANDED DNA ANTIBODY, IGG (01/12/2024 16:54 EDT) dsDNA Ab, IgG <22.0 <27.0 IU/mL 01/13/2024 14:51 EDT [facility] Comment: Negative: <27.0 IU/mL Indeterminate: 27.0 - 35.0 IU/mL Positive: >35.0 IU/mL Results were obtained with [employer] QUANTA Flash dsDNA chemiluminescent immunoassay. Values obtained with different manufacturers' assay methods may not be used interchangeably. Blood VENOUS BLOOD / Unknown 01/12/2024 16:54 EDT 01/12/2024 21:17 EDT Provider Outr Resulting Lab IMMUNOLOGY A ND SEROLOGY ORDERABLES [facility] [address] [place], [place] [id number] documented in this encounter Visit Diagnoses Not on filedocumented in this encounter Care Teams Music Specialist Relationship Specialty Start Date End Date None, Provider PCP - General 05/21/21 documented as of this encounter
--- OUTSIDE RECORDS SUMMARY | 2024-05-20 00:22 | XMS_ITS | Referral Summary ---
Author Organization [facility] Address [address] [place] [address] Care Team Providers Care Quarter Section Ironer Name Role Phone None, Provider Primary Care Provider Unavailabl e Encounters Date Type Department Care Team Description 04/19/2024 Lab Requisition [facility] Pathology & Laboratory [address] [address] Fabricio Brooks MD Encounter for other general examination 02/24/2024 Lab Requisition [facility] Pathology & Laboratory [address] [address] Fabricio Brooks MD Encounter for other general examination from Last 3 Months Allergies No known active allergies Medications No known medications Social History Tobacco Use Types Packs/Day Years [...] Mass Index - - Plan of Treatment Not on file Procedures Procedure Name Priority Date/Time Associated Diagnosis [...] explore management options, if applicable. 04/23/2024 14:10 [facility] Final Diagnosis A. SOFT TISSUE, RIGHT HIP, ? LIPOMA? , EXCISION: - Consistent with lipoma. (see comment) 04/23/2024 14:10 [facility] Diagnosis Comment Histologic examination reveals a lobulated proliferation of mature adipocytes. There is no significant nuclear atypia within adipocytes or stroma cells. 04/23/2024 14:10 [facility] Attestation There was significant resident/fellow involvement in the diagnostic evaluation of this case. By the signature below, the attending physician certifies that they have personally conducted a gross and/or microscopic examination of the described specimens and rendered or confirmed the above diagnosis. 04/23/2024 14:10 [facility] at 1410 Clinical History Subcutaneous lipoma (right hip) 04/23/2024 14:10 [facility] Gross Description A. Received [...] surface without evidence of hemorrhage or necrosis. [employer] P[employer] Tester sections are submitted in A1-A3. ANAY DOWLING(ASCP) 04/20/2024 8:41 04/23/2024 14:10 [facility] Resident/Brennan w: Juanis Samson MD PhD 04/23/2024 14:10 EDT [facility] Performing Lab [facility] 04/23/2024 14:10 EDT [facility] Scanned Images 04/23/2024 14:10 EDT [facility] Tissue SOFT TISSUE / Unknown 04/19/2024 8:50 EDT 04/20/2024 6:47 EDT Fabricio Brooks MD PATHOLOGY ORDERA ANNEL [facility] [address] [place], [place] [id number] from Last 3 Months Care Teams Quarter Section Ironer Relationship Specialty Start Date End Date None, Provider PCP - General 05/21/21
--- OUTSIDE RECORDS SUMMARY | 2024-05-20 00:22 | XMS_ITS | Encounter Summary ---
Author Organization [facility] Address [address] [place] [address] Care Team Providers Care Mcat Instructor Name Role Phone Unavailable Primary Care Provider Unavailabl e Encounter Details Date Type Department Care Team (Late st Contact Info) Description 06/27/2000 Results Only [facility] [address] [place] [address] Izabella Mabry MD [address] [place] [address] Social History Tobacco Use Types [...] Priority Date/Time Associated Diagnosis Comments CYTOPATHOLOGY Routine 06/27/2000 0:00 EDT documented in this encounter Results * CYTOPATHOLOGY (06/27/2000 0:00 EDT) Pathology Report: CYTOPATHOLOGY REPORT Reports generated via electronic interface contain original data; however they are lacking the format of the original report. Caution should be taken when reading/interpreti ng unformatted reports. Name: ? CARRIE AMBROSE ? Accession #: ? [id number] : ? 1970 (Age: 30) ??F ?Collect Date: ? 06/27/2000 Location: ? [facility] ? Receive Date: ? 07/02/2000 Provider: ?IZABELLA MABRY MD Copy to: ? Specimen/Source: ?Conventional Pap Test, Cervix/Endocervix Last Menstrual Period: ? 06/20/00 ? SPECIMEN ADEQUACY ? Satisfactory for evaluation but limited by obscuring inflammation. GENERAL CATEGORIZATION ? Within Normal Limits ? Document reviewed and electronically signed by: ? Aydee Gayle, ??SCT(ASCP) ? Report Date: ??07/02/2000 12:29 End of Report ANJALI HACKETT 06/27/2000 07/02/2000 Izabella Mabyr MD PATHOLOGY ORDERABLES [facility] HACKETT [address] [place] [address] documented in this encounter Visit Diagnoses Not on filedocumented in this encounter
--- OUTSIDE RECORDS SUMMARY | 2024-05-20 00:22 | XMS_ITS | Encounter Summary ---
Author Organization [facility] Address [address] [place] [address] Care Team Providers Care Documentation Clerk Name Role Phone Unknown, Provider Primary Care Provider [phone] Encounter Details Date Type Department Care Team (Late st Contact Info) Description 10/13/2015 Results Only [facility] [phone] Shola Hagen, [address] [id number] Social History Tobacco Use Types Packs/Day Years Used Date Smoking Tobacco: Never Assessed Sex and Gender Information Value Date Recorded Sex Assigned at Not on file Gender Identity Not on file Sexual Orientation Not on file documented as of this encounter Plan of Treatment Not on file documented as of this encounter Procedures Procedure Name Priority Date/Time Associated Diagnosis Comments PAP TEST- RESULT ONLY Routine 10/13/2015 0:00 EST documented in this encounter Results * PAP TEST- RESULT ONLY (10/13/2015 0:00 EST) Pathology Report: CYTOPATHOLOGY REPORT Reports generated via electronic interface contain original data; however they are lacking the format of the original report. Caution should be taken when reading/interpret ing unformatted reports. Name: ? CARRIE AMBROSE ? Accession #: ? [id number] ? : ? 1970 (Age: 45) ??F ?Collect Date: ? 10/13/2015 ? Location: ? [facility] ? Receive Date: ? 10/16/2015 ? Provider: SHOLA HAGEN NMW Copy to: ? Final Report SPECIMEN ADEQUACY ? Satisfactory for Evaluation - transformation zone component present GENERAL CATEGORIZATION ? Epithelial Cell Abnormality INTERPRETATION ? Squamous Cell Abnormality - Atypical squamous cells, undetermined significance (ASC-US). EDUCATIONAL NOTES/RECOMMENDAT IONS ? [facility] recommends following ASCCP's 2012 Updated Consensus Guidelines for the Management of Abnormal Cervical Cancer Screening Tests and Cancer Precursors (JLGTD, 2013; 17(5):S1-S27). ??Consensus guidelines are available online at www.asccp.org. Last Menstrual Period: 09/21/15 Other: Additional clinical information: Previous Paps WNL: 08/03, 09/05 Specimen/Source: ??Pap Test, Cervix/Endocervix , ThinPrep Imaging System with manual evaluation Document reviewed and electronically signed by: ? TITA BARROSO MD [facility] ? Report ??Date: 10/23/2015 10:57 HPV with Pap Test ? Date Ordered: ? 10/23/2015 ? Status: ?? Signed Out ?Date Complete: ? 10/25/2015 ? By: ??System Interface ? Date Reported: ? 10/25/2015 ? Interpretation RESULT: Negative for HPV. No E6 or E7 mRNA is detected from HPV types 16,18,31,33,35, 39,45,51,52,56,58 ,59,66, and 68 by logistic manager mediated amplification. Comments Document reviewed and electronically signed by: ? System Interface ? Report date: 10/25/2015 By the signature above, the attending physician certifies that he/she has personally conducted a gross and/or microscopic examination of the described specimens and rendered or confirmed the above diagnosis. End of Report [facility] 10/13/2015 10/16/2015 Shola Hagen [facility] PATHOLOGY ORDERA SUJATHAS [facility] [address] [place] [address] documented in this encounter Visit Diagnoses Not on filedocumented in this encounter Care Teams Documentation Clerk Relationship Specialty Start Date End Date Unknown, Provider, PCP - General 10/13/15 05/20/21 documented as of this encounter
--- OUTSIDE RECORDS SUMMARY | 2024-05-20 00:22 | XMS_ITS | Encounter Summary ---
Author Organization [facility] Address [address] [place] [address] Care Team Providers Care Tourist Home Keeper Name Role Phone Unknown, Provider Primary Care Provider Encounter Details Date Type Department Care Team (Latest Contact Info) Description 10/13/2015 11:46 EST - 10/13/2015 23:59 EST Hospital Encounter [address] [address] Unknown, Provider, Discharge Disposition: Home or Self Care Social History Tobacco Use Types Packs/Day Years Used Date Smoking Tobacco: Never Assessed Sex and Gender Information Value Date Recorded Sex Assigned at Not on file Gender Identity Not on file Sexual Orientation Not on file documented as of this encounter Discharge Disposition Disposition Code Departure Means Destination Home or Self Correction documented in this encounter Plan of Treatment Not on file documented as of this encounter Visit Diagnoses Not on filedocumented in this encounter Care Teams Tourist Home Keeper Relationship Specialty Start Date End Date Unknown, Provider, PCP - General 10/13/15 05/20/21 documented as of this encounter
--- OUTSIDE RECORDS SUMMARY | 2024-05-20 00:22 | XMS_ITS | Encounter Summary ---
Author Organization [facility] [place] [address] Care Team Providers Care Baby Sitter Name Role Phone Pao Orellana Primary Care Provider Encounter Details Date Type Department Care Team (Late st Contact Info) Description 07/16/2019 1:00 PM EDT Ancillary Procedure [place] [phone] Kris Vang, [address] [phone] Breast mass Social History Tobacco Use Types Packs/Day Years [...] Scheduled View Only Obstetrics [place] [address] Nurse, Theresa EATON, RN 08/03/2024 11:00 AM EDT Office Visit Obstetrics [place] [address] Elvia Renee MD [facility] [place] [address] documented as of this encounter Procedures Procedure Name Priority Date/Time Associated Diagnosis Comments REQUEST FOR 2ND READ MAMMO Routine 07/16/2019 12:45 PM EDT Breast mass documented in this encounter Results * Request for 2nd read Mammo (07/16/2019 12:45 PM EDT) Anatomical Region Laterality Modality SO Impressions 07/16/2019 2:00 PM EDT Left breast: Hypoechoic mass, from outside ultrasound, after whole breast screening ultrasound, as above. Left breast lesion 1, 4:00, 4 cm from the nipple. Most recent mammography from January 2019. Right breast: Hypoechoic mass at approximately 10:30, 7 cm from the nipple, as above. Right breast lesion 1. Most recent mammography from January 2019. RECOMMENDATION: Left breast: Repeat ultrasound for further characterization of left breast lesion 1. Right breast: Repeat ultrasound for further characterization of right breast lesion 1. Consider ultrasound-guided biopsy at that juncture. Left breast: BI-RADS 0, incomplete, additional evaluation is required. Right breast: BI-RADS 0, incomplete, additional evaluation is required. Please note: The interpretation of the [facility] Breast Imaging Radiologist subspecialist may differ from the original radiologists interpretation. This is usually not due to a deficiency of the original interpreting radiologist, rather due to the greater skill level afforded by sub-specialization in the field and/or reasonable variations in interpretations. If you have a concern regarding the [facility] interpretation you may contact the [facility] Breast Bridges Supervisor Office at . Thank you for letting us participate in the care of this patient. For questions regarding this report, please contact the number below. ? Narrative 07/16/2019 2:00 PM EDT INTERPRETATION OF OUTSIDE BREAST IMAGING I have been asked to consult on this patient by Dr. Vang because he believes a review of this study may change or alter the care of this patient. STUDIES FROM: [facility] DATES: 07/14/2019, 07/07/2019. TYPE OF EXAM: Static outside ultrasound images. CLINICAL HISTORY: BILAT BR MASSES, CAT 4; ?MORE IMAGING ?BIOPSY; What Modality is the exam? Ultrasound; Body Part (please add comments as necessary): BREAST; I believe a reinterpretation of this exam may alter care of Patient. Yes. ?? COMPARISONS: 02/05/2019, multiple comparisons. TECHNIQUE: Static outside images, outside facility, ultrasound is benzol operator dependent, for review not for primary interpretation. FINDINGS: MAMMOGRAPHY: Most recent mammography was accomplished, January 2019. ULTRASOUND: Left breast: Static images are labeled left breast 4:00, 4 cm from the nipple, and demonstrate a parallel mass which measures 0.8 x 0.8 x 0.5 cm with macrolobulations, echogenic rim is not well-visualized. Right breast: At approximately 10:30, 7 cm from the nipple, there is a parallel hypoechoic mass which measures 1.4 x 1.3 x 0.6 cm. Echogenic margin is suggested. Mild acoustic enhancement. Procedure Note Juan Mcconnell MD - 07/16/2019 INTERPRETATION OF OUTSIDE BREAST IMAGING I have been asked to consult on this patient by Dr. Vang because hebelieves a review of this study may change or alter the care of this patient. STUDIES FROM: [facility] DATES: 07/14/2019, 07/07/2019. TYPE OF EXAM: Static outside ultrasound images. CLINICAL HISTORY: BILAT BR MASSES, CAT 4; ?MORE IMAGING ?BIOPSY; WhatModality is the exam? Ultrasound; Body Part (please add comments as necessary):BREAST; I believe a reinterpretation of this exam may alter care of Patient. Yes. COMPARISONS: 02/05/2019, multiple comparisons. TECHNIQUE: Static outside images, outside facility, ultrasound isoperator dependent, for review not for primary interpretation. FINDINGS: MAMMOGRAPHY: Most recent mammography was accomplished, January 2019. ULTRASOUND: Left breast: Static images are labeled left breast 4:00, 4 cm from thenipple, and demonstrate a parallel mass which measures 0.8 x 0.8 x 0.5 cm with macrolobulations, echogenic rim is not well-visualized. Right breast: At approximately 10:30, 7 cm from the nipple, there is aparallel hypoechoic mass which measures 1.4 x 1.3 x 0.6 cm. Echogenic margin is suggested. Mild acoustic enhancement. IMPRESSION Left breast: Hypoechoic mass, from outside ultrasound, after wholebreast screening ultrasound, as above. Left breast lesion 1, 4:00, 4 cm fromthe nipple. Most recent mammography from January 2019. Right breast: Hypoechoic mass at approximately 10:30, 7 cm from thenipple, as above. Right breast lesion 1. Most recent mammography from January 2019. RECOMMENDATION: Left breast: Repeat ultrasound for further characterization of leftbreast lesion 1. Right breast: Repeat ultrasound for further characterization of rightbreast lesion 1. Consider ultrasound-guided biopsy at that juncture. Left breast: BI-RADS 0, incomplete, additional evaluation is required. Right breast: BI-RADS 0, incomplete, additional evaluation is required. Please note: The interpretation of the [facility] BreastImaging Radiologist subspecialist may differ from the original radiologists interpretation. This is usually not due to a deficiency of the original interpreting radiologist, rather due to the greater skill level affordedby sub-specialization in the field and/or reasonable variations ininterpretations. If you have a concern regarding the [facility] interpretation [facility] at . Thank you for letting us participate in the care of this patient. Forquestions regarding this report, please contact the number below. Kris Vang DO IMG OUTSIDE INTERPRE TATION ORDERABLES documented in this encounter Visit Diagnoses Diagnosis Breast mass Lump or mass in breast documented in this encounter Care Teams Baby Sitter Relationship Specialty Start Date End Date Pao Orellana PA [address] [place] [address] [place] [address] PCP - General General Internal Medicine 04/09/1707/29/19 documented as of this encounter
--- OUTSIDE RECORDS SUMMARY | 2024-05-20 00:22 | XMS_ITS | Encounter Summary ---
Author Organization [facility] [place] [address] Care Team Providers Care Dividing Machine Operator Helper Name Role Phone Pao Orellana Primary Care Provider Encounter Details Date Type Department Care Team (Late st Contact Info) Description 05/27/2019 Ancillary Procedure [place] [address] Juan Mcconnell MD [facility] [place] [address] Social History Tobacco Use Types Packs/Day Years [...] Scheduled View Only Obstetrics [place] [address] Nurse, Theresa EATON, RN 08/03/2024 11:00 AM EDT Office Visit Obstetrics [place] [address] Elvia Renee MD [facility] [place] [address] documented as of this encounter Procedures Procedure Name Priority Date/Time Associated Diagnosis Comments FILM LIBRARY STORAGE ONLY ULTRASOUND STUDY Routine 05/27/2019 12:00 AM EDT documented in this encounter Results * Film Library- Storage Only Ultrasound Study (05/27/2019 12:00 AM EDT) Narrative RAD - 07/16/2019 12:04 PM EDT This exam is auto-finalizing. It's purpose is for storage only. Juan Mcconnell MD [facility] FILM LIBRARY ORD ERABLES [place], [place] documented in this encounter Visit Diagnoses Not on filedocumented in this encounter Care Teams Dividing Machine Operator Helper Relationship Specialty Start Date End Date Pao Orellana PA [address] [place] [address] [place] [address] PCP - General General Internal Medicine 04/09/1707/29/19 documented as of this encounter
--- OUTSIDE RECORDS SUMMARY | 2024-05-20 00:22 | XMS_ITS | Encounter Summary ---
Author Organization [facility] [place] [address] Care Team Providers Care Ore Buyer Name Role Phone Kris Vang DO Primary Care Provider [phone] Encounter Details Date Type Department Care Team (Latest Contact Info) Description 12/10/2019 10:00 AM EST - 12/10/2019 11:59 PM EST Hospital En[place] [address] Vicki Garcia MD [facility] [address] Abnormal ultrasound of breast Discharge Disposition: Home Social History [...] Scheduled View Only Obstetrics [place] [address] Nurse, Theresa EATON, RN 08/03/2024 11:00 AM EDT Office Visit Obstetrics [place] [address] Elvia Renee MD [facility] [place] [address] documented as of this encounter Procedures Procedure Name Priority Date/Time Associated Diagnosis Comments MAMMO BREAST US LIMITED BILATERAL Routine 12/10/2019 10:37 AM EST Abnormal ultrasound of breast documented in this encounter Results * US Breast Limited Bilat (12/10/2019 10:37 AM EST) Anatomical Region Laterality Modality Breast Bilateral Mammography Impressions 12/10/2019 12:24 PM EST Stable benign appearing bilateral masses, at right breast 10:30 radian 7 cm from the nipple and left breast 4:00 radian 4 cm from the nipple. Recommend short-term follow-up ultrasound in 8 months, in an attempt to document 12 month stability. Findings were communicated with the patient. Appointment for follow-up bilateral ultrasound and bilateral mammogram were made prior to the patient leaving the facility. BI-RADS Category 3: Probably Benign Finding-short interval follow-up or continued surveillance mammography I have personally reviewed the image(s) and the resident's interpretation and agree with the findings, Juan Mcconnell at 12/10/2019 12:24 PM Thank you for letting us participate in the care of this patient. For questions regarding this report, please contact the number below. ? Narrative 12/10/2019 12:24 PM EST EXAMINATION: US ??BREAST LIMITED BILATERAL CLINICAL HISTORY: 4 month f/u bilateral 49-year-old female. TECHNIQUE: High-resolution targeted ultrasound. COMPARISON: Breast ultrasound 07/30/2019 FINDINGS: Stable benign-appearing nonpalpable hypoechoic well-circumscribed structures with mild posterior acoustic enhancement. The right breast demonstrates a homogeneously hypoechoic circumscribed mass at 10:30 radian, 7 cm from the nipple, measuring 1.1 cm in maximal diameter. The left breast at 4:00 radian, 4 cm from the nipple demonstrates a hypoechoic mass with a adjacent satellite structure, measuring 0.8 cm in maximal diameter, similar to prior. Vicki Garcia MD IMG MAMMO ORDERABL ES documented in this encounter Visit Diagnoses Diagnosis Abnormal ultrasound of breast Other (abnormal) findings on radiological examination of breast documented in this encounter Care Teams Ore Buyer Relationship Specialty Start Date End Date Kris Vang DO [address] [place] [address] [place] [phone] PCP - General General Internal Medicine 07/30/1902/24 documented as of this encounter
--- OUTSIDE RECORDS SUMMARY | 2024-05-20 00:22 | XMS_ITS | Encounter Summary ---
Author Organization [facility] Address [address] [place] [address] Care Team Providers Care Loan Interviewer Name Role Phone Unknown, Provider Primary Care Provider [phone] Encounter Details Date Type Department Care Team (Late st Contact Info) Description 01/14/2019 Results Only [facility] [phone] Shola Josue, [address] [id number] Social History Tobacco Use Types Packs/Day Years [...] Diagnosis Comments PAP TEST- RESULT ONLY Routine 01/14/2019 0:00 EDT documented in this encounter Results * PAP TEST- RESULT ONLY (01/14/2019 0:00 EDT) Pathology Report: CYTOPATHOLOGY REPORT Reports generated via electronic interface contain original data; however they are lacking the format of the original report. Caution should be taken when reading/interpreti ng unformatted reports. Name: ? CARRIE AMBROSE ? Accession #: ? [id number] ? : ? 1970 (Age: 48) ??F ?Collect Date: ? 01/14/2019 ? Location: ? [facility] ? Receive Date: ? 01/15/2019 ? Provider: SHOLA JOSUE NMW Copy to: ? Final Report SPECIMEN ADEQUACY ? Satisfactory for Evaluation - transformation zone component present GENERAL CATEGORIZATION ? Other, see interpretation INTERPRETATION ? Reactive cellular changes associated with inflammation present (includes repair). Endometrial cells present in a woman equal to or greater than age 45. Negative for Intraepithelial Lesion. EDUCATIONAL NOTES/RECOMMENDATI ONS ? ASCCP management guidelines advises using histologic endometrial assessment only in postmenopausal women. Benign appearing endometrial cells on Pap tests are usually a normal finding in women with regular menstrual cycles, especially if the Pap test was collected during the first half of the menstrual cycle. There is data showing that endometrial cells on Pap tests may be associated with endometrial/uterin e abnormalities in post menopausal women or in perimenopausal women with abnormal bleeding. There is limited data on the significance of benign endometrial cells in post menopausal women on HRT. ??Clinical correlation is recommended. Note: ??The Pap test is not an accurate test for the screening of endometrial lesions and should not be used as a follow up in patients with clinical suspicion of endometrial pathology. Hormonal/Contracep tive status: None Previous Gynecologic Pathology: ASC-US: 10/10, NEG Other: Additional clinical information: Z01.419 Z11.51 Specimen/Source: ??Pap Test, Cervix/Endocervix, ThinPrep Imaging System with manual evaluation Document reviewed and electronically signed by: ? KADI OCONNOR MD ? Report ??Date: 01/20/2019 16:00 HPV with Pap Test ? Date Ordered: ? 01/20/2019 ? Status: ?? Signed Out ?Date Complete: ? 01/21/2019 ? By: ??System Interface ? Date Reported: ? 01/21/2019 ? Interpretation RESULT: Negative for HPV. No E6 or E7 mRNA is detected from HPV types 16,18,31,33,35, 39,45,51,52,56,58, 59,66, and 68 by senior resident care director mediated amplification. Comments Document reviewed and electronically signed by: ? System Interface ? Report date: 01/21/2019 By the signature above, the attending physician certifies that he/she has personally conducted a gross and/or microscopic examination of the described specimens and rendered or confirmed the above diagnosis. End of Report [facility] 01/14/2019 01/15/2019 Shola Josue [facility] ORDERA ANNEL [facility] [address] [place] [address] documented in this encounter Visit Diagnoses Not on filedocumented in this encounter Care Teams Loan Interviewer Relationship Specialty Start Date End Date Unknown, Provider, PCP - General 10/13/15 05/20/21 documented as of this encounter
--- OUTSIDE RECORDS SUMMARY | 2024-05-20 00:22 | XMS_ITS | Encounter Summary ---
Author Organization [facility] [place] [address] Care Team Providers Care Postal Clerk Name Role Phone Pao Orellana Primary Care Provider Encounter Details Date Type Department Care Team (Late st Contact Info) Description 07/07/2019 Ancillary Procedure [place] [address] Juan Mcconnell MD [facility] [place] [address] Social History Tobacco Use Types Packs/Day Years [...] Scheduled View Only Obstetrics [place] [address] Nurse, Theresa EATON, RN 08/03/2024 11:00 AM EDT Office Visit Obstetrics [place] [address] Elvia Renee MD [facility] [place] [address] documented as of this encounter Procedures Procedure Name Priority Date/Time Associated Diagnosis Comments FILM LIBRARY-STORAGE ONLY US BREAST Routine 07/07/2019 12:00 AM EDT documented in this encounter Results * Film Library Storage Only US Breast (07/07/2019 12:00 AM EDT) Narrative RAD - 07/16/2019 12:01 PM EDT This exam is auto-finalizing. It's purpose is for storage only. Juan Mcconnell MD G FILM LIBRARY ORD ERABLES [place], [place] documented in this encounter Visit Diagnoses Not on filedocumented in this encounter Care Teams Postal Clerk Relationship Specialty Start Date End Date Pao Orellana PA [address] [place] [address] [place] [address] PCP - General General Internal Medicine 04/09/1707/29/19 documented as of this encounter
--- OUTSIDE RECORDS SUMMARY | 2024-05-20 00:22 | XMS_ITS | Encounter Summary ---
[place] [address] Care Team Providers Care Manager Of Patient Name Role Phone Paco Jordan MD Primary Care Provider [phone] Encounter Details Date Type Department Care Team (Late st Contact Info) Description 03/12/2017 Ancillary Procedure [place] [address] Juan Mcconnell MD [facility] [place] [address] Social History Tobacco Use Types Packs/Day Years [...] Scheduled View Only Obstetrics [place] [address] Nurse, Theresa EATON, RN 08/03/2024 11:00 AM EDT Office Visit Obstetrics [place] [address] Elvia Renee MD [facility] [address] [place] [address] documented as of this encounter Procedures Procedure Name Priority Date/Time Associated Diagnosis Comments FILM LIBRARY STORAGE ONLY MAMMO Routine 03/12/2017 12:00 AM EDT documented in this encounter Results * Film Library- Storage Only Mammo (03/12/2017 12:00 AM EDT) Narrative RAD - 07/16/2019 11:54 AM EDT This exam is auto-finalizing. It's purpose is for storage only. Juan Mcconnell MD IMG FILM LIBRARY ORD ERABLES [place], [place] documented in this encounter Visit Diagnoses Not on filedocumented in this encounter Care Teams Manager Of Patient Relationship Specialty Start Date End Date Paco Jordan MD [address] [place] [address] [place] [address] PCP - General 09/18/10 04/08/17 documented as of this encounter
--- OUTSIDE RECORDS SUMMARY | 2024-05-20 00:22 | XMS_ITS | Encounter Summary ---
Author Organization [facility] [place] [address] Care Team Providers Care Numerical Tool Programmer Name Role Phone Paco Jordan MD Primary Care Provider [phone] Encounter Details Date Type Department Care Team (Late st Contact Info) Description 03/12/2017 12:05 AM EDT Ancillary Procedure [place] [address] Juan Mcconnell MD [facility] [place] [address] Social History Tobacco Use Types Packs/Day Years [...] Scheduled View Only Obstetrics [place] [address] Nurse, Theresa EATON, RN 08/03/2024 11:00 AM EDT Office Visit Obstetrics [place] [address] Elvia Renee MD [facility] [place] [address] documented as of this encounter Procedures Procedure Name Priority Date/Time Associated Diagnosis Comments FILM LIBRARY-STORAGE ONLY US BREAST Routine 03/12/2017 12:05 AM EDT documented in this encounter Results * Film Library Storage Only US Breast (03/12/2017 12:05 AM EDT) Narrative RAD - 07/16/2019 11:56 AM EDT This exam is auto-finalizing. It's purpose is for storage only. Juan Mcconnell MD G FILM LIBRARY ORD ERABLES [place], [place] documented in this encounter Visit Diagnoses Not on filedocumented in this encounter Care Teams Numerical Tool Programmer Relationship Specialty Start Date End Date Paco Jordan MD [address] [place] [address] [place] [address] PCP - General 09/18/10 04/08/17 documented as of this encounter
--- OUTSIDE RECORDS SUMMARY | 2024-05-20 00:22 | XMS_ITS | Encounter Summary ---
Author Organization [facility] [place] [address] Care Team Providers Care Hand Mexican Food Maker Name Role Phone Paco Jordan MD Primary Care Provider [phone] Encounter Details Date Type Department Care Team (Late st Contact Info) Description 08/12/2016 Ancillary Procedure [place]iology [place] [address] Juan Mcconnell MD [facility] [place] [address] Social History Tobacco Use Types Packs/Day Years [...] Scheduled View Only Obstetrics [place] [address] Nurse, Theresa EATON, RN 08/03/2024 11:00 AM EDT Office Visit Obstetrics [place] [address] Elvia Renee MD [facility] [address] [place] [address] documented as of this encounter Procedures Procedure Name Priority Date/Time Associated Diagnosis Comments FILM LIBRARY STORAGE ONLY MAMMO Routine 08/12/2016 12:00 AM EDT documented in this encounter Results * Film Library- Storage Only Mammo (08/12/2016 12:00 AM EDT) Narrative RAD - 07/16/2019 11:50 AM EDT This exam is auto-finalizing. It's purpose is for storage only. Juan Mcconnell MD IMG FILM LIBRARY ORD ERABLES [place], [place] documented in this encounter Visit Diagnoses Not on filedocumented in this encounter Care Teams Hand Mexican Food Maker Relationship Specialty Start Date End Date Paco Jordan MD [address] [place] [address] [place] [address] PCP - General 09/18/10 04/08/17 documented as of this encounter
--- OUTSIDE RECORDS SUMMARY | 2024-05-20 00:22 | XMS_ITS | Encounter Summary ---
Author Organization [facility] Address [facility] [place] [address] Care Team Providers Care Physical Medicine Specialist Name Role Phone Pao Orellana Primary Care Provider Reason for Visit * Reason Comments Skin Check Skin Lesion * Consultation (Routine) - Closed Specialty Diagnoses / Procedures Referred By Reji carey Referred To Contact Dermatology Diagnoses Moles on neck Pao Orellana PA [address] [place] [address] [facility] [address] [place] [address] Referral ID Status Reason Start Date Expiration Date V isits Requested Visits Authorized [id number] Closed Consult, Test & Treat Connection [facility] 04/10/2017 04/10/2018 1 1 Encounter Details Date Type Department Care Team (Late st Contact Info) Description 07/04/2017 4:00 PM EDT Office Visit Dermatology at [facility] [address] [place] [address] Fer Cortez MD [facility] DR BRIANNA PALACIOS[place] [address] Neoplasm of uncertain behavior of skin; Inflamed skin tag; Dermatofibroma; Seborrheic keratosis; Hernandez angioma Social History Tobacco Use Types Packs/Day Years Used Date Smoking Tobacco: Never Smokeless Tobacco: Never Sex and Gender Information Value Date Recorded Sex Assigned at Not on file Gender Identity Not on file Sexual Orientation Not on file documented as of this encounter Patient Instructions * Patient Instructions* Jaimie Schafer - 07/04/2017 4:00 PM EDT Instructions for Carrie: Treatment and Wound Care Instructions Your treatment today: You have had a shave biopsy of your skin, which is a removal of tissue for examination under a microscope. This wound will heal without stitches. Allow 3-6 weeks for the wound to heal. If bleeding occurs, hold firm pressure against the wound for 15 minutes. If bleeding continues, calls the office or go to your local emergency room. Please allow 1-2 weeks for the biopsy results to return. Your physician or nurse will contact you with the results by phone or letter; follow-up will be discussed at that time. Wound Care Instructions: You will need to keep the dressing placed over the wound dry and intact for 24 hours. Afterwards, perform the following wound care daily: ?? Wash your hands before changing the dressing. ?? Remove the bandage and clean the area with mild soap and water, then gently pat the area dry. ?? Apply a small amount of Vaseline to the area, then cover the wound with a band-aid. Change your dressing daily until the wound is fully healed. ?? A small amount of yellow drainage is part of normal healing. The area might appear as a small depression with redness around the edge of the wound. This is normal. ?? Please contact the office you you notice any of the following signs of infection: increased tenderness, pain, drainage, or redness that becomes hot or hard around the wound. If you have further questions or concerns, please call the office at [phone]. If it is after 5PM, or a holiday or weekend, please call [phone] and ask for the Software Sales Manager on-call. documented in this encounter Progress Notes * Fer Cortez - 07/04/2017 4:00 PM EDT Images from the original note were not included. DERMATOLOGY - NEW PATIENT NOTE Date of service: 07/04/2017 Carrie Cobos : 1970, 47 y.o. Chief Complaint: Chief Complaint Patient presents with ??? Skin Check HPI: Carrie Cobos is a 47 y.o. female referred by ANAY Manley with the following concerns: She states she has a concern with a mole on the left side of the neck that gets caught on her necklace, seatbelt and shower scrubber. Severity 12/06. She has an area on her right leg that PCP said looks normal but would like reassurance. Relevant Skin History: - Okay to leave detailed message with results? 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 No current facility-administered medications for this visit. Allergies: Allergies not on file Review of Systems: - General: Feels well. - Skin: No other skin concerns. Examination: - Constitutional: Patient was alert, well-appearing and in no noticeable distress. - Skin: Skin examination of the scalp, face, ears, neck, back, chest, axillae, abdomen, right and left upper extremities, right and left lower extremities, hands, feet, and buttocks was normal with the exception of the findings listed below. Genitalia not examined. Diagnosis/Skin findings/Assessment/Plan: 1. Atypical Nevi vs r/o Atypia - right posterior thigh: 4.0 x 5.0 mm slightly irregular medium brown papule. - Joint decision to remove today and sent to pathology - I discussed warning signs for skin cancer, including the ABCDE's of melanoma. Procedure: Skin shave removal Location: right posterior thigh Discussed indications for procedure and expectations including risks and benefits. Verbal consent obtained. Skin prep with alcohol. Local anesthesia with 1% xylocaine, 1/100,000 epinephrine. The entire skin lesion was removed by shave technique to the level of the dermis and submitted to Pathology.Hemostasis obtained (AlCl). There were no complications; the pt. tolerated the procedure well. The wound was dressed. Post-procedure expectations, wound care and activity restrictions were reviewed. Follow-up based on pathology results. 2. Irritated Skin Tag - left neck: flesh colored papule on a stalk. Patient reports irritation withnecklace, shirt collars, etc. -Scissor excision. After lidocaine anesthesia, each inflamed or irritated skin tag was excised withscissors, cauterized as needed and covered with a band aid as needed. 3. Dermatofibroma - right lateral thigh: firm papule, centrally raised and sclerotic, with peripheral hyperpigmentation and dimpling with lateral pressure. -Patient reassured. 4. Seborrheic Keratoses - scattered: multiple 0.4-0.6cm brown papules with waxy, stuck-on appearance. -Patient reassured. 5. Hernandez Angiomas - breast, thighs: multiple 0.2-0.4cm bright red, well- demarcated papules -Patient reassured. RTC: based on pathology results, otherwise June 2018 for full skin exam The following photos were obtained with patient consent: Note initiated by SANDRA ISLAS LPN. Clinical scribe: Jaimie Schafer - I am documenting this encounter acting as the scribe for and inthe presence of Fer Cortez MD. I performed the above scribed service and agree with the accuracy of the documentation in this encounter. Reviewed and signed by Fer Cortez MD Resident in Dermatology [facility] Patient seen in conjunction with staff smoking pipe mounter: Tracy Geiger MD Section of Dermatology [facility] * Evelyn Geiger MD - 07/04/2017 4:00 PM EDT I directly supervised Dr. Fer Cortez during this office visit. Dr. Cortez presented the history and physical exam to me. I then saw and examined this patient with Dr. Cortez. We reviewed the history and pertinent details and I confirmed the physical findings. I agree with the details of the history and physical exam as documented in Dr. Cortez's note. EVELYN GEIGER MD Staff Physician documented in this encounter Plan of Treatment Upcoming Encounters Date Type Department Care Team (Late st Contact Info) Description 08/03/2024 10:45 AM EDT Scheduled View Only Obstetrics [place] [address] Nurse, Theresa EATON RN 08/03/2024 11:00 AM EDT Office Visit Obstetrics [place] [address] Elvia Renee MD [facility] [place] [address] documented as of this encounter Procedures Procedure Name Priority Date/Time Associated Diagnosis Comments SPECIMEN TO PATHOLOGY (NON-OR) Routine 07/04/2017 4:33 PM EDT Neoplasm of uncertain behavior of skin SURGICAL PATHOLOGY REPORT Routine 07/04/2017 4:33 PM EDT documented in this encounter Results * Surgical Pathology Report (07/04/2017 4:33 PM EDT) FINAL DIAGNOSIS (AP) [id number] ? Location: [facility] The signing pathologist has (i) examined the relevant preparation(s) for the specimen(s) and (ii) rendered or confirmed the diagnosis(es). . ?Surgical Pathology DIAGNOSIS Skin, right posterior thigh, shave removal: - ??Compound melanocytic nevus with congenital-type features, present at the base of the specimen Electronically signed by: ??Carlie DIAZ, Umair Joe Verified: ??07/07/2017 ?Dermatopathol ogist CLINICAL INFORMATION Specimen Submitted: A - Skin, right posterior thigh, shave removal (1) Clinical History: 4 x 5 mm irregular brown papule Clinical Diagnosis: Nevus rule out atypia SPECIMEN PROCESSING A - Labeled/Fixativ e: Right posterior thigh, formalin. Quantity/Size: Single, 0.5 x 0.5 x 0.1 cm. Tissue Description: Shave of eight irregular brown skin papule. Sections/Proces sing: Inked and bisected. (T1) ??pau 07/07/2017 3:24 PM EDT [facility] 07/04/2017 4:33 PM EDT Fer Cortez MD PATHOLOGY/[place] [address] * Specimen to Pathology (NON-OR) (07/04/2017 4:33 PM EDT) AP Specimen 07/04/2017 4:33 PM EDT 07/04/2017 6:52 PM EDT Narrative [facility] - 07/04/2017 6:52 PM EDT Specimen requisition ordered. ??Separate Pathology report to follow Resulting Agency Comment Spec In Lab Evelyn Geiger MD PATHOLOGY/[place] [address] documented in this encounter Visit Diagnoses Diagnosis Neoplasm of uncertain behavior of skin Inflamed skin tag Unspecified hypertrophic and atrophic condition of skin Dermatofibroma Benign neoplasm of skin, site unspecified Seborrheic keratosis Other seborrheic keratosis Hernandez angioma Nevus, non-neoplastic documented in this encounter Care Teams Physical Medicine Specialist Relationship Specialty Start Date End Date Pao Orellana PA [address] [place] [address] [place] [address] PCP - General General Internal Medicine 04/09/1707/29/19 documented as of this encounter
--- OUTSIDE RECORDS SUMMARY | 2024-05-20 00:22 | XMS_ITS | Encounter Summary ---
Author Organization [facility] Address [address] [place] [address] Care Team Providers Care Nut Sorter Name Role Phone Unavailable Primary Care Provider Unavailabl e Encounter Details Date Type Department Care Team (Late st Contact Info) Description 08/20/2008 Before PRISM Converted Visit (Maple) [facility] - Maple conversion [address] [place] [address] Cheryl Harkins, RIGOBERTO [address] [place] [address],[address] [place] [address] Social History Tobacco Use Types [...] Priority Date/Time Associated Diagnosis Comments CYTOPATHOLOGY Routine 08/20/2008 0:00 EDT documented in this encounter Results * CYTOPATHOLOGY (08/20/2008 0:00 EDT) Pathology Report: CYTOPATHOLOGY REPORT ? Reports generated via electronic interface contain original data; ? however they are lacking the format of the original report. ? Caution should be taken when reading/interpreti ng unformatted reports. ? Name: ? GUILLETTE, CARRIE ? Accession #: ? [id number] ? : ? 1970 (Age: 38) ??F ?Collect Date: ? 08/20/2008 ? Location: ? [facility] ? Receive Date: ? 08/22/2008 ? Provider: ?CHERYL HARKINS [facility] ? Copy to: ? Specimen/Source: ?Pap Test, Endocervix, ThinPrep Imaging System with ? manual evaluation ? Last Menstrual Period: ? 09/08 ? Hormonal/Contracep tive Status: ? Tubal ligation ? Other: ? HPVA - HPV testing requested if ASC-US on the current ThinPrep Pap test. ? SPECIMEN ADEQUACY ? Satisfactory for Evaluation ? - transformation zone component present ? GENERAL CATEGORIZATION ? Negative for Intraepithelial Lesion or Malignancy ? Document reviewed and electronically signed by: ? Tamra Elaine, CT(ASCP) ? Report Date: ??08/24/2008 14:23 ? End of Report ? ANJALI HACKETT 08/20/2008 08/22/2008 Cheryl Harkins [facility] PATHOLOGY ORDERABLES [facility] [address] [place] [address] documented in this encounter Visit Diagnoses Not on filedocumented in this encounter
--- OUTSIDE RECORDS SUMMARY | 2024-05-20 00:22 | XMS_ITS | Encounter Summary ---
Author Organization [facility] Address [address] [place] [address] Care Team Providers Care Railroad Operator Name Role Phone None, Provider Primary Care Provider Unavailabl e Encounter Details Date Type Department Care Team (Late st Contact Info) Description 02/24/2024 Lab Requisition [facility] Pathology & Laboratory Medicine - [facility] [address] [place] [address] Fabricio Brooks MD [address] [place] [address] [place], [place] [id number] Encounter for other general examination Social History [...] Date/Time Associated Diagnosis Comments SURGICAL PATHOLOGY Today 02/24/2024 14 :20 EDT documented in this encounter Results * SURGICAL PATHOLOGY (02/24/2024 14:20 EDT) Note to Patient The following pathology results have been interpreted by your pathologist and may be available to you before your health provider has had the opportunity to review them. Please allow time for your provider to receive these results and explore management options, if applicable. 02/25/2024 14:57 EDT [facility] Final Diagnosis A. SKIN OF FOREHEAD, PUNCH BIOPSY: - Seborrheic keratosis, irritated and inflamed. 02/25/2024 14:57 [facility] Attestation By the signature below, the attending physician certifies that they have 1) personally conducted a gross and/or microscopic examination of the described specimen(s), and/or personally interpreted the results of laboratory testing of the described specimen(s), and 2) personally rendered or confirmed the above diagnosis. 02/25/2024 14:57 [facility] at 1457 Microscopic Description Orthohyperkeratosis and focal parakeratosis thicken the stratum corneum. There is formation of horn pseudocysts. The epidermis is hyperplastic with acanthosis and papillomatosis. The keratinocytes have a basaloid appearance with squamous eddies in many areas. Within the dermis, there is a moderately dense lymphohistiocytic infiltrate. The infiltrate extends into the epidermis with concomitant vacuolar change and keratinocyte necrosis. 02/25/2024 14:57 T [facility] Clinical History Skin lesion of forehead 02/25/2024 14:57 T [facility] Gross Description A. Received in formalin labelled with proper patient identification (initials G, T) and skin lesion of forehead 3 x 5 mm is a 0.5 cm child punch biopsy of skin excised to a depth of 0.5 cm which is inked, bisected entirely submitted in A1. ANAY DOWLING(ASCP) 02/25/2024 7:46 02/25/2024 14:57 EDT [facility] Performing Lab [facility] 02/25/2024 14:57 T [facility] Scanned Images 02/25/2024 14:57 [facility] Tissue SPECIMEN FROM SKIN / Unknown 02/24/2024 14:20 EDT 02/24/2024 21:46 EDT Fabricio Brooks MD PATHOLOGY ORDERA BLES [facility] [address] [place] [id number] documented in this encounter Visit Diagnoses Diagnosis Encounter for other general examination documented in this encounter Care Teams Railroad Operator Relationship Specialty Start Date End Date None, Provider PCP - General 05/21/21 documented as of this encounter
== END ==
PROVIDERS: Visit Provider Family Medicine
DX: R07.9 Chest pain, unspecified (principal)
CPT/HCPCS: 93017

== ENCOUNTER → 2025-09-01 02:08 | Outpatient (CLI) | payer BC, SELFPAY ==
--- NOTE | 2025-09-01 07:00 | DI.RAD_ITS ---
Exam(s) XR FOOT LT COMPLETE EXAM: XR FOOT LT COMPLETE CLINICAL HISTORY: Left foot pain,m79.672. TECHNIQUE: 2D digital imaging was performed. COMPARISON: No exams were available for comparison FINDINGS: 3 views No evidence of fracture or diastasis of the Lisfranc joint. Great toe metatarsophalangeal joint exhibits mild degenerative changes. No hallux valgus. Other articulations of the foot appear unremarkable. No degenerative changes nor osseous lesions on bone density is normal. There is no pes planus. Small calcification is noted posterior to the calcaneus at the Achilles insertion site. No degenerative changes in the hindfoot and no evidence of hindfoot valgus. IMPRESSION: Mild degenerative changes in the great toe metatarsophalangeal joint. No other significant radiographic findings in the left foot. DATA REPOSITORY: RADIATION DOSE DELIVERED:
--- NOTE | 2025-09-01 07:00 | DI.RAD_ITS ---
Exam(s) XR FOOT RT COMPLETE EXAM: XR FOOT RT COMPLETE CLINICAL HISTORY: Right foot pain,m79.671. TECHNIQUE: 2D digital imaging was performed. COMPARISON: CR XR FOOT LT COMPLETE from 09/01/2025 FINDINGS: 3 views No evidence of acute fracture or diastasis of the Lisfranc joint. Great toe metatarsophalangeal joint exhibits mild degenerative change, best seen on the lateral view. No other findings in the foot articulations. There is no pes planus. No inferior calcaneal spur. Bone density normal. No osseous lesions evident. Bone density normal. No osseous lesions. IMPRESSION: Mild degenerative changes in the great toe metatarsophalangeal joint. No other significant radiograph findings in the right foot. DATA REPOSITORY: RADIATION DOSE DELIVERED:
== END ==
PROVIDERS: PCP Family Medicine; Visit Provider Podiatrist
DX: M79.672 Pain in left foot (principal); M79.671 Pain in right foot; R93.89 Abnormal findings on diagnostic imaging of other specified body structures
CPT/HCPCS: 73630

== ENCOUNTER 2025-09-01 13:39 | Outpatient (CLI) | payer BC, SELFPAY ==
[2025-09-01 14:49] LABS: Anion Gap 9.2 mmol/L (3-11); BUN 14 mg/dL (7-18); CO2 28.8 mmol/L (21.0-32.0); Calcium 9.2 mg/dL (8.5-10.1); Chloride 103 mmol/L (98-107); Glucose 104 mg/dL (74-106); Potassium 3.5 mmol/L (3.5-5.1); Sodium 141 mmol/L (136-145); TSH (W/Ref FT4) 2.36 uIU/mL (0.36-3.74)
== END 2025-09-01 13:40 | disposition home or self-care (01) ==
LOC: LBO 13:39
PROVIDERS: PCP Family Medicine; Visit Provider Family Medicine
DX: R06.83 Snoring (principal); Z78.0 Asymptomatic menopausal state; E03.9 Hypothyroidism, unspecified; Z00.00 Encounter for general adult medical examination without abnormal findings
CPT/HCPCS: 36415; 80048; 84443